=== PATIENT | female | born 1955 | race Two or more races ===

== ENCOUNTER 2023-11-12 20:31 | Inpatient (IN) | payer OTHER ==
[~2023-11-12] VITALS: Ht 129.5 cm; Wt 67.2 kg
[~2023-11-12 20:31] MED LIST: CEPH-510 PO; ONDA-144 PO; SPIR100T4 PO
[2023-11-12 22:59] LABS: Basophils # (auto) 0 10 ^3/uL (0-0.2); Basophils % (auto) 0.1 % (0.0-2.0); Eosinophils # (auto) 0 10 ^3/uL (0-0.8); Eosinophils % (auto) 0.2 % (0.0-7.0); Hematocrit 33.2 % (36.0-46.0); Lymphocytes # (auto) 0.7 10 ^3/uL (0.4-5.4); Monocytes # (auto) 0.7 10 ^3/uL (0-1.3); Nucleated Red Blood Cells % 0.1 %
[2023-11-12 23:00] LABS: Hemoglobin 11.6 g/dL (12.2-16.2); Mean Corpuscular Hemoglobin 36.4 pg (28.0-32.0); Mean Corpuscular Volume 104.2 fL (80.0-100.0); Monocytes % (auto) 10.3 % (0.0-12.0); Neutrophils # (auto) 5.2 10 ^3/uL (1.6-8.6); Neutrophils % (auto) 79.4 % (37.0-80.0); Red Blood Cells 3.18 10^6/uL (4.0-5.20); Red Cell Distribution Width 15.8 % (11.8-14.3); White Blood Cell 6.6 10^3/uL (4.4-10.8)
[2023-11-12 23:15] LABS: INR 2.04 (0.9-1.15); Partial Thromboplastin Time 41.1 SEC (24.5-34.5); Prothrombin Time 20.4 sec (9.3-11.8)
[2023-11-12 23:19] LABS: Alanine Aminotransferase 29 U/L (7-40); Albumin 2.3 g/dL (3.2-4.8); Alkaline Phosphatase 173 U/L (46-116); Anion Gap 7 (5-15); Aspartate Aminotransferase 48 U/L (13-40); BUN/Creatinine Ratio 7.8 (10.0-20.0); Bilirubin, Total 5.2 mg/dL (0.2-1.0); Blood Urea Nitrogen 7 mg/dL (9-23); Calcium 7.5 mg/dL (8.7-10.4); Carbon Dioxide 24 mmol/L (20-30); Chloride 104 mmol/L (98-107); Glucose 122 mg/dL (74-106); Lipase 36 U/L (12-53); Potassium 2.9 mmol/L (3.5-5.1); Sodium 135 mmol/L (136-145); Total Protein 6.3 g/dL (5.7-8.2)
[2023-11-12 23:56] LABS: Large Platelets FEW; Platelet Estimate Decreased
[2023-11-12 23:57] LABS: Macrocytosis Slight
[2023-11-13] MEDS ORDERED: cefTRIAXone 2GM/50ML D5W 50 ML IV ONE (00:45)
[2023-11-13] MEDS: POTASSIUM CHL 20 Meq TABLET PO ONE (02:07)
[2023-11-13] MEDS: SODIUM CHLORIDE 0.9% 1,000 ML IV ONE (02:07)
[2023-11-13] MEDS ORDERED: cefTRIAXone 1GM/50ML D5W 50 ML IV ONE (04:45)
[2023-11-13] MEDS: cefTRIAXone 1GM/50ML D5W 50 ML IV ONE ×2 (04:52→11:02)
[2023-11-13] MEDS ORDERED: ONDANSETRON HCL 4 MG/2 ML VIAL IV PRN (05:15)
[2023-11-13] MEDS: CALCIUM GLUC 1,000mg/50ml-NS 50 ML IV ONE (05:31)
[2023-11-13] MEDS: POTASSIUM CHLORIDE 20 MEQ, LIDOCAINE 1% (LOCAL ANESTH.) 2 ML in SODIUM CHL 0.9% 100 ML IV ONE (08:48)
[2023-11-13] MEDS: LACTULOSE 20Gm/30ML SOLN PO SCH ×2 (09:45→22:00)
[2023-11-13] MEDS: SPIRONOLACTONE 25 MG TAB PO SCH (09:50)
[2023-11-13] MEDS: FUROSEMIDE 20 MG TAB PO SCH (09:50)
[2023-11-13] MEDS: PROPRANOLOL HCL 20 MG TAB PO SCH (09:51)
[2023-11-13 10:08] LABS: Basophils # (auto) 0 10 ^3/uL (0-0.2); Basophils % (auto) 0.2 % (0.0-2.0); Eosinophils # (auto) 0 10 ^3/uL (0-0.8); Eosinophils % (auto) 0.3 % (0.0-7.0); Hemoglobin 11.1 g/dL (12.2-16.2); Lymphocytes # (auto) 0.5 10 ^3/uL (0.4-5.4); Lymphocytes % (auto) 8.5 % (10.0-50.0); Mean Corpuscular Hemoglobin 35.5 pg (28.0-32.0); Mean Corpuscular Hgb Conc. 33.6 g/dL (32.0-36.0); Mean Corpuscular Volume 105.6 fL (80.0-100.0); Monocytes # (auto) 0.4 10 ^3/uL (0-1.3); Monocytes % (auto) 6.4 % (0.0-12.0); Neutrophils # (auto) 5.1 10 ^3/uL (1.6-8.6); Neutrophils % (auto) 84.6 % (37.0-80.0); Nucleated Red Blood Cells % 0.2 %; Red Blood Cells 3.13 10^6/uL (4.0-5.20); Red Cell Distribution Width 15.8 % (11.8-14.3); White Blood Cell 6.1 10^3/uL (4.4-10.8)
[2023-11-13 10:25] LABS: Alanine Aminotransferase 28 U/L (7-40); Albumin 2.2 g/dL (3.2-4.8); Alkaline Phosphatase 161 U/L (46-116); Anion Gap 10 (5-15); Aspartate Aminotransferase 49 U/L (13-40); BUN/Creatinine Ratio 9.3 (10.0-20.0); Blood Urea Nitrogen 7 mg/dL (9-23); Calcium 7.3 mg/dL (8.7-10.4); Carbon Dioxide 21 mmol/L (20-30); Chloride 105 mmol/L (98-107); Glucose 86 mg/dL (74-106); Magnesium 1.7 mg/dL (1.6-2.6); Potassium 3.3 mmol/L (3.5-5.1); Sodium 136 mmol/L (136-145)
[2023-11-13 10:26] LABS: Bilirubin, Total 4.8 mg/dL (0.2-1.0)
[2023-11-13 10:53] LABS: Hepatitis B Surface Antigen Negative (Negative)
[2023-11-13 11:09] LABS: INR 2.09 (0.9-1.15); Partial Thromboplastin Time 44.6 SEC (24.5-34.5); Prothrombin Time 20.9 sec (9.3-11.8)
[2023-11-13 11:14] LABS: Hepatitis A Ab IgM Negative
[2023-11-13 11:15] LABS: Hepatitis B Core IgM Negative; Hepatitis C Antibody Negative (Negative)
[2023-11-13] MEDS: phytonadione 10 MG in SODIUM CHL 0.9% 50 ML IV ONE ×2 (11:30→14:58)
[2023-11-13 12:05] LABS: % Iron Saturation 33.5 % (15-50)
[2023-11-13 12:08] LABS: Ferritin 85.6 ng/mL (10-291); Folate (Folic Acid) 15.75 ng/mL (>5.38)
[2023-11-13] MEDS: LACTULOSE 20Gm/30ML SOLN PO ONE (12:32)
[2023-11-13 12:54] LABS: Hepatitis B Core Total AB Negative (Negative)
[2023-11-13 13:01] LABS: Lactic Acid w/Reflex 2.7 mmol/L (0.4-2.0)
[2023-11-13 13:03] LABS: Erythrocyte Sedimentation Rate 26 mm/hr (0-20)
[2023-11-13 13:04] LABS: COVID19 ANTIGEN SOFIA FIA NEGATIVE (NEGATIVE); Rapid Influenza A Negative (Negative); Rapid Influenza B Negative (Negative)
[2023-11-13 13:10] LABS: Hepatitis A Total Antibody Positive (Negative)
[2023-11-13 13:11] LABS: Hepatitis B Surface Antibody Negative (Negative); Hepatitis B Surface Antigen Negative (Negative); Hepatitis C Antibody Negative (Negative)
[2023-11-13] MEDS: MAGNESIUM SULFATE 1GM/100ML 100 ML IV ONE (14:44)
[2023-11-13 15:29] VITALS: PULSE 92; RESP 19; O2SAT 97
[2023-11-13] MEDS ORDERED: ACETAMINOPHEN 500 MG TAB PO PRN (15:45)
[2023-11-13] MEDS: diphenhdrAMINE HCL 50 MG/1 ML VL ONE (15:57)
[2023-11-13] MEDS: diphenhdrAMINE HCL 50 MG/1 ML VL IV ONE ×2 (15:58→16:00)
[2023-11-13] MEDS: EPINEPHrine HCL 1 MG/1 ML AMP ONE (16:03)
[2023-11-13] MEDS: EPINEPHrine HCL 0.5 ML NEB ONE (16:11)
[2023-11-13] MEDS: ALBUTEROL SULF 2.5 MG/0.5ML(0.5%) NEB SOLN ONE (16:11)
[2023-11-13] MEDS: POTASSIUM CHL 20MEQ/100ML 100 ML IV ONE (16:31)
[2023-11-13 16:53] LABS: INR 2.05 (0.9-1.15); Partial Thromboplastin Time 38.1 SEC (24.5-34.5); Prothrombin Time 20.5 sec (9.3-11.8)
[2023-11-13 16:57] LABS: Alanine Aminotransferase 29 U/L (7-40); Alkaline Phosphatase 173 U/L (46-116); Anion Gap 8 (5-15); Aspartate Aminotransferase 53 U/L (13-40); BUN/Creatinine Ratio 7.8 (10.0-20.0); Blood Urea Nitrogen 8 mg/dL (9-23); Calcium 7.8 mg/dL (8.5-10.1); Carbon Dioxide 23 mmol/L (20-30); Chloride 107 mmol/L (98-107); Glucose 87 mg/dL (74-106); Potassium 3.6 mmol/L (3.5-5.1); Sodium 138 mmol/L (136-145)
[2023-11-13 16:58] LABS: Albumin 2.5 g/dL (3.2-4.8); Bilirubin, Total 4.4 mg/dL (0.2-1.0); Total Protein 6.6 g/dL (5.7-8.2)
[2023-11-13 16:59] LABS: Lactic Acid w/Reflex 4.7 mmol/L (0.4-2.0)
[2023-11-13 17:10] LABS: Magnesium 2.1 mg/dL (1.6-2.6)
[2023-11-13] MEDS ORDERED: VANCOMYCIN PER PHARMACY 0 MG IV SCH (17:15)
[2023-11-13] MEDS: EPINEPHrine HCL 1 MG/1 ML AMP SC ONE (17:54)
[2023-11-13] MEDS ORDERED: EPINEPHrine HCL 1 MG/1 ML AMP SC PRN ×2 (18:00→19:00)
[2023-11-13] MEDS: metroNIDAZOLE 500MG/100ML 100 ML IV SCH (18:17)
[2023-11-13] MEDS: HYDROCORTISONE SOD SUCC 100 MG/2ML INJ VIAL IV SCH (18:18)
[2023-11-13] MEDS: FAMOTIDINE (10MG/ML) 2ML VL IV ONE (18:21)
[2023-11-13 19:30] VITALS: PULSE 89; RESP 17; O2SAT 96
[2023-11-13] MEDS: VANCOMYCIN 1GM/200ML 200 ML IV ONE (20:00)
[2023-11-13] MEDS: CEFEPIME 1GM/ 50ML 50 ML IV SCH (22:00)
[2023-11-14] MEDS: metroNIDAZOLE 500MG/100ML 100 ML IV SCH (01:13)
[2023-11-14 06:12] LABS: Basophils # (auto) 0 10 ^3/uL (0-0.2); Eosinophils # (auto) 0 10 ^3/uL (0-0.8); Hematocrit 29.9 % (36.0-46.0); Hemoglobin 10.4 g/dL (12.2-16.2); Monocytes # (auto) 0.2 10 ^3/uL (0-1.3); Neutrophils # (auto) 3.7 10 ^3/uL (1.6-8.6); Neutrophils % (auto) 84.4 % (37.0-80.0); Nucleated Red Blood Cells % 0.1 %; White Blood Cell 4.4 10^3/uL (4.4-10.8)
[2023-11-14 06:17] LABS: Basophils % (auto) 0.1 % (0.0-2.0); Lymphocytes # (auto) 0.5 10 ^3/uL (0.4-5.4); Lymphocytes % (auto) 10.4 % (10.0-50.0); Mean Corpuscular Hemoglobin 36.6 pg (28.0-32.0); Mean Corpuscular Hgb Conc. 34.8 g/dL (32.0-36.0); Mean Corpuscular Volume 105.3 fL (80.0-100.0); Monocytes % (auto) 5.1 % (0.0-12.0); Red Blood Cells 2.84 10^6/uL (4.0-5.20); Red Cell Distribution Width 16.6 % (11.8-14.3)
[2023-11-14 06:27] LABS: Alanine Aminotransferase 56 U/L (7-40); Alkaline Phosphatase 110 U/L (46-116); Anion Gap 9 (5-15); Aspartate Aminotransferase 113 U/L (13-40); BUN/Creatinine Ratio 10.5 (10.0-20.0); Bilirubin, Total 3.7 mg/dL (0.2-1.0); Blood Urea Nitrogen 11 mg/dL (9-23); Calcium 7.6 mg/dL (8.5-10.1); Carbon Dioxide 20 mmol/L (20-30); Chloride 109 mmol/L (98-107); Cholesterol 84 mg/dL (< 200); Glucose 119 mg/dL (74-106); HDL Cholesterol 25 mg/dL (40-59); INR 2.19 (0.9-1.15); LDL Cholesterol 37 mg/dL (< 100); Partial Thromboplastin Time 43.9 SEC (24.5-34.5); Potassium 3.5 mmol/L (3.5-5.1); Prothrombin Time 21.8 sec (9.3-11.8); Sodium 138 mmol/L (136-145); Triglycerides 61 mg/dL (< 150)
[2023-11-14 06:28] LABS: Total Protein 5.4 g/dL (5.7-8.2)
[2023-11-14] MEDS: ALBUTEROL SULF 2.5 MG/0.5ML(0.5%) NEB SOLN NEB ONE (07:48)
[2023-11-14 08:03] LABS: Platelet Estimate Markedly Decreased
[2023-11-14 08:06] LABS: Anti-Nuclear Antibody Direct Negative (Negative)
[2023-11-14] MEDS ORDERED: cefTRIAXone 1GM/50ML D5W 50 ML IV SCH (09:00)
[2023-11-14] MEDS ORDERED: HYDROCORTISONE SOD SUCC 100 MG/2ML INJ VIAL IV SCH (10:00)
[2023-11-14] MEDS: SPIRONOLACTONE 25 MG TAB PO SCH (10:00)
[2023-11-14 10:52] VITALS: O2SAT 95
[2023-11-14 10:59] LABS: Sodium Urine < 10 mmol/L (40-220)
[2023-11-14 11:05] LABS: Amphetamine Screen, Urine Neg (NEGATIVE); Benzodiazephine Screen, Urine Neg (NEGATIVE)
[2023-11-14 11:06] LABS: Barbiturate Scree,Urine Neg (NEGATIVE); Cannabinoid Screen, Urine Neg (NEGATIVE); Cocaine Screen, Urine Neg (NEGATIVE); Opiate Scree,Urine Neg (NEGATIVE); Phencyclidine Screen, Urine Neg (NEGATIVE)
[2023-11-14 11:25] LABS: Urine Bacteria FEW /hpf (None Seen); Urine Blood 1+ /uL (Negative); Urine Clarity Clear (Clear); Urine Color Yellow (Yellow); Urine Hyaline Cast MOD /lpf (0 - 2); Urine Mucus FEW (None Seen); Urine Protein, UAD TRACE (Negative); Urine Specific Gravity 1.024 (1.001-1.035); Urine Urobilinogen Normal (Negative); Urine WBC 2 /hpf (0 - 5)
[2023-11-14] MEDS ORDERED: INFLUENZA QUAD 2023-2024 0.5 ML SYRG IM ONE (11:45)
[2023-11-14] MEDS: FAMOTIDINE (10MG/ML) 2ML VL IV SCH (12:27)
[2023-11-14 12:29] LABS: Basophils # (auto) 0 10 ^3/uL (0-0.2); Basophils % (auto) 0.1 % (0.0-2.0); Eosinophils # (auto) 0 10 ^3/uL (0-0.8); Lymphocytes # (auto) 0.5 10 ^3/uL (0.4-5.4); Monocytes # (auto) 0.3 10 ^3/uL (0-1.3); Monocytes % (auto) 6.3 % (0.0-12.0); Neutrophils # (auto) 4.5 10 ^3/uL (1.6-8.6); Nucleated Red Blood Cells % 0.1 %; White Blood Cell 5.3 10^3/uL (4.4-10.8)
[2023-11-14 12:32] LABS: Eosinophils % (auto) 0.1 % (0.0-7.0); Hemoglobin 10.4 g/dL (12.2-16.2); Lymphocytes % (auto) 8.8 % (10.0-50.0); Mean Corpuscular Hemoglobin 35.7 pg (28.0-32.0); Mean Corpuscular Hgb Conc. 33.6 g/dL (32.0-36.0); Mean Corpuscular Volume 106.3 fL (80.0-100.0); Neutrophils % (auto) 84.7 % (37.0-80.0); Red Blood Cells 2.91 10^6/uL (4.0-5.20); Red Cell Distribution Width 16.6 % (11.8-14.3)
[2023-11-14 12:35] LABS: Alanine Aminotransferase 64 U/L (7-40); Albumin 2.1 g/dL (3.2-4.8); Alkaline Phosphatase 103 U/L (46-116); Anion Gap 8 (5-15); Aspartate Aminotransferase 111 U/L (13-40); BUN/Creatinine Ratio 14.4 (10.0-20.0); Blood Urea Nitrogen 15 mg/dL (9-23); Calcium 7.5 mg/dL (8.7-10.4); Carbon Dioxide 20 mmol/L (20-30); Chloride 109 mmol/L (98-107); Glucose 185 mg/dL (74-106); Magnesium 2.1 mg/dL (1.6-2.6); Potassium 3.5 mmol/L (3.5-5.1); Sodium 137 mmol/L (136-145)
[2023-11-14 12:36] LABS: Total Protein 5.7 g/dL (5.7-8.2)
[2023-11-14 12:39] LABS: INR 2.31 (0.9-1.15); Partial Thromboplastin Time 45.2 SEC (24.5-34.5)
[2023-11-14 12:57] VITALS: BP 104/56; PULSE 75; RESP 14; TEMP 97.4; O2SAT 98
[2023-11-14] MEDS ORDERED: FURO1TAB33 PO (13:09)
[2023-11-14] MEDS: cefTRIAXone 1GM/50ML D5W 50 ML IV ONE (15:13)
[2023-11-14] MEDS ORDERED: cefTRIAXone 1GM/50ML D5W 50 ML IV ONE (15:15)
[2023-11-14 17:00] VITALS: BP 107/57; PULSE 80; RESP 17; TEMP 97.6; O2SAT 97
[2023-11-14] MEDS: VANCOMYCIN HCL 125 MG CAP PO SCH (17:51)
[2023-11-14 20:00] VITALS: PULSE 74; PULSE 82; RESP 17; O2SAT 99
[2023-11-14 22:00] VITALS: BP 106/51; PULSE 74; RESP 17; TEMP 98.6; O2SAT 99
[2023-11-15] VITALS (7 sets, daily range): BP systolic 100–119; BP diastolic 52–60; PULSE 65–79; RESP 17–24; TEMP 97.3–98.8; O2SAT 95–100
[2023-11-15 06:15] LABS: Basophils # (auto) 0 10 ^3/uL (0-0.2); Basophils % (auto) 0.1 % (0.0-2.0); Eosinophils # (auto) 0 10 ^3/uL (0-0.8); Hemoglobin 10.4 g/dL (12.2-16.2); Lymphocytes # (auto) 0.6 10 ^3/uL (0.4-5.4); Lymphocytes % (auto) 9.2 % (10.0-50.0); Monocytes # (auto) 0.4 10 ^3/uL (0-1.3); Neutrophils # (auto) 5.7 10 ^3/uL (1.6-8.6); Neutrophils % (auto) 84.5 % (37.0-80.0)
[2023-11-15 06:18] LABS: Eosinophils % (auto) 0.1 % (0.0-7.0); Hematocrit 29.9 % (36.0-46.0); Mean Corpuscular Hemoglobin 36.9 pg (28.0-32.0); Mean Corpuscular Hgb Conc. 34.9 g/dL (32.0-36.0); Mean Corpuscular Volume 105.7 fL (80.0-100.0); Monocytes % (auto) 6.1 % (0.0-12.0); Red Blood Cells 2.83 10^6/uL (4.0-5.20); Red Cell Distribution Width 16.5 % (11.8-14.3); White Blood Cell 6.7 10^3/uL (4.4-10.8)
[2023-11-15 06:30] LABS: Alanine Aminotransferase 60 U/L (7-40); Alkaline Phosphatase 120 U/L (46-116); Anion Gap 7 (5-15); Aspartate Aminotransferase 74 U/L (13-40); BUN/Creatinine Ratio 15.7 (10.0-20.0); Blood Urea Nitrogen 14 mg/dL (9-23); Calcium 7.7 mg/dL (8.7-10.4); Carbon Dioxide 21 mmol/L (20-30); Chloride 109 mmol/L (98-107); Glucose 98 mg/dL (74-106); Magnesium 2.3 mg/dL (1.6-2.6); Potassium 3.6 mmol/L (3.5-5.1); Sodium 137 mmol/L (136-145)
[2023-11-15 06:31] LABS: Bilirubin, Total 2.2 mg/dL (0.2-1.0); INR 2.2 (0.9-1.15); Partial Thromboplastin Time 44.7 SEC (24.5-34.5); Prothrombin Time 21.9 sec (9.3-11.8); Total Protein 5.5 g/dL (5.7-8.2)
[2023-11-15 08:28] LABS: Platelet Estimate 24
[2023-11-15 08:29] LABS: Macrocytosis Moderate
[2023-11-15] MEDS ORDERED: cefTRIAXone 1GM/50ML D5W 50 ML IV SCH (09:00)
[2023-11-15] MEDS: cefTRIAXone 1GM/50ML D5W 50 ML IV SCH (09:25)
[2023-11-15] MEDS: FLORASTOR (S. BOULARDII) 250 MG CAP PO SCH (09:29)
[2023-11-15] MEDS: POTASSIUM CHL 20 Meq TABLET PO SCH (09:29)
[2023-11-15] MEDS: LACTULOSE 20Gm/30ML SOLN PO SCH (09:29)
[2023-11-15] MEDS: FUROSEMIDE 40 MG TAB PO SCH (10:00)
[2023-11-15] MEDS: PROPRANOLOL HCL 20 MG TAB PO SCH (10:00)
[2023-11-15 17:06] LABS: Actin (Smooth Muscle) Antibody 32 Units (0-19)
[2023-11-16 05:00] VITALS: BP 125/52; PULSE 77; RESP 16; TEMP 97.4; O2SAT 98
[2023-11-16 06:43] LABS: Alanine Aminotransferase 59 U/L (7-40); Albumin 2.1 g/dL (3.2-4.8); Alkaline Phosphatase 109 U/L (46-116); Anion Gap 6 (5-15); Aspartate Aminotransferase 61 U/L (13-40); BUN/Creatinine Ratio 14.7 (10.0-20.0); Basophils # (auto) 0 10 ^3/uL (0-0.2); Basophils % (auto) 0.2 % (0.0-2.0); Blood Urea Nitrogen 11 mg/dL (9-23); Calcium 7.8 mg/dL (8.7-10.4); Carbon Dioxide 22 mmol/L (20-30); Chloride 111 mmol/L (98-107); Eosinophils # (auto) 0.1 10 ^3/uL (0-0.8); Eosinophils % (auto) 1.5 % (0.0-7.0); Glucose 97 mg/dL (74-106); Lymphocytes # (auto) 0.8 10 ^3/uL (0.4-5.4); Magnesium 2.1 mg/dL (1.6-2.6); Monocytes # (auto) 0.4 10 ^3/uL (0-1.3); Neutrophils # (auto) 2.6 10 ^3/uL (1.6-8.6); Potassium 3.2 mmol/L (3.5-5.1); Sodium 139 mmol/L (136-145); White Blood Cell 3.9 10^3/uL (4.4-10.8)
[2023-11-16 06:44] LABS: Total Protein 5.6 g/dL (5.7-8.2)
[2023-11-16 06:45] LABS: Hematocrit 32.3 % (36.0-46.0); Hemoglobin 11.1 g/dL (12.2-16.2); Lymphocytes % (auto) 20.8 % (10.0-50.0); Mean Corpuscular Hemoglobin 35.9 pg (28.0-32.0); Mean Corpuscular Hgb Conc. 34.2 g/dL (32.0-36.0); Mean Corpuscular Volume 104.9 fL (80.0-100.0); Monocytes % (auto) 11.3 % (0.0-12.0); Neutrophils % (auto) 66.2 % (37.0-80.0); Nucleated Red Blood Cells % 0.2 %; Red Blood Cells 3.08 10^6/uL (4.0-5.20)
[2023-11-16 07:19] LABS: INR 1.79 (0.9-1.15); Prothrombin Time 18.1 sec (9.3-11.8)
[2023-11-16 08:00] VITALS: PULSE 70; PULSE 71; RESP 20; O2SAT 99
[2023-11-16 08:19] LABS: Anisocytosis Slight; Macrocytosis Slight
[2023-11-16 08:20] LABS: Platelet Estimate Markedly Decreased
[2023-11-16] MEDS: LACTULOSE 20Gm/30ML SOLN PO SCH (08:32)
[2023-11-16 08:33] VITALS: BP 95/56; PULSE 69; RESP 17; TEMP 97.5; O2SAT 95
[2023-11-16] MEDS: POTASSIUM CHL 20 Meq TABLET PO ONE (08:33)
[2023-11-16] MEDS ORDERED: LACT10PA2 PO (10:31)
[2023-11-16] MEDS ORDERED: VANC125PO PO (10:31)
[2023-11-16 12:52] VITALS: BP 106/60; PULSE 78; RESP 17; TEMP 97.8; O2SAT 98
== END 2023-11-16 14:15 | disposition home or self-care (01) ==
LOC: ER 20:31 → OVERFLOW 11-13 05:19 → CENTRAL 11-14 11:01 → TELE-CENTR 11-15 05:39
PROVIDERS: ADMIT Internal Medicine Geriatric Medicine; ATTEND Internal Medicine Geriatric Medicine
DX: K74.60 Unspecified cirrhosis of liver (principal); K76.7 Hepatorenal syndrome; I67.1 Cerebral aneurysm, nonruptured; A04.72 Enterocolitis due to Clostridium difficile, not specified as recurrent; D68.9 Coagulation defect, unspecified; D69.6 Thrombocytopenia, unspecified; R65.10 Systemic inflammatory response syndrome (SIRS) of non-infectious origin without acute organ dysfunction; K76.6 Portal hypertension; N17.9 Acute kidney failure, unspecified; E87.1 Hypo-osmolality and hyponatremia; D63.8 Anemia in other chronic diseases classified elsewhere; I85.10 Secondary esophageal varices without bleeding; E87.20 Acidosis, unspecified; Z20.822 Contact with and (suspected) exposure to COVID-19; J90 Pleural effusion, not elsewhere classified; S30.1XXA Contusion of abdominal wall, initial encounter; E87.6 Hypokalemia; E80.6 Other disorders of bilirubin metabolism; R16.1 Splenomegaly, not elsewhere classified; K80.20 Calculus of gallbladder without cholecystitis without obstruction; I10 Essential (primary) hypertension; E83.42 Hypomagnesemia; R74.01 Elevation of levels of liver transaminase levels; X58.XXXA Exposure to other specified factors, initial encounter; T78.2XXA Anaphylactic shock, unspecified, initial encounter; D53.9 Nutritional anemia, unspecified; E66.01 Morbid (severe) obesity due to excess calories; H54.8 Legal blindness, as defined in USA; K92.2 Gastrointestinal hemorrhage, unspecified; Y93.89 Activity, other specified; Y92.89 Other specified places as the place of occurrence of the external cause; Y99.8 Other external cause status; Z68.41 Body mass index [BMI] 40.0-44.9, adult; K75.81 Nonalcoholic steatohepatitis (NASH)
CPT/HCPCS: 36415; 70450; 71045; 76705; 80053; 80061; 80074; 80307; 80320; 81001; 82140; 82270; 82550; 82570; 82607; 82728; 82746; 83010; 83036; 83540; 83550; 83605; 83615; 83690; 83735; 83880; 84300; 84425; 84443; 84484; 85025; 85045; 85048; 85384; 85610; 85652; 85730; 86038; 86141; 86704; 86706; 86708; 86803; 87040; 87081; 87086; 87340; 87426; 87493; 87804; 93005; 93306; 94640; 96361; 96365; G0378; J0171; J2001; J3430; J3480; J3490

== ENCOUNTER 2023-11-25 07:31 | Inpatient (IN) | payer OTHER ==
[~2023-11-25] VITALS: Ht 144.8 cm; Wt 22.4 kg
[2023-11-25] VITALS (10 sets, daily range): BP systolic 93–111; BP diastolic 50–58; PULSE 83–120; RESP 13–25; TEMP 97.7–98; O2SAT 93–100
[~2023-11-25 07:31] MED LIST changes: -CEPH-510 PO; +LACT10PA2 PO; -ONDA-144 PO; -SPIR100T4 PO; +VANC125PO PO
[2023-11-25 08:39] LABS: Basophils # (auto) 0 10 ^3/uL (0-0.2); Eosinophils # (auto) 0 10 ^3/uL (0-0.8); Hemoglobin 11.5 g/dL (12.2-16.2); Lymphocytes # (auto) 0.3 10 ^3/uL (0.4-5.4); Lymphocytes % (auto) 5.1 % (10.0-50.0); Monocytes # (auto) 0.1 10 ^3/uL (0-1.3); Neutrophils # (auto) 4.6 10 ^3/uL (1.6-8.6)
[2023-11-25 08:41] LABS: Basophils % (auto) 0.8 % (0.0-2.0); Eosinophils % (auto) 0.9 % (0.0-7.0); Hematocrit 34.4 % (36.0-46.0); Mean Corpuscular Hemoglobin 36.1 pg (28.0-32.0); Mean Corpuscular Hgb Conc. 33.4 g/dL (32.0-36.0); Mean Corpuscular Volume 108.2 fL (80.0-100.0); Monocytes % (auto) 1.3 % (0.0-12.0); Neutrophils % (auto) 91.9 % (37.0-80.0); Nucleated Red Blood Cells % 0.2 %; Red Blood Cells 3.18 10^6/uL (4.0-5.20); Red Cell Distribution Width 17.7 % (11.8-14.3)
[2023-11-25] MEDS: IBUPROFEN 400 MG TAB PO ONE (08:47)
[2023-11-25] MEDS: SODIUM CHLORIDE 0.9% 1,000 ML IV ONE (08:48)
[2023-11-25] MEDS: SODIUM CHLORIDE 0.9% 2,050 ML IV ONE (09:21)
[2023-11-25 09:22] LABS: Alanine Aminotransferase 37 U/L (7-40); Albumin 2.4 g/dL (3.2-4.8); Alkaline Phosphatase 167 U/L (46-116); Anion Gap 8 (5-15); Aspartate Aminotransferase 53 U/L (13-40); BUN/Creatinine Ratio 8.8 (10.0-20.0); Blood Urea Nitrogen 6 mg/dL (9-23); Calcium 7.8 mg/dL (8.7-10.4); Carbon Dioxide 23 mmol/L (20-30); Chloride 105 mmol/L (98-107); Glucose 90 mg/dL (74-106); Magnesium 1.5 mg/dL (1.6-2.6); Potassium 3.7 mmol/L (3.5-5.1); Sodium 136 mmol/L (136-145)
[2023-11-25 09:23] LABS: Bilirubin, Total 4.7 mg/dL (0.2-1.0); Total Protein 6.1 g/dL (5.7-8.2)
[2023-11-25] MEDS: FUROSEMIDE 40 MG/4 ML VIAL IV ONE (09:30)
[2023-11-25] MEDS: PIPERACILLIN-TAZOB 3.375GM 100 ML IV ONE (09:31)
[2023-11-25 09:53] LABS: Lactic Acid w/Reflex 3.3 mmol/L (0.4-2.0)
[2023-11-25 10:33] LABS: Urine Bacteria NONE SEEN /hpf (None Seen); Urine Blood 1+ /uL (Negative); Urine Clarity HAZY (Clear); Urine Color Yellow (Yellow); Urine Mucus FEW (None Seen); Urine Protein, UAD TRACE (Negative); Urine Specific Gravity 1.012 (1.001-1.035); Urine Urobilinogen Normal (Negative); Urine WBC 6 /hpf (0 - 5)
[2023-11-25] MEDS: MAGNESIUM SULFATE 1GM/100ML 100 ML IV SCH ×2 (11:35→15:25)
[2023-11-25] MEDS: LACTULOSE 20Gm/30ML SOLN PO ONE (12:51)
[2023-11-25] MEDS ORDERED: MORPHINE SULFATE INJ 2 MG/ml SYRG IV PRN (14:30)
[2023-11-25] MEDS: NOREPINEPHRINE 8 MG/250ML KIT 250 ML IV SCH (14:30)
[2023-11-25] MEDS ORDERED: MORPHINE SULFATE 4 MG/ML SYR/VIAL IV PRN (14:30)
[2023-11-25] MEDS: cefTRIAXone 2GM/50ML D5W 50 ML IV ONE (14:30)
[2023-11-25] MEDS ORDERED: VANCOMYCIN PER PHARMACY 0 MG IV SCH (14:30)
[2023-11-25] MEDS ORDERED: cefTRIAXone 1GM/50ML D5W 50 ML IV ONE (14:30)
[2023-11-25] MEDS ORDERED: ONDANSETRON HCL 4 MG/2 ML VIAL IV PRN (14:30)
[2023-11-25 15:18] LABS: INR 1.94 (0.9-1.15); Prothrombin Time 19.5 sec (9.3-11.8)
[2023-11-25 15:29] LABS: Lactic Acid w/Reflex 2.9 mmol/L (0.4-2.0)
[2023-11-25] MEDS: SPIRONOLACTONE 25 MG TAB PO ONE (15:33)
[2023-11-25] MEDS: VANCOMYCIN 1GM/200ML 200 ML IV ONE (16:05)
[2023-11-25] MEDS: PANTOPRAZOLE 40 MG/10 ML VIAL INJ IV ONE (16:05)
[2023-11-25 16:52] LABS: COVID19 ANTIGEN SOFIA FIA NEGATIVE (NEGATIVE); Rapid Influenza A Negative (Negative); Rapid Influenza B Negative (Negative)
[2023-11-25] MEDS: SODIUM CHLORIDE 0.9% 1,000 ML IV SCH (17:45)
[2023-11-25] MEDS: LACTULOSE 20Gm/30ML SOLN PO SCH (21:42)
[2023-11-26] VITALS (17 sets, daily range): BP systolic 83–117; BP diastolic 45–58; PULSE 82–101; RESP 14–26; TEMP 97.3–98.4; O2SAT 96–100
[2023-11-26 05:03] LABS: Basophils # (auto) 0 10 ^3/uL (0-0.2); Eosinophils # (auto) 0 10 ^3/uL (0-0.8); Lymphocytes # (auto) 0.3 10 ^3/uL (0.4-5.4); Monocytes # (auto) 0.3 10 ^3/uL (0-1.3); Neutrophils # (auto) 4.4 10 ^3/uL (1.6-8.6)
[2023-11-26 05:06] LABS: Basophils % (auto) 0.2 % (0.0-2.0); Hematocrit 28.7 % (36.0-46.0); Hemoglobin 9.9 g/dL (12.2-16.2); Lymphocytes % (auto) 6.2 % (10.0-50.0); Mean Corpuscular Hemoglobin 37.2 pg (28.0-32.0); Mean Corpuscular Hgb Conc. 34.5 g/dL (32.0-36.0); Mean Corpuscular Volume 107.9 fL (80.0-100.0); Monocytes % (auto) 5.1 % (0.0-12.0); Neutrophils % (auto) 88.5 % (37.0-80.0); Nucleated Red Blood Cells % 0.1 %; Red Blood Cells 2.66 10^6/uL (4.0-5.20); Red Cell Distribution Width 17.8 % (11.8-14.3)
[2023-11-26 05:21] LABS: Alanine Aminotransferase 25 U/L (7-40); Alkaline Phosphatase 130 U/L (46-116); Anion Gap 3 (5-15); Aspartate Aminotransferase 41 U/L (13-40); Blood Urea Nitrogen 7 mg/dL (9-23); Calcium 7.3 mg/dL (8.5-10.1); Carbon Dioxide 24 mmol/L (20-30); Chloride 111 mmol/L (98-107); Glucose 88 mg/dL (74-106); Potassium 3.5 mmol/L (3.5-5.1); Sodium 138 mmol/L (136-145)
[2023-11-26 05:22] LABS: Bilirubin, Total 3.1 mg/dL (0.2-1.0); Total Protein 5.3 g/dL (5.7-8.2)
[2023-11-26] MEDS: PANTOPRAZOLE 40 MG/10 ML VIAL INJ IV SCH (07:54)
[2023-11-26] MEDS: cefTRIAXone 2GM/50ML D5W 50 ML IV SCH (07:54)
[2023-11-26 08:50] LABS: Anisocytosis Slight; Macrocytosis Moderate
[2023-11-26 08:54] LABS: Large Platelets FEW; Platelet Estimate Decreased
[2023-11-26] MEDS: VANCOMYCIN 750mg/150ml 150 ML IV SCH (10:15)
[2023-11-26] MEDS: LACTULOSE 20Gm/30ML SOLN PO ONE (12:45)
[2023-11-26] MEDS: SPIRONOLACTONE 25 MG TAB PO ONE (13:30)
[2023-11-26 15:41] LABS: INR 2.25 (0.9-1.15); Partial Thromboplastin Time 45.6 SEC (24.5-34.5); Prothrombin Time 22.4 sec (9.3-11.8)
[2023-11-26] MEDS: LACTULOSE 20Gm/30ML SOLN PO SCH (21:47)
[2023-11-27] VITALS (50 sets, daily range): BP systolic 92–115; BP diastolic 47–63; PULSE 62–106; RESP 14–29; TEMP 97.9–98.8; O2SAT 95–100
[2023-11-27 04:54] LABS: Potassium 3.5 mmol/L (3.5-5.1)
[2023-11-27 04:55] LABS: Calcium 7.5 mg/dL (8.7-10.4)
[2023-11-27 05:00] LABS: BUN/Creatinine Ratio 13.5 (10.0-20.0)
[2023-11-27 05:02] LABS: Phosphorus 2.1 mg/dL (2.4-5.1)
[2023-11-27] MEDS: SPIRONOLACTONE 25 MG TAB PO SCH (11:09)
[2023-11-27 15:19] LABS: Body Fluid Polymorphonuclear 16 % (0-25); Body Fluid Red Blood Cells 95 CUMM (0-2000); Body Fluid White Blood Cells 10 CUMM (0-200)
[2023-11-27] MEDS: FLORASTOR (S. BOULARDII) 250 MG CAP PO SCH (21:46)
[2023-11-28] VITALS (14 sets, daily range): BP systolic 107–131; BP diastolic 50–67; PULSE 81–99; RESP 12–20; TEMP 97.5–99.3; O2SAT 94–99
[2023-11-28 04:46] LABS: Basophils # (auto) 0 10 ^3/uL (0-0.2); Eosinophils # (auto) 0.1 10 ^3/uL (0-0.8); Hemoglobin 10.2 g/dL (12.2-16.2); Lymphocytes # (auto) 0.5 10 ^3/uL (0.4-5.4); Mean Corpuscular Volume 108.7 fL (80.0-100.0); Monocytes # (auto) 0.3 10 ^3/uL (0-1.3); Red Cell Distribution Width 18.2 % (11.8-14.3); White Blood Cell 3.8 10^3/uL (4.4-10.8)
[2023-11-28 05:02] LABS: Basophils % (auto) 0.4 % (0.0-2.0); Eosinophils % (auto) 2.7 % (0.0-7.0); Hematocrit 30.7 % (36.0-46.0); Lymphocytes % (auto) 13.6 % (10.0-50.0); Mean Corpuscular Hgb Conc. 33.1 g/dL (32.0-36.0); Monocytes % (auto) 8.6 % (0.0-12.0); Neutrophils # (auto) 2.8 10 ^3/uL (1.6-8.6); Neutrophils % (auto) 74.7 % (37.0-80.0); Nucleated Red Blood Cells % 0.3 %; Red Blood Cells 2.82 10^6/uL (4.0-5.20)
[2023-11-28 05:25] LABS: Alanine Aminotransferase 23 U/L (7-40); Albumin 1.9 g/dL (3.2-4.8); Alkaline Phosphatase 109 U/L (46-116); Anion Gap 2 (5-15); Aspartate Aminotransferase 32 U/L (13-40); BUN/Creatinine Ratio 12.5 (10.0-20.0); Bilirubin, Total 2.6 mg/dL (0.2-1.0); Blood Urea Nitrogen 8 mg/dL (9-23); Calcium 7.4 mg/dL (8.7-10.4); Carbon Dioxide 24 mmol/L (20-30); Chloride 110 mmol/L (98-107); Glucose 78 mg/dL (74-106); Potassium 3.8 mmol/L (3.5-5.1); Sodium 136 mmol/L (136-145); Total Protein 5.3 g/dL (5.7-8.2)
[2023-11-28] MEDS: PANTOPRAZOLE 40 MG TAB PO SCH (08:37)
[2023-11-28 13:07] LABS: Protein, Body Fluid 0.3 g/dL (.)
[2023-11-29 05:00] VITALS: BP 116/60; PULSE 97; RESP 20; TEMP 98.1; O2SAT 95
[2023-11-29 09:00] VITALS: BP 128/73; PULSE 108; RESP 20; TEMP 98.1; O2SAT 98
[2023-11-29 13:00] VITALS: BP 125/63; PULSE 102; RESP 18; TEMP 98.2; O2SAT 98
[2023-11-29] MEDS ORDERED: CEFD300C2 PO (13:12)
== END 2023-11-29 17:28 | disposition home or self-care (01) | DRG 720 ==
LOC: ER 07:31 → TELE 14:31 → DOU IN ICU 15:53 → WEST WING 11-28 16:11
PROVIDERS: ADMIT Nurse Practitioner Family; ATTEND Nurse Practitioner Acute Care
PROC: 05HB33Z Insertion of Infusion Device into Right Basilic Vein, Percutaneous Approach (ICD-10-PCS; 2023-11-25)
PROC: B54NZZA Ultrasonography of Left Upper Extremity Veins, Guidance (ICD-10-PCS; 2023-11-25)
PROC: 0W9G3ZZ Drainage of Peritoneal Cavity, Percutaneous Approach (ICD-10-PCS; principal; 2023-11-27)
DX: A41.51 Sepsis due to Escherichia coli [E. coli] (principal); E43 Unspecified severe protein-calorie malnutrition; D69.6 Thrombocytopenia, unspecified; D68.9 Coagulation defect, unspecified; E87.21 Acute metabolic acidosis; K70.31 Alcoholic cirrhosis of liver with ascites; E87.20 Acidosis, unspecified; D63.8 Anemia in other chronic diseases classified elsewhere; K76.6 Portal hypertension; Z20.822 Contact with and (suspected) exposure to COVID-19; I10 Essential (primary) hypertension; E83.42 Hypomagnesemia; H54.8 Legal blindness, as defined in USA; D69.59 Other secondary thrombocytopenia; G89.29 Other chronic pain; K80.20 Calculus of gallbladder without cholecystitis without obstruction; E66.01 Morbid (severe) obesity due to excess calories; H26.9 Unspecified cataract; Z96.1 Presence of intraocular lens; D53.9 Nutritional anemia, unspecified; Z68.1 Body mass index [BMI] 19.9 or less, adult
CPT/HCPCS: 36415; 71046; 76705; 76942; 80053; 80069; 80202; 81001; 82140; 83605; 83615; 83735; 83880; 83986; 84100; 84484; 85025; 85379; 85384; 85610; 85730; 87040; 87077; 87081; 87086; 87186; 87205; 87426; 87493; 87804; 89051; 93005; 99291; C9113; G0378; J2543

== ENCOUNTER 2023-12-29 17:00 | Inpatient (IN) | payer MEDICAID ==
[~2023-12-29] VITALS: Ht 149.9 cm; Wt 61.8 kg
[~2023-12-29 17:00] MED LIST changes: +CEFD300C2 PO; +PROP60CA34 PO; -VANC125PO PO
[2023-12-29 19:26] LABS: Basophils # (auto) 0 10 ^3/uL (0-0.2); Eosinophils # (auto) 0.1 10 ^3/uL (0-0.8); Eosinophils % (auto) 0.9 % (0.0-7.0); Hemoglobin 12.2 g/dL (12.2-16.2); Monocytes # (auto) 0.5 10 ^3/uL (0-1.3); Monocytes % (auto) 6.4 % (0.0-12.0); Nucleated Red Blood Cells % 0.1 %
[2023-12-29 19:29] LABS: Basophils % (auto) 0.1 % (0.0-2.0); Hematocrit 35.5 % (36.0-46.0); Lymphocytes # (auto) 0.4 10 ^3/uL (0.4-5.4); Lymphocytes % (auto) 4.7 % (10.0-50.0); Mean Corpuscular Hemoglobin 36.8 pg (28.0-32.0); Mean Corpuscular Hgb Conc. 34.2 g/dL (32.0-36.0); Mean Corpuscular Volume 107.7 fL (80.0-100.0); Neutrophils # (auto) 6.9 10 ^3/uL (1.6-8.6); Neutrophils % (auto) 87.9 % (37.0-80.0); Red Cell Distribution Width 16.5 % (11.8-14.3); White Blood Cell 7.8 10^3/uL (4.4-10.8)
[2023-12-29 19:32] LABS: INR 1.78 (0.9-1.15)
[2023-12-29 19:36] LABS: Alanine Aminotransferase 29 U/L (7-40); Albumin 2.1 g/dL (3.2-4.8); Alkaline Phosphatase 219 U/L (46-116); Anion Gap 2 (5-15); Aspartate Aminotransferase 53 U/L (13-40); BUN/Creatinine Ratio 17.9 (10.0-20.0); Bilirubin, Total 5.3 mg/dL (0.2-1.0); Blood Urea Nitrogen 14 mg/dL (9-23); Calcium 7.8 mg/dL (8.7-10.4); Carbon Dioxide 28 mmol/L (20-30); Chloride 103 mmol/L (98-107); Glucose 93 mg/dL (74-106); Potassium 4.1 mmol/L (3.5-5.1); Sodium 133 mmol/L (136-145); Total Protein 6.5 g/dL (5.7-8.2)
[2023-12-29 20:02] VITALS: PULSE 86; RESP 20; O2SAT 95
[2023-12-29] MEDS ORDERED: SPIRONOLACTONE 25 MG TAB ONE (21:02)
[2023-12-29] MEDS ORDERED: FUROSEMIDE INJECTION 10 ML ONE (21:02)
[2023-12-29] MEDS: FUROSEMIDE 100 MG/10ML VIAL IV ONE (21:06)
[2023-12-29] MEDS: SPIRONOLACTONE 25 MG TAB PO ONE (21:06)
[2023-12-29] MEDS ORDERED: IBUPROFEN 600 MG TAB PO PRN (22:30)
[2023-12-29] MEDS ORDERED: ONDANSETRON HCL 4 MG/2 ML VIAL IV PRN (22:30)
[2023-12-29] MEDS ORDERED: DOCUSATE SOD 100 MG CAP PO PRN (22:30)
[2023-12-29] MEDS ORDERED: ALBUTEROL SULF 2.5 MG/0.5ML(0.5%) NEB SOLN NEB PRN (22:30)
[2023-12-29 22:39] VITALS: BP 105/59; PULSE 86; RESP 20; O2SAT 95
[2023-12-29] MEDS ORDERED: MORPHINE SULFATE INJ 2 MG/ml SYRG IV PRN (23:15)
[2023-12-29] MEDS ORDERED: NITROGLYCERIN 0.4 MG SL TAB SL PRN (23:15)
[2023-12-29] MEDS ORDERED: ALBUMIN 25% 100 ML IV ONE (23:20)
[2023-12-29] MEDS: ALBUMIN 25% 100 ML IV ONE (23:25)
[2023-12-30] VITALS (8 sets, daily range): BP systolic 99–106; BP diastolic 53–60; PULSE 79–87; RESP 16–20; TEMP 98.1–98.6; O2SAT 92–100
[2023-12-30 02:02] LABS: Urine Bacteria FEW /hpf (None Seen); Urine Blood TRACE /uL (Negative); Urine Clarity Clear (Clear); Urine Color Light-Yellow (Yellow); Urine Hyaline Cast MOD /lpf (0 - 2); Urine Mucus FEW (None Seen); Urine Protein, UAD Negative (Negative); Urine Specific Gravity 1.004 (1.001-1.035); Urine Urobilinogen Normal (Negative); Urine WBC <1 /hpf (0 - 5)
[2023-12-30] MEDS ORDERED: ALBUMIN 25% 100 ML IV ONE (02:35)
[2023-12-30] MEDS: ALBUMIN 25% 100 ML IV ONE ×3 (02:38→09:45)
[2023-12-30 05:28] LABS: Basophils # (auto) 0 10 ^3/uL (0-0.2); Eosinophils # (auto) 0 10 ^3/uL (0-0.8); Eosinophils % (auto) 0.1 % (0.0-7.0); Hemoglobin 8.8 g/dL (12.2-16.2); Lymphocytes # (auto) 0.5 10 ^3/uL (0.4-5.4); Monocytes # (auto) 0.3 10 ^3/uL (0-1.3); Neutrophils # (auto) 3.3 10 ^3/uL (1.6-8.6); Red Blood Cells 2.41 10^6/uL (4.0-5.20); Red Cell Distribution Width 16.6 % (11.8-14.3); White Blood Cell 4.1 10^3/uL (4.4-10.8)
[2023-12-30 05:31] LABS: Basophils % (auto) 0.1 % (0.0-2.0); Hematocrit 26.4 % (36.0-46.0); Lymphocytes % (auto) 12.3 % (10.0-50.0); Mean Corpuscular Hemoglobin 36.5 pg (28.0-32.0); Mean Corpuscular Hgb Conc. 33.4 g/dL (32.0-36.0); Mean Corpuscular Volume 109.5 fL (80.0-100.0); Monocytes % (auto) 7.5 % (0.0-12.0); Nucleated Red Blood Cells % 0.1 %
[2023-12-30 05:42] LABS: Alanine Aminotransferase 17 U/L (7-40); Albumin 2.5 g/dL (3.2-4.8); Alkaline Phosphatase 145 U/L (46-116); Anion Gap 7 (5-15); Aspartate Aminotransferase 33 U/L (13-40); BUN/Creatinine Ratio 14.9 (10.0-20.0); Bilirubin, Total 4.7 mg/dL (0.2-1.0); Blood Urea Nitrogen 14 mg/dL (9-23); Calcium 8.1 mg/dL (8.7-10.4); Carbon Dioxide 25 mmol/L (20-30); Chloride 103 mmol/L (98-107); Glucose 133 mg/dL (74-106); Potassium 3.6 mmol/L (3.5-5.1); Sodium 135 mmol/L (136-145); Total Protein 5.7 g/dL (5.7-8.2)
[2023-12-30] MEDS: SODIUM CHLOR 0.9% PF (SALINE LOCK) 10ML VIAL/SYR IV SCH (06:03)
[2023-12-30 07:52] LABS: Anisocytosis Slight; Macrocytosis Slight; Platelet Estimate Markedly Decreased
[2023-12-30] MEDS: FUROSEMIDE 40 MG/4 ML VIAL IV SCH (09:45)
[2023-12-30] MEDS: SPIRONOLACTONE 25 MG TAB PO SCH (09:46)
[2023-12-30] MEDS: LACTULOSE 20Gm/30ML SOLN ONE (09:54)
[2023-12-30] MEDS: LACTULOSE 20Gm/30ML SOLN PO SCH (09:55)
[2023-12-30] MEDS: SODIUM CHLORIDE 0.9% 1,000 ML IV SCH (11:01)
[2023-12-30] MEDS ORDERED: NOREPINEPHRINE 8 MG/250ML KIT 250 ML IV SCH (12:45)
[2023-12-30] MEDS ORDERED: FUR20T PO (17:26)
[2023-12-31] VITALS (11 sets, daily range): BP systolic 100–137; BP diastolic 49–63; PULSE 58–89; RESP 16–20; TEMP 98–98.5; O2SAT 91–100
[2024-01-01] VITALS (8 sets, daily range): BP systolic 106–123; BP diastolic 40–80; PULSE 79–100; RESP 16–20; TEMP 97.4–98.4; O2SAT 94–99
[2024-01-02 05:00] VITALS: BP 95/43; PULSE 88; RESP 16; TEMP 98.2; O2SAT 97
[2024-01-02 08:00] VITALS: PULSE 93
[2024-01-02 08:22] VITALS: BP 111/55; PULSE 91; RESP 18; TEMP 98.2; O2SAT 94
[2024-01-02] MEDS ORDERED: SPIR25TA PO (11:10)
[2024-01-02] MEDS ORDERED: FURO1TAB31 PO (11:10)
[2024-01-02 12:27] VITALS: BP 133/66; PULSE 104; RESP 18; TEMP 98.1; O2SAT 96
== END 2024-01-02 15:40 | disposition home or self-care (01) | DRG 280 ==
LOC: ER 17:00 → TELE 23:14 → TELE-WESTW 23:24
PROVIDERS: ADMIT Nurse Practitioner Family; ATTEND Family Medicine
PROC: 30233R1 Transfusion of Nonautologous Platelets into Peripheral Vein, Percutaneous Approach (ICD-10-PCS; principal; 2023-12-30)
PROC: 0W9G3ZZ Drainage of Peritoneal Cavity, Percutaneous Approach (ICD-10-PCS; 2024-01-01)
DX: K70.31 Alcoholic cirrhosis of liver with ascites (principal); K70.40 Alcoholic hepatic failure without coma; J96.00 Acute respiratory failure, unspecified whether with hypoxia or hypercapnia; E43 Unspecified severe protein-calorie malnutrition; D69.6 Thrombocytopenia, unspecified; E83.51 Hypocalcemia; E88.09 Other disorders of plasma-protein metabolism, not elsewhere classified; I10 Essential (primary) hypertension; H54.8 Legal blindness, as defined in USA; Z96.1 Presence of intraocular lens; Z68.32 Body mass index [BMI] 32.0-32.9, adult
CPT/HCPCS: 36415; 49083; 71045; 76700; 76942; 80053; 81001; 82140; 83880; 84484; 85025; 85049; 85610; 86850; 86900; 86901; 87081; G0378; P9047

== ENCOUNTER 2024-03-18 04:44 | Inpatient (IN) | payer MEDICAID ==
[~2024-03-18] VITALS: Ht 124.5 cm; Wt 81.8 kg
[~2024-03-18 04:44] MED LIST changes: +FUR20T PO; +FURO1TAB31 PO; +LACT10SO3 PO; +PROP1TAB51 PO; +SPIR25TA PO; +SPIR25TA8 PO
[2024-03-18 07:15] LABS: Urine Bacteria MOD /hpf (None Seen); Urine Blood 1+ /uL (Negative); Urine Clarity Clear (Clear); Urine Color Yellow (Yellow); Urine Mucus FEW (None Seen); Urine Protein, UAD Negative (Negative); Urine Urobilinogen Normal (Negative); Urine WBC 2 /hpf (0 - 5)
[2024-03-18 07:18] LABS: Basophils # (auto) 0 10 ^3/uL (0-0.2); Basophils % (auto) 0.4 % (0.0-2.0); Eosinophils # (auto) 0.1 10 ^3/uL (0-0.8); Eosinophils % (auto) 3.9 % (0.0-7.0); Hematocrit 30.5 % (36.0-46.0); Hemoglobin 10.2 g/dL (12.2-16.2); Lymphocytes # (auto) 0.8 10 ^3/uL (0.4-5.4); Lymphocytes % (auto) 22.1 % (10.0-50.0); Mean Corpuscular Hemoglobin 36.4 pg (28.0-32.0); Mean Corpuscular Hgb Conc. 33.6 g/dL (32.0-36.0); Mean Corpuscular Volume 108.5 fL (80.0-100.0); Monocytes # (auto) 0.4 10 ^3/uL (0-1.3); Monocytes % (auto) 12.1 % (0.0-12.0); Neutrophils # (auto) 2.1 10 ^3/uL (1.6-8.6); Neutrophils % (auto) 61.5 % (37.0-80.0); Nucleated Red Blood Cells % 0.1 %; Red Blood Cells 2.81 10^6/uL (4.0-5.20); Red Cell Distribution Width 16.8 % (11.8-14.3); White Blood Cell 3.4 10^3/uL (4.4-10.8)
[2024-03-18 07:33] LABS: INR 1.84 (0.9-1.15); Partial Thromboplastin Time 36.6 SEC (24.5-34.5); Prothrombin Time 18.6 sec (9.3-11.8)
[2024-03-18 07:39] LABS: Alanine Aminotransferase 19 U/L (7-40); Albumin 2.1 g/dL (3.2-4.8); Alkaline Phosphatase 143 U/L (46-116); Anion Gap 4 (5-15); Aspartate Aminotransferase 35 U/L (13-40); BUN/Creatinine Ratio 12.7 (10.0-20.0); Blood Urea Nitrogen 8 mg/dL (9-23); Calcium 7.7 mg/dL (8.7-10.4); Carbon Dioxide 21 mmol/L (20-30); Chloride 111 mmol/L (98-107); Glucose 89 mg/dL (74-106); Lipase 47 U/L (12-53); Magnesium 1.8 mg/dL (1.6-2.6); Potassium 3.6 mmol/L (3.5-5.1); Sodium 136 mmol/L (136-145)
[2024-03-18 07:40] LABS: Bilirubin, Total 3.2 mg/dL (0.2-1.0); Total Protein 6.8 g/dL (5.7-8.2)
[2024-03-18 09:20] VITALS: PULSE 70; RESP 12; O2SAT 99
[2024-03-18] MEDS ORDERED: ONDANSETRON HCL 4 MG/2 ML VIAL IV PRN (10:30)
[2024-03-18] MEDS ORDERED: DOCUSATE SOD 100 MG CAP PO PRN (10:30)
[2024-03-18] MEDS ORDERED: MORPHINE SULFATE INJ 2 MG/ml SYRG IV PRN ×2 (10:30)
[2024-03-18] MEDS ORDERED: NITROGLYCERIN 0.4 MG SL TAB SL PRN (10:30)
[2024-03-18] MEDS: FUROSEMIDE 20 MG/2 ML VIAL IV ONE (10:55)
[2024-03-18] MEDS: LACTULOSE 20Gm/30ML SOLN PO ONE (10:55)
[2024-03-18] MEDS: LACTULOSE 20Gm/30ML SOLN PO SCH (12:00)
[2024-03-18] MEDS: PIPERACILLIN-TAZOB 3.375GM 100 ML IV SCH (12:05)
[2024-03-18] MEDS ORDERED: PROPRANOLOL HCL PO SCH (14:00)
[2024-03-18] MEDS: PROPRANOLOL HCL 20 MG TAB PO SCH (14:06)
[2024-03-18] MEDS: FUROSEMIDE 20 MG/2 ML VIAL IV SCH (18:49)
[2024-03-18 22:19] LABS: Body Fluid Polymorphonuclear 27 % (0-25); Body Fluid Red Blood Cells 945 CUMM (0-2000); Body Fluid White Blood Cells 40 CUMM (0-200)
[2024-03-18 23:09] VITALS: PULSE 66; RESP 15; O2SAT 100
[2024-03-19] VITALS (12 sets, daily range): BP systolic 92–100; BP diastolic 49–56; PULSE 59–69; RESP 12–18; TEMP 36.3; O2SAT 95–98
[2024-03-19 06:13] LABS: Basophils # (auto) 0 10 ^3/uL (0-0.2); Eosinophils # (auto) 0.1 10 ^3/uL (0-0.8); Monocytes # (auto) 0.3 10 ^3/uL (0-1.3); Red Blood Cells 2.61 10^6/uL (4.0-5.20); White Blood Cell 2.5 10^3/uL (4.4-10.8)
[2024-03-19 06:16] LABS: Basophils % (auto) 0.4 % (0.0-2.0); Eosinophils % (auto) 3.2 % (0.0-7.0); Hematocrit 28.8 % (36.0-46.0); Hemoglobin 9.6 g/dL (12.2-16.2); Lymphocytes # (auto) 0.4 10 ^3/uL (0.4-5.4); Lymphocytes % (auto) 17.4 % (10.0-50.0); Mean Corpuscular Hemoglobin 36.7 pg (28.0-32.0); Mean Corpuscular Hgb Conc. 33.2 g/dL (32.0-36.0); Mean Corpuscular Volume 110.2 fL (80.0-100.0); Monocytes % (auto) 11.7 % (0.0-12.0); Neutrophils # (auto) 1.7 10 ^3/uL (1.6-8.6); Neutrophils % (auto) 67.3 % (37.0-80.0); Nucleated Red Blood Cells % 0.2 %; Red Cell Distribution Width 17.4 % (11.8-14.3)
[2024-03-19 06:30] LABS: Alanine Aminotransferase 15 U/L (7-40); Albumin 1.7 g/dL (3.2-4.8); Alkaline Phosphatase 95 U/L (46-116); Anion Gap 5 (5-15); Aspartate Aminotransferase 30 U/L (13-40); BUN/Creatinine Ratio 12.3 (10.0-20.0); Bilirubin, Total 2.7 mg/dL (0.2-1.0); Blood Urea Nitrogen 8 mg/dL (9-23); Calcium 7.4 mg/dL (8.7-10.4); Carbon Dioxide 22 mmol/L (20-30); Chloride 113 mmol/L (98-107); Glucose 88 mg/dL (74-106); Sodium 140 mmol/L (136-145); Total Protein 5.7 g/dL (5.7-8.2)
[2024-03-19] MEDS: SPIRONOLACTONE 25 MG TAB PO SCH (09:59)
[2024-03-19] MEDS: POTASSIUM CHL 20 Meq TABLET PO ONE (10:27)
[2024-03-19] MEDS: ALBUMIN 25% 100 ML IV SCH (12:24)
[2024-03-20 10:06] LABS: Protein, Body Fluid 0.8 g/dL (.)
== END 2024-03-19 19:08 | disposition home or self-care (01) ==
LOC: ER 04:44 → OVERFLOW 10:25 → WEST WING 23:35
PROVIDERS: ADMIT Internal Medicine Pulmonary Disease; ATTEND Internal Medicine Pulmonary Disease
PROC: 0W9G3ZZ Drainage of Peritoneal Cavity, Percutaneous Approach (ICD-10-PCS; principal; 2024-03-18)
PROC: 30233R1 Transfusion of Nonautologous Platelets into Peripheral Vein, Percutaneous Approach (ICD-10-PCS; 2024-03-19)
DX: K74.60 Unspecified cirrhosis of liver (principal); R18.8 Other ascites; D69.6 Thrombocytopenia, unspecified; E72.20 Disorder of urea cycle metabolism, unspecified; E44.1 Mild protein-calorie malnutrition; Z68.43 Body mass index [BMI] 50.0-59.9, adult; I10 Essential (primary) hypertension; D72.819 Decreased white blood cell count, unspecified; H54.62 Unqualified visual loss, left eye, normal vision right eye; K80.20 Calculus of gallbladder without cholecystitis without obstruction; D64.9 Anemia, unspecified; Z79.899 Other long term (current) drug therapy
CPT/HCPCS: 36415; 49083; 71045; 74176; 76705; 76942; 80053; 81001; 82140; 83605; 83690; 83735; 83986; 85025; 85049; 85610; 85730; 86850; 86900; 86901; 87081; 87205; 89051; 93005; 96365; 96375; 96376; G0378; J2543; P9047

== ENCOUNTER 2024-04-25 14:12 | Inpatient (IN) | payer MEDICAID ==
[~2024-04-25] VITALS: Ht 124.5 cm; Wt 55.3 kg
[~2024-04-25 14:12] MED LIST changes: -CEFD300C2 PO; -FUR20T PO; -FURO1TAB31 PO; -LACT10PA2 PO; -PROP1TAB51 PO; -SPIR25TA8 PO
[2024-04-25 15:25] LABS: Basophils # (auto) 0 10 ^3/uL (0-0.2); Eosinophils # (auto) 0 10 ^3/uL (0-0.8); Eosinophils % (auto) 2.2 % (0.0-7.0); Hemoglobin 10.2 g/dL (12.2-16.2); Lymphocytes # (auto) 0.5 10 ^3/uL (0.4-5.4); Neutrophils # (auto) 1.2 10 ^3/uL (1.6-8.6); Nucleated Red Blood Cells % 0.2 %; White Blood Cell 2.1 10^3/uL (4.4-10.8)
[2024-04-25 15:29] LABS: Basophils % (auto) 0.4 % (0.0-2.0); Hematocrit 30.2 % (36.0-46.0); Lymphocytes % (auto) 24.5 % (10.0-50.0); Monocytes # (auto) 0.2 10 ^3/uL (0-1.3); Neutrophils % (auto) 60.9 % (37.0-80.0); Red Blood Cells 2.77 10^6/uL (4.0-5.20); Red Cell Distribution Width 15.8 % (11.8-14.3)
[2024-04-25 15:50] LABS: Alanine Aminotransferase 21 U/L (7-40); Albumin 2.6 g/dL (3.2-4.8); Alkaline Phosphatase 132 U/L (46-116); Anion Gap 6 (5-15); Aspartate Aminotransferase 45 U/L (13-40); BUN/Creatinine Ratio 13.8 (10.0-20.0); Blood Urea Nitrogen 9 mg/dL (9-23); Calcium 8.4 mg/dL (8.7-10.4); Carbon Dioxide 23 mmol/L (20-30); Chloride 107 mmol/L (98-107); Glucose 86 mg/dL (74-106); Potassium 4.2 mmol/L (3.5-5.1); Sodium 136 mmol/L (136-145)
[2024-04-25 15:51] LABS: Bilirubin, Total 2.9 mg/dL (0.2-1.0); Total Protein 7.1 g/dL (5.7-8.2)
[2024-04-25 15:58] LABS: Platelet Estimate Decreased
[2024-04-25 17:15] LABS: INR 1.79 (0.9-1.15); Partial Thromboplastin Time 36.9 SEC (24.5-34.5); Prothrombin Time 18.2 sec (9.3-11.8)
[2024-04-26] VITALS (10 sets, daily range): BP systolic 95–126; BP diastolic 42–63; PULSE 16–85; RESP 14–18; TEMP 97.1–98.2; O2SAT 97–100
[2024-04-26] MEDS ORDERED: ACETAMINOPHEN 325 MG TAB PO PRN (04:00)
[2024-04-26] MEDS ORDERED: hydrALAZINE HCL 20 MG/ML VL IV PRN (04:00)
[2024-04-26] MEDS ORDERED: HYDROcodone-ACET 5/325MG TAB PO PRN (04:00)
[2024-04-26] MEDS ORDERED: ONDANSETRON HCL 4 MG/2 ML VIAL IV PRN (04:00)
[2024-04-26] MEDS ORDERED: DOCUSATE SOD 100 MG CAP PO PRN (04:00)
[2024-04-26] MEDS ORDERED: NITROGLYCERIN 0.4 MG SL TAB SL PRN (04:30)
[2024-04-26] MEDS ORDERED: MORPHINE SULFATE INJ 2 MG/ml SYRG IV PRN (04:30)
[2024-04-26 06:19] LABS: Hemoglobin 9.9 g/dL (12.2-16.2)
[2024-04-26 06:22] LABS: Alanine Aminotransferase 21 U/L (7-40); Alkaline Phosphatase 112 U/L (46-116); Anion Gap 4 (5-15); BUN/Creatinine Ratio 16.2 (10.0-20.0); Blood Urea Nitrogen 11 mg/dL (9-23); Calcium 8.3 mg/dL (8.7-10.4); Carbon Dioxide 26 mmol/L (20-30); Chloride 108 mmol/L (98-107); Glucose 103 mg/dL (74-106); Sodium 138 mmol/L (136-145)
[2024-04-26 06:23] LABS: Albumin 2.5 g/dL (3.2-4.8); Aspartate Aminotransferase 37 U/L (13-40); Bilirubin, Total 3.1 mg/dL (0.2-1.0); Total Protein 6.8 g/dL (5.7-8.2)
[2024-04-26 06:24] LABS: Hematocrit 28.6 % (36.0-46.0); Mean Corpuscular Hemoglobin 37.3 pg (28.0-32.0); Mean Corpuscular Hgb Conc. 34.6 g/dL (32.0-36.0); Mean Corpuscular Volume 107.9 fL (80.0-100.0); Red Blood Cells 2.65 10^6/uL (4.0-5.20); Red Cell Distribution Width 15.2 % (11.8-14.3)
[2024-04-26] MEDS: LACTULOSE 20Gm/30ML SOLN PO SCH (06:32)
[2024-04-26] MEDS ORDERED: FURO20TA3 PO (06:50)
[2024-04-26 07:10] LABS: White Blood Cell 1.7 10^3/uL (4.4-10.8)
[2024-04-26 07:11] LABS: Band Neutrophils % (manual) 0; Basophils % (manual) 0 (0.0-2.0); Blast Cells 0; Eosinophils % (manual) 0 (0-7); Metamyelocytes % 0; Myelocytes % 0; Promyelocytes % 0; Reactive Lymphocytes 0
[2024-04-26 08:22] LABS: Lymphocytes % (manual) 22 (10.0-50.0); Monocytes % (manual) 2 (0-12); Platelet Estimate Markedly Decreased
[2024-04-26] MEDS: SPIRONOLACTONE 25 MG TAB PO SCH (10:18)
[2024-04-26] MEDS: FAMOTIDINE (10MG/ML) 2ML VL IV SCH (10:58)
[2024-04-26 14:46] LABS: Body Fluid Polymorphonuclear 13 % (0-25); Body Fluid Red Blood Cells 368 CUMM (0-2000); Body Fluid White Blood Cells 60 CUMM (0-200)
[2024-04-26] MEDS: ALBUMIN 25% 50 ML IV ONE (21:32)
[2024-04-27] VITALS (8 sets, daily range): BP systolic 108–116; BP diastolic 49–63; PULSE 69–82; RESP 16–18; TEMP 97.8–98.5; O2SAT 96–100
[2024-04-27 08:15] LABS: Basophils # (auto) 0 10 ^3/uL (0-0.2); Hemoglobin 10.4 g/dL (12.2-16.2); Monocytes # (auto) 0.2 10 ^3/uL (0-1.3)
[2024-04-27 08:20] LABS: Basophils % (auto) 0.3 % (0.0-2.0); Eosinophils # (auto) 0.1 10 ^3/uL (0-0.8); Eosinophils % (auto) 3.4 % (0.0-7.0); Hematocrit 30.7 % (36.0-46.0); Lymphocytes # (auto) 0.4 10 ^3/uL (0.4-5.4); Lymphocytes % (auto) 24.8 % (10.0-50.0); Mean Corpuscular Hemoglobin 36.7 pg (28.0-32.0); Mean Corpuscular Hgb Conc. 33.9 g/dL (32.0-36.0); Mean Corpuscular Volume 108.2 fL (80.0-100.0); Monocytes % (auto) 13.8 % (0.0-12.0); Neutrophils % (auto) 57.7 % (37.0-80.0); Nucleated Red Blood Cells % 0.7 %; Red Blood Cells 2.83 10^6/uL (4.0-5.20); Red Cell Distribution Width 15.2 % (11.8-14.3)
[2024-04-27 08:24] LABS: White Blood Cell 1.7 10^3/uL (4.4-10.8)
[2024-04-27 08:35] LABS: Alanine Aminotransferase 18 U/L (7-40); Albumin 2.6 g/dL (3.2-4.8); Alkaline Phosphatase 110 U/L (46-116); Anion Gap 6 (5-15); Aspartate Aminotransferase 35 U/L (13-40); BUN/Creatinine Ratio 15.1 (10.0-20.0); Blood Urea Nitrogen 11 mg/dL (9-23); Calcium 8.4 mg/dL (8.7-10.4); Carbon Dioxide 24 mmol/L (20-30); Chloride 108 mmol/L (98-107); Glucose 83 mg/dL (74-106); Potassium 4.1 mmol/L (3.5-5.1); Sodium 138 mmol/L (136-145)
[2024-04-27 08:36] LABS: Total Protein 6.8 g/dL (5.7-8.2)
[2024-04-27] MEDS: cefTRIAXone SOD 500 MG VL IV ONE (10:00)
[2024-04-27 10:38] LABS: Platelet Estimate Decreased
[2024-04-27] MEDS: cefTRIAXone 1GM/50ML D5W 50 ML IV SCH (17:00)
[2024-04-28] VITALS (8 sets, daily range): BP systolic 95–115; BP diastolic 46–67; PULSE 60–91; RESP 16–18; TEMP 97.5–99.5; O2SAT 93–100
[2024-04-28 07:32] LABS: Basophils # (auto) 0 10 ^3/uL (0-0.2); Eosinophils # (auto) 0.1 10 ^3/uL (0-0.8); Eosinophils % (auto) 3.4 % (0.0-7.0); Hemoglobin 9.8 g/dL (12.2-16.2); Monocytes # (auto) 0.3 10 ^3/uL (0-1.3)
[2024-04-28 07:36] LABS: Basophils % (auto) 0.3 % (0.0-2.0); Hematocrit 28.7 % (36.0-46.0); Lymphocytes # (auto) 0.5 10 ^3/uL (0.4-5.4); Lymphocytes % (auto) 26.6 % (10.0-50.0); Mean Corpuscular Hemoglobin 36.8 pg (28.0-32.0); Mean Corpuscular Hgb Conc. 34.2 g/dL (32.0-36.0); Mean Corpuscular Volume 107.5 fL (80.0-100.0); Neutrophils # (auto) 1.1 10 ^3/uL (1.6-8.6); Neutrophils % (auto) 54.7 % (37.0-80.0); Nucleated Red Blood Cells % 0.1 %; Red Blood Cells 2.67 10^6/uL (4.0-5.20); Red Cell Distribution Width 15.2 % (11.8-14.3)
[2024-04-28 07:50] LABS: Alanine Aminotransferase 16 U/L (7-40); Alkaline Phosphatase 102 U/L (46-116); Anion Gap 5 (5-15); Blood Urea Nitrogen 10 mg/dL (9-23); Calcium 8.2 mg/dL (8.7-10.4); Carbon Dioxide 25 mmol/L (20-30); Chloride 109 mmol/L (98-107); Glucose 82 mg/dL (74-106); Potassium 4.6 mmol/L (3.5-5.1); Sodium 139 mmol/L (136-145)
[2024-04-28 07:52] LABS: Albumin 2.3 g/dL (3.2-4.8); Aspartate Aminotransferase 28 U/L (13-40); Bilirubin, Total 2.1 mg/dL (0.2-1.0)
[2024-04-28 07:56] LABS: BUN/Creatinine Ratio 12.3 (10.0-20.0)
[2024-04-29 01:00] VITALS: BP 116/59; PULSE 77; RESP 18; TEMP 98.8; O2SAT 98
[2024-04-29 05:00] VITALS: BP 116/59; PULSE 74; RESP 17; TEMP 98.1; O2SAT 96
[2024-04-29 06:12] LABS: Alanine Aminotransferase 16 U/L (7-40); Albumin 2.1 g/dL (3.2-4.8); Alkaline Phosphatase 104 U/L (46-116); Anion Gap 4 (5-15); Aspartate Aminotransferase 29 U/L (13-40); BUN/Creatinine Ratio 16.7 (10.0-20.0); Blood Urea Nitrogen 12 mg/dL (9-23); Calcium 7.9 mg/dL (8.7-10.4); Carbon Dioxide 25 mmol/L (20-30); Chloride 108 mmol/L (98-107); Glucose 74 mg/dL (74-106); Potassium 4.5 mmol/L (3.5-5.1); Sodium 137 mmol/L (136-145)
[2024-04-29 06:13] LABS: Bilirubin, Total 1.9 mg/dL (0.2-1.0); Total Protein 6.1 g/dL (5.7-8.2)
[2024-04-29 06:36] LABS: Hematocrit 28.1 % (36.0-46.0); Hemoglobin 9.7 g/dL (12.2-16.2); Mean Corpuscular Hemoglobin 37.2 pg (28.0-32.0); Mean Corpuscular Hgb Conc. 34.4 g/dL (32.0-36.0); Mean Corpuscular Volume 107.9 fL (80.0-100.0)
[2024-04-29 06:39] LABS: White Blood Cell 1.7 10^3/uL (4.4-10.8)
[2024-04-29 06:42] LABS: Band Neutrophils % (manual) 0; Basophils % (manual) 0 (0.0-2.0); Blast Cells 0; Metamyelocytes % 0; Myelocytes % 0; Promyelocytes % 0; Reactive Lymphocytes 0
[2024-04-29 08:00] VITALS: PULSE 79; PULSE 81; RESP 17; O2SAT 98
[2024-04-29 08:28] LABS: Eosinophils % (manual) 2 (0-7); Lymphocytes % (manual) 21 (10.0-50.0); Monocytes % (manual) 5 (0-12); Smudge Cells 1 /100 WBC
[2024-04-29 08:36] LABS: Platelet Estimate Markedly Decreased
[2024-04-29 09:00] VITALS: BP 110/56; PULSE 79; RESP 17; TEMP 98; O2SAT 98
[2024-04-29 14:00] VITALS: TEMP 36.7
== END 2024-04-29 14:45 | disposition home or self-care (01) ==
LOC: ER 14:12 → TELE 04-26 04:28 → TELE-EAST 04-26 06:05
PROVIDERS: ADMIT Internal Medicine; ATTEND Emergency Medicine
PROC: 0W9G3ZZ Drainage of Peritoneal Cavity, Percutaneous Approach (ICD-10-PCS; principal; 2024-04-26)
DX: K74.60 Unspecified cirrhosis of liver (principal); G93.41 Metabolic encephalopathy; D61.818 Other pancytopenia; D68.9 Coagulation defect, unspecified; R18.8 Other ascites; K76.6 Portal hypertension; D69.6 Thrombocytopenia, unspecified; K80.20 Calculus of gallbladder without cholecystitis without obstruction; K75.81 Nonalcoholic steatohepatitis (NASH); Z88.8 Allergy status to other drugs, medicaments and biological substances; Z79.899 Other long term (current) drug therapy
CPT/HCPCS: 36415; 49083; 71045; 74176; 76705; 76942; 80053; 82140; 83615; 83880; 83986; 85007; 85025; 85027; 85610; 85730; 87205; 89051; G0378; J0696; J2405; J3490

== ENCOUNTER 2024-09-26 04:33 | Emergency (ER) | payer MEDICAID ==
[~2024-09-26] VITALS: Ht 149.9 cm; Wt 60.5 kg
[~2024-09-26 04:33] MED LIST changes: +FURO20TA3 PO; -PROP60CA34 PO
[2024-09-26 04:49] VITALS: BP 113/67; PULSE 85; RESP 16; O2SAT 97
[2024-09-26] MEDS ORDERED: SPIR100T4 PO (04:58)
--- NOTE | 2024-09-26 05:00 | ED.PDOC ---
GI ASSESSMENT HPI Comments 70 year old female presents to the ED with a chief complaint of abdominal distention. Patient's son states the patient's last paracentesis was about 2 months ago, 5 L were drained, BP dropped to the 60s. Son also states the patient has not been able to see specialist due to insurance issues. Patient denies abdominal pain, shortness of breath, dizziness, chest pain, nausea vomiting. Patient's only complaint is abdominal distention. PMHx liver cirrhosis. No other symptoms or modifying factors present at this time. Chief Complaint: Abdominal Pain Time Seen by MD: 04:46 Primary Care Provider: RACHEL SOUZA Reviewed Notes: Medications, Allergies Allergies: Coded Allergies: Vitamin K (Verified Allergy, Severe, 11/13/23) Ketamine (Verified Allergy, Unknown, 02/21/24) Home Meds Active Scripts Spironolactone (Spironolactone) 100 Mg Tab, 1 TAB PO DAILY for 60 Days, #60 TAB 11 Refills Prov:DELBERT ROBLES MD 09/26/24 Spironolactone (Aldactone) 25 Mg Tab, 1 TAB PO DAILY, #30 TAB 5 Refills Prov:SUBHASH BENEDICT MD 01/02/24 Reported Medications Furosemide (Furosemide) 20 Mg Tab, 20 MG PO DAILY for 30 Days, MG 04/26/24 Lactulose (Lactulose) 10 Gm/15 Ml Shreya, 15 ML PO TID PRN for LIVER 02/19/24 Information Source: Patient, Relative (Child) Mode of Arrival: Ambulatory Timing: Days Duration: Since onset Prehospital treatment: None Quality: None Severity: Moderate Recent: None Recent Hx of: Liver Disease Pain Location: None Modifying Factors: Nothing Past Medical History PAST MEDICAL HISTORY: HTN, Liver Surgical History: Denies all surgeries PCB DESIGN ENGINEER History: No Pertinent PCB DESIGN ENGINEER History Family History Family History: Reviewed,noncontributory to illness, No family hx of Cancer, No family hx of DM, No family hx of Heart andres, No family hx of HTN, No family hx ofKidney andres, No family hx of Liver andres, No family hx of Lung andres, No family hx of Stroke Social History Smoker: Non-Smoker Alcohol: Denies ETOH Use Drugs: Denies Drug Use Lives In: Home Constitutional: denies: chills, diaphoresis, fatigue, fever, malaise, sweats, weakness, others EENTM: denies: blurred vision, double vision, ear bleeding, ear discharge, ear drainage, ear pain, ear ringing, eye pain, eye redness, hearing loss, mouth pain, mouth swelling, nasal discharge, nose bleeding, nose congestion, nose pain, photophobia, tearing, throat pain, throat swelling, voice changes, others Respiratory: denies: cough, hemoptysis, orthopnea, SOB at rest, shortness of breath, SOB with excertion, stridor, wheezing, others Cardiovascular: denies: chest pain, dizzy spells, diaphoresis, Dyspnea on exertion, edema, irregular heart beat, left arm pain, lightheadedness, palpitations, PND, syncope, others Gastrointestinal: reports: abdomen distended; denies: abdominal pain, blood streaked bowels, constipated, diarrhea, dysphagia, difficulty swallowing, hematemesis, melena, nausea, poor appetite, poor fluid intake, rectal bleeding, rectal pain, vomiting, others Genitourinary: denies: abnormal vagina bleeding, burning, dyspareunia, dysuria, flank pain, frequency, hematuria, incontinence, pain, , vagina discharge, urgency, others Neurological: denies: dizziness, fainting, headache, left sided numbness, left sided weakness, numbness, paresthesia, pre-existing deficit, right sided numbness, right sided weakness, seizure, speech problems, tingling, tremors, weakness, others Musculoskeletal: denies: back pain, gout, joint pain, joint swelling, muscle pain, muscle stiffness, neck pain, others Integumetry: denies: bruises, change in color, change in hair/nails, dryness, laceration, lesions, lumps, rash, wounds, others Allergic/Immunocompromised: denies: Difficulty Healing, Frequent Infections, Hives, Itching, others Hematologic/Lymphatic: denies: anemia, blood clots, easy bleeding, easy bruising, swollen glands, others Endocrine: denies: excessive hunger, excessive sweating, excessive thirst, excessive urination, flushing, intolerance to cold, intolerance to heat, unexplained weight gain, unexplained weight loss, others Psychiatric: denies: anxiety, bipolar disorder, depression, hopeless, panic disorder, schizophrenia, sleepless, suicidal, others All Other Systems: Reviewed and Negative Physical Exam General Appearance: No Apparent Distress, Normal HEENT: Normal ENT Inspection, Pharynx Normal, TMs Normal Neck: Full Range of Motion, Non-Tender, Normal, Normal Inspection Respiratory: Chest Non-Tender, Lungs Clear, No Accessory Muscle Use, No Respiratory Distress, Normal Breath Sounds Cardiovascular: No Edema, No JVD, No Murmur, No Gallop, Normal Peripheral Pulses, Regular Rate/Rhythm Breast Exam: Deferred Gastrointestinal: No Organomegaly, Non Tender, No Pulsatile Mass, Normal Bowel Sounds, Soft Genitalia: Deferred Pelvic: Deferred Rectal: Deferred Extremities: No calf tenderness, Normal capillary refill, Normal inspection, Normal range of motion, Non-tender, No pedal edema Musculoskeletal : Apperance: Normal Neurologic: Alert, broom bundler II-XII nml as Tested, No Motor Deficits, Normal Affect, Normal Mood, No Sensory Deficits Cerebellar Function: Normal Reflexes: Normal Skin: Dry, Normal Color, Warm Lymphatic: No Adenopathy Was a procedure done? Was a procedure done?: No GI differential Dx Differential Diagnosis: Bowel Obstruction, Gastritis/PUD, Gastroenteritis, Inflammatory BD, Bacterial, Mass, Other Other Differential Diagnosis Peritonitis, volvulus, ascites X-Ray, Labs, Meds, VS Vital Signs Date Time Temp Pulse Resp B/P (MAP) Pulse Ox O2 Delivery O2 Flow Rate FiO2 09/26/24 04:49 98.0 85 16 113/67 (82) 97 Time of 1ST Reevaluation: 05:16 Reevaluation 1ST: Improved Patient Education/Counseling: Diagnosis, Treatment, Prognosis Family Education/Counseling: Diagnosis, Treatment, Prognosis Departure 1 Departure Time of Disposition: 05:10 Impression: Primary Impression: Abdominal ascites Additional Impression: Cirrhosis of liver Disposition: HOME / SELF CARE / HOMELESS Condition: Stable e-Prescriptions Spironolactone (Spironolactone) 100 Mg Tab 1 TAB PO DAILY for 60 Days, #60 TAB 11 Refills Prov: DELBERT ROBLES MD 09/26/24 Discharged With: Self, Relative Critical Care Note Critical Care Time?: No Stability Stability form required: No I personally scribed for DELBERT ROBLES MD ([email or web address]) on 09/26/24 at 05:00. Electronically submitted by Rosario Yee ([email or web address]). DELBERT ROBLES MD Sep 26, 2024 05:00
== END 2024-09-26 06:00 | disposition home or self-care (01) ==
LOC: ER 04:33
DX: K74.60 Unspecified cirrhosis of liver (principal); R18.8 Other ascites; I10 Essential (primary) hypertension; Z79.899 Other long term (current) drug therapy; Z88.8 Allergy status to other drugs, medicaments and biological substances; Z91.09 Other allergy status, other than to drugs and biological substances

== ENCOUNTER 2024-09-26 12:33 | Emergency (ER) | payer MEDICAID ==
[~2024-09-26] VITALS: Ht 124.5 cm; Wt 61.3 kg
[~2024-09-26 12:33] MED LIST changes: +SPIR100T4 PO
--- NOTE | 2024-09-26 13:08 | ED.PDOC ---
GI ASSESSMENT HPI Comments 69Y F with PMHx HTN and liver disease presents to ED for chief complaint LUQ pain with distension x4days. Pt states she needs paracentesis procedure performed. Current pain level 6/10. Time Seen by MD: 12:50 Primary Care Provider: RACHEL SOUZA Reviewed Notes: Nurses Notes, Medications, Allergies Allergies: Coded Allergies: Vitamin K (Verified Allergy, Severe, 11/13/23) Ketamine (Verified Allergy, Unknown, 02/21/24) Home Meds Active Scripts Spironolactone (Spironolactone) 100 Mg Tab, 1 TAB PO DAILY for 60 Days, #60 TAB 11 Refills Prov:DELBERT ROBLES MD 09/26/24 Spironolactone (Aldactone) 25 Mg Tab, 1 TAB PO DAILY, #30 TAB 5 Refills Prov:SUBHASH BENEDICT MD 01/02/24 Reported Medications Furosemide (Furosemide) 20 Mg Tab, 20 MG PO DAILY for 30 Days, MG 04/26/24 Lactulose (Lactulose) 10 Gm/15 Ml Shreya, 15 ML PO TID PRN for LIVER 02/19/24 Information Source: Patient Mode of Arrival: Ambulatory Timing: Days Duration: Since onset Quality: Aching Vomitus: None Stool: Normal Severity: Moderate Recent: None Recent Hx of: Liver Disease Pain Location: LUQ Modifying Factors: Nothing Associated sign and symptoms: Abdominal Pain Past Medical History PAST MEDICAL HISTORY: HTN, Liver Surgical History: Denies all surgeries BARREL BANDER History: No Pertinent BARREL BANDER History Family History Family History: Reviewed,noncontributory to illness, No family hx of Cancer, No family hx of DM, No family hx of Heart andres, No family hx of HTN, No family hx ofKidney andres, No family hx of Liver andres, No family hx of Lung andres, No family hx of Stroke Social History Smoker: Non-Smoker Alcohol: Denies ETOH Use Drugs: Denies Drug Use Lives In: Home Constitutional: denies: chills, diaphoresis, fatigue, fever, malaise, sweats, weakness, others EENTM: denies: blurred vision, double vision, ear bleeding, ear discharge, ear drainage, ear pain, ear ringing, eye pain, eye redness, hearing loss, mouth pain, mouth swelling, nasal discharge, nose bleeding, nose congestion, nose pain, photophobia, tearing, throat pain, throat swelling, voice changes, others Respiratory: denies: cough, hemoptysis, orthopnea, SOB at rest, shortness of breath, SOB with excertion, stridor, wheezing, others Cardiovascular: denies: chest pain, dizzy spells, diaphoresis, Dyspnea on exertion, edema, irregular heart beat, left arm pain, lightheadedness, palpitations, PND, syncope, others Gastrointestinal: reports: abdomen distended, abdominal pain; denies: blood streaked bowels, constipated, diarrhea, dysphagia, difficulty swallowing, hematemesis, melena, nausea, poor appetite, poor fluid intake, rectal bleeding, rectal pain, vomiting, others Genitourinary: denies: abnormal vagina bleeding, burning, dyspareunia, dysuria, flank pain, frequency, hematuria, incontinence, pain, , vagina discharge, urgency, others Neurological: denies: dizziness, fainting, headache, left sided numbness, left sided weakness, numbness, paresthesia, pre-existing deficit, right sided numbness, right sided weakness, seizure, speech problems, tingling, tremors, weakness, others Musculoskeletal: denies: back pain, gout, joint pain, joint swelling, muscle pain, muscle stiffness, neck pain, others Integumetry: denies: bruises, change in color, change in hair/nails, dryness, laceration, lesions, lumps, rash, wounds, others Allergic/Immunocompromised: denies: Difficulty Healing, Frequent Infections, Hives, Itching, others Hematologic/Lymphatic: denies: anemia, blood clots, easy bleeding, easy bruising, swollen glands, others Endocrine: denies: excessive hunger, excessive sweating, excessive thirst, excessive urination, flushing, intolerance to cold, intolerance to heat, unexplained weight gain, unexplained weight loss, others Psychiatric: denies: anxiety, bipolar disorder, depression, hopeless, panic disorder, schizophrenia, sleepless, suicidal, others All Other Systems: Reviewed and Negative Physical Exam General Appearance: No Apparent Distress, Normal HEENT: Normal ENT Inspection, Pharynx Normal, TMs Normal Neck: Full Range of Motion, Non-Tender, Normal, Normal Inspection Respiratory: Chest Non-Tender, Lungs Clear, No Accessory Muscle Use, No Respiratory Distress, Normal Breath Sounds Cardiovascular: No Edema, No JVD, No Murmur, No Gallop, Normal Peripheral Pulses, Regular Rate/Rhythm Breast Exam: Deferred Gastrointestinal: Distended, LUQ, Tenderness Genitalia: Deferred Pelvic: Deferred Rectal: Deferred Extremities: No calf tenderness, Normal capillary refill, Normal inspection, Normal range of motion, Non-tender, No pedal edema Musculoskeletal : Apperance: Normal Neurologic: Alert, tool room lathe operator II-XII nml as Tested, No Motor Deficits, Normal Affect, Normal Mood, No Sensory Deficits Cerebellar Function: NOT DONE Reflexes: NOT DONE Skin: Dry, Normal Color, Warm Lymphatic: No Adenopathy Was a procedure done? Was a procedure done?: No GI differential Dx Differential Diagnosis: Appendicitis, Gastritis/PUD, Gastroenteritis, Inflammatory BD, Electrolyte Imbalance, Hypovolemia X-Ray, Labs, Meds, VS Vital Signs Date Time Temp Pulse Resp B/P (MAP) Pulse Ox O2 Delivery O2 Flow Rate FiO2 09/26/24 13:43 86 16 97 Room Air 09/26/24 13:43 98.1 86 17 151/65 (93) 97 98.1 09/26/24 13:41 98.1 09/26/24 12:34 97.7 89 20 134/64 (87) 95 Lab Test 09/26/24 13:19 Range/Units White Blood Count 3.3 L 4.4-10.8 10^3/uL Red Blood Count 3.11 L 4.0-5.20 10^6/uL Hemoglobin 10.8 L 12.2-16.2 g/dL Hematocrit 31.9 L 36.0-46.0 % Mean Corpuscular Volume 102.6 H 80.0-100.0 fL Mean Corpuscular Hemoglobin 34.8 H 28.0-32.0 pg Mean Corpuscular Hemoglobin Concent 33.9 32.0-36.0 g/dL Red Cell Distribution Width 17.0 H 11.8-14.3 % Platelet Count 43 L 140-450 10^3/uL Mean Platelet Volume 10.4 6.9-10.8 fL Neutrophils (%) (Auto) 73.7 37.0-80.0 % Lymphocytes (%) (Auto) 10.0 10.0-50.0 % Monocytes (%) (Auto) 14.6 H 0.0-12.0 % Eosinophils (%) (Auto) 1.6 0.0-7.0 % Basophils (%) (Auto) 0.1 0.0-2.0 % Neutrophils # (Auto) 2.4 1.6-8.6 10 ^3/uL Lymphocytes # (Auto) 0.3 L 0.4-5.4 10 ^3/uL Monocytes # (Auto) 0.5 0-1.3 10 ^3/uL Eosinophils # (Auto) 0.1 0-0.8 10 ^3/uL Basophils # (Auto) 0 0-0.2 10 ^3/uL Nucleated Red Blood Cells 0.0 % Platelet Estimate Pending Sodium Level 135 L 136-145 mmol/L Potassium Level 5.3 H 3.5-5.1 mmol/L Chloride Level 107 98-107 mmol/L Carbon Dioxide Level 25 20-31 mmol/L Anion Gap 3 L 5-15 Blood Urea Nitrogen 12 9-23 mg/dL Creatinine 0.75 0.550-1.02 mg/dL Glomerular Filtration Rate Calc 87 >90 mL/min BUN/Creatinine Ratio 16.0 10.0-20.0 Serum Glucose 90 74-106 mg/dL Calcium Level 8.8 8.7-10.4 mg/dL Total Bilirubin 3.4 H 0.2-1.0 mg/dL Aspartate Amino Transferase (AST) 58 H 13-40 U/L Alanine Aminotransferase (ALT) 35 7-40 U/L Alkaline Phosphatase 124 H 46-116 U/L Total Protein 6.8 5.7-8.2 g/dL Albumin 2.5 L 3.2-4.8 g/dL Current Medications Medications (Trade) Dose Ordered Sig/Luis A Route Start Time Stop Time Status Last Admin Acetaminophen (Tylenol Tablet) 650 mg ONCE ONCE PO 09/26/24 13:00 09/26/24 13:01 DC 09/26/24 13:[address] [address] Ph: [phone] DIAGNOSTIC IMAGING Diagnostic Imaging Report : [id number] Signed PATIENT: RODERICK PRATTACCT: [id number] UNIT: [id number] : 1955 LOC: ER ROOM / BED: / AGE / SEX: 69 / F ADM STATUS: REG ER SERVICE 1251 ORDERING PHYSICIAN: NATE GILMORE MD PROCEDURE(s): ABPLIV - CT AB PEL WITH IV CON ONLY REASON: abdominal pain, distended ORDER NUMBER(s): [id number], ACCESSION NUMBER(s): [id number] Exam: CT CT AB PEL WITH IV CON ONLY History: abdominal pain, distended Comparison Study: 03/18/2024 TECHNIQUE: A digital pile driving superintendent image was obtained. During the uneventful, intraven ous administration of contrast material, multislice data acquisition was obtained through the abdomen and pelvis. The data set was subsequently reconstructed into axial images. Images reviewed on a wrist examination is an examination of axial and multiplanar reformations using a variety of window levels and settings. RADIATION DOSE: DLP 833.34 mGy.cm; CTDI vol 16.29 mGy. Findings: Lungs: The lung bases are clear. Heart: The visualized heart is unremarkable. No cardiomegaly or pericardial effusion. Liver: Hepatic atrophy with cirrhotic morphology. Gallbladder: Cholelithiasis without evidence of acute cholecystitis. Spleen: Unremarkable Pancreas: Unremarkable Adrenals: Unremarkable Kidneys: Unremarkable GI tract: Unremarkable : Unremarkable. Vasculature: Gastroesophageal varices. Lymphadenopathy: Absent Peritoneum: Marked volume ascites Musculoskeletal: Mild multilevel degenerative changes of the thoracolumbar spine. Soft tissues: Moderate to marked anasarca. Impression: 1. No acute abdominopelvic abnormalities. 2. Hepatic cirrhosis with sequela of portal hypertension. 3. Marked volume ascites and moderate to marked anasarca. 4. Cholelithiasis without evidence of acute cholecystitis. ATED BY: CARMEN PATEL DO DICTATED DATE/TIME: 09/26/24 1639 SIGNED BY: CARMEN PATEL DO SIGNED DATE/TIME: 09/26/24 1639 CC: Time of 1ST Reevaluation: 13:20 Reevaluation 1ST: Unchanged Patient Education/Counseling: Diagnosis, Treatment Family Education/Counseling: No Family Present Departure 1 Departure Time of Disposition: 16:53 (Patient presented with abdominal pain that was concerning for possible appendicits, gastritis, cholecystitis, colitis, gastroenteritis, sbo, or orther possible surgical emergency. Data: 1. I ordered and reviewed the result of at least 3 labs including a CBC, BMP, and Urinalysis. 2. I independently interpreted the following tests: CT Abdoment and Pelvis is concerning for worsening ascites .Risk:This patient has a high risk of morbidity due to further diagnostic testing or treatment and may suffer from an acute abd ominal process disorder. Workup reveals intractable abdominal pain and worsening ascites and patient should be admitted for further workup. and possible expert consultation. ) Impression: Primary Impression: Intractable abdominal pain Additional Impressions: Ascites Qualified Codes: R18.8 - Other ascites Blindness Qualified Codes: H54.3 - Unqualified visual loss, both eyes Cholelithiasis Qualified Codes: K80.20 - Calculus of gallbladder without cholecystitis without obstruction Disposition: ADMITTED INPATIENT Admit to: Med Surg Condition: Serious Critical Care Note Critical Care Time?: Yes Critical care comment: Intractable abdominal pain Authorized and Performed by: Nate Gilmore MD Total critical care time: Approximately 36 minutes Due to a high probability of clinically significant, life threatening deterioration, the patient required my highest level of preparedness to intervene emergently and I personally spent this critical care time directly and personally managing the patient. This critical care time included obtaining a history; examining the patient; pulse oximetry; ordering and review of studies; arranging urgent treatment with development of a management plan; evaluation of patient's response to treatment; frequent reassessment; and, discussions with other providers. This critical care time was performed to assess and manage the high probability of imminent, life-threatening deterioration that could result in multi-organ failure. It was exclusive of separately billable procedures and treating other patients and teaching time. Please see my other sections and the rest of the note for further information on patient assessment and treatment. Stability Stability form required: No Heart Score Heart Score: Heart Score Response (Comments) Value History N/A 0 EKG N/A 0 Age N/A 0 Risk Factors N/A 0 Troponin N/A 0 Total 0 I personally scribed for NATE GILMORE MD ([email or web address]) on 09/26/24 at 13:08. Electronically submitted by Ave Monson ([email or web address]). I personally scribed for NATE GILMORE MD ([email or web address]) on 09/26/24 at 16:51. Electronically submitted by Ave Monson ([email or web address]). NATE GILMORE MD Sep 26, 2024 13:08
[2024-09-26 13:35] LABS: Basophils # (auto) 0 10 ^3/uL (0-0.2); Basophils % (auto) 0.1 % (0.0-2.0); Eosinophils # (auto) 0.1 10 ^3/uL (0-0.8); Eosinophils % (auto) 1.6 % (0.0-7.0); Hematocrit 31.9 % (36.0-46.0); Hemoglobin 10.8 g/dL (12.2-16.2); Lymphocytes # (auto) 0.3 10 ^3/uL (0.4-5.4); Mean Corpuscular Hemoglobin 34.8 pg (28.0-32.0); Mean Corpuscular Hgb Conc. 33.9 g/dL (32.0-36.0); Mean Corpuscular Volume 102.6 fL (80.0-100.0); Monocytes # (auto) 0.5 10 ^3/uL (0-1.3); Monocytes % (auto) 14.6 % (0.0-12.0); Neutrophils # (auto) 2.4 10 ^3/uL (1.6-8.6); Neutrophils % (auto) 73.7 % (37.0-80.0); Platelet Count (auto) 43 10^3/uL (140-450); Red Blood Cells 3.11 10^6/uL (4.0-5.20); White Blood Cell 3.3 10^3/uL (4.4-10.8)
[2024-09-26] MEDS: ACETAMINOPHEN 325 MG TAB PO ONE (13:41)
[2024-09-26 13:43] VITALS: BP 151/65; PULSE 86; RESP 16; TEMP 98.1; O2SAT 97
[2024-09-26 13:50] LABS: Alanine Aminotransferase 35 U/L (7-40); Anion Gap 3 (5-15); Blood Urea Nitrogen 12 mg/dL (9-23); Calcium 8.8 mg/dL (8.7-10.4); Carbon Dioxide 25 mmol/L (20-31); Glucose 90 mg/dL (74-106)
[2024-09-26 13:51] LABS: Total Protein 6.8 g/dL (5.7-8.2)
[2024-09-26 13:58] LABS: Albumin 2.5 g/dL (3.2-4.8); Alkaline Phosphatase 124 U/L (46-116); Aspartate Aminotransferase 58 U/L (13-40); Bilirubin, Total 3.4 mg/dL (0.2-1.0); Chloride 107 mmol/L (98-107); Potassium 5.3 mmol/L (3.5-5.1); Sodium 135 mmol/L (136-145)
[2024-09-26] MEDS ORDERED: IOHEXOL 300 MG/ML 100ML BOTTLE IJ ONE (14:25)
--- NOTE | 2024-09-26 16:41 | DVH ---
Exam: CT CT AB PEL WITH IV CON ONLY History: abdominal pain, distended Comparison Study: 03/18/2024 TECHNIQUE: A digital clinical coordinator image was obtained. During the uneventful, intravenous administration of c ontrast material, multislice data acquisition was obtained through the abdomen and pelvis. The data s et was subsequently reconstructed into axial images. Images reviewed on a wrist examination is an exa mination of axial and multiplanar reformations using a variety of window levels and settings. RADIATION DOSE: DLP 833.34 mGy.cm; CTDI vol 16.29 mGy. Findings: Lungs: The lung bases are clear. Heart: The visualized heart is unremarkable. No cardiomegaly or pericardial effusion. Liver: Hepatic atrophy with cirrhotic morphology. Gallbladder: Cholelithiasis without evidence of acute cholecystitis. Spleen: Unremarkable Pancreas: Unremarkable Adrenals: Unremarkable Kidneys: Unremarkable GI tract: Unremarkable : Unremarkable. Vasculature: Gastroesophageal varices. Lymphadenopathy: Absent Peritoneum: Marked volume ascites Musculoskeletal: Mild multilevel degenerative changes of the thoracolumbar spine. Soft tissues: Moderate to marked anasarca. Impression: 1. No acute abdominopelvic abnormalities. 2. Hepatic cirrhosis with sequela of portal hypertension. 3. Marked volume ascites and moderate to marked anasarca. 4. Cholelithiasis without evidence of acute cholecystitis.
[2024-09-26] MEDS ORDERED: MORPHINE SULFATE 4 MG/ML SYR/VIAL IV ONE (17:00)
[2024-09-26] MEDS ORDERED: ONDANSETRON HCL 4 MG/2 ML VIAL IV ONE (17:00)
[2024-09-26 17:38] LABS: Macrocytosis Slight
[2024-09-26 17:39] LABS: Platelet Estimate Decreased
== END 2024-09-26 19:30 | disposition left against medical advice (07) ==
LOC: ER 12:33
DX: K80.20 Calculus of gallbladder without cholecystitis without obstruction (principal); R18.8 Other ascites; K74.60 Unspecified cirrhosis of liver; I10 Essential (primary) hypertension; Z79.899 Other long term (current) drug therapy
CPT/HCPCS: 36415; 74177; 80053; 85025; 99285; Q9967

== ENCOUNTER → 2024-10-04 | Outpatient (CLI) | payer MEDICAID ==
--- NOTE | 2024-10-04 13:22 | DVH ---
US PARACENTESIS, HISTORY: OTHER ASCITES PROCEDURE: Informed consent was obtained. The patient was placed in supine position. A limited locali zation ultrasound of the abdomen was obtained, and the skin site over the largest pocket of fluid was marked and entry site was prepped with chlorhexidine which was allowed to dry and draped in the usua l sterile fashion. Time out was performed. Following administration of 1% lidocaine local anesthetic, a 5 Arabic centesis needle catheter was percutaneously inserted into the peritoneal collection until fluid was aspirated. The catheter was advanced into the fluid collection and the needle removed. [place] 6500 cc of fluid was aspirated and specimen sent for appropriate cultures/cytology/cultures and cy tology. The catheter was then removed and a sterile dressing applied. No immediate complication was identified. FINDINGS: Limited ultrasound imaging demonstrates moderate ascites. Aspirated fluid was clear and ser ous. IMPRESSION: US-guided paracentesis with 6.5L removed.
[2024-10-04 15:29] LABS: Body Fluid White Blood Cells 147 CUMM (0-200)
[2024-10-04 15:30] LABS: Body Fluid Polymorphonuclear 60 % (0-25); Body Fluid Red Blood Cells 20 CUMM (0-2000)
[2024-10-06 06:05] LABS: Protein, Body Fluid 0.7 g/dL (.)
== END | disposition home or self-care (01) ==
LOC: XYW 11:59
DX: R18.8 Other ascites (principal); K72.90 Hepatic failure, unspecified without coma; K74.60 Unspecified cirrhosis of liver
CPT/HCPCS: 49083; 83986; 87205; 88104; 88305; 88342; 89051; C1729; 76942

== ENCOUNTER → 2024-11-13 | Outpatient (CLI) | payer MEDICAID ==
--- NOTE | 2024-11-13 11:03 | DVH ---
US PARACENTESIS, HISTORY: OTHER ASCITES PROCEDURE: Informed consent was obtained. The patient was placed in supine position. A limited locali zation ultrasound of the abdomen was obtained, and the skin site over the largest pocket of fluid was marked and entry site was prepped with chlorhexidine which was allowed to dry and draped in the usua l sterile fashion. Time out was performed. Following administration of 1% lidocaine local anesthetic, a 5 Georgian centesis needle catheter was percutaneously inserted into the peritoneal collection until fluid was aspirated. The catheter was advanced into the fluid collection and the needle removed. [place] 7850 cc of fluid was aspirated . The catheter was then removed and a sterile dressing applied. No immediate complication was identified. FINDINGS: Limited ultrasound imaging demonstrates moderate ascites. Aspirated fluid was clear and ser ous. IMPRESSION: US-guided paracentesis with 7.9 L removed.
--- NOTE | 2024-11-13 11:51 | DVH ---
ULTRASOUND ABDOMEN limited, 4 QUADRANTS INDICATION: OTHER ASCITES Evaluate for ascites. TECHNIQUE: The four quadrants of the abdomen were scanned in fiore-scale to assess for the presence of ascites. N o solid organ assessment was performed. FINDINGS/IMPRESSIONS: Moderate volume ascites.
== END | disposition home or self-care (01) ==
LOC: US 09:00
DX: R18.8 Other ascites (principal); K72.90 Hepatic failure, unspecified without coma; K74.60 Unspecified cirrhosis of liver
CPT/HCPCS: 49083; 76705; 76942; C1729

== ENCOUNTER → 2024-12-11 | Outpatient (CLI) | payer MEDICAID ==
--- NOTE | 2024-12-11 10:20 | DVH ---
PROCEDURE: ULTRASOUND GUIDED PARACENTESIS HISTORY: 69 Female requiring paracentesis. TECHNIQUE: The risks and benefits of the procedure including but not limited to bleeding, infection and injury t o abdominal organs were explained to the patient and written informed consent was obtained. Optimal site for puncture was determined using ultrasound and the area sterilized and draped. Using a 5 Hebrew Divvy[place]owneh catheter, paracentesis was performed in the right abdomen. Approximately 7.4 liters of clear yellow fluid was removed. The patient tolerated the procedure well. There were no immedia te complications. IMPRESSION: 1. Ultrasound-guided paracentesis with no immediate complications.
== END | disposition home or self-care (01) ==
LOC: XYW 08:11
DX: K74.69 Other cirrhosis of liver (principal); Z79.899 Other long term (current) drug therapy; Z98.891 History of uterine scar from previous surgery; Z87.891 Personal history of nicotine dependence; Z80.9 Family history of malignant neoplasm, unspecified
CPT/HCPCS: 49083; C1729; 76705; 76942

== ENCOUNTER 2025-01-09 16:11 | Inpatient (IN) | payer MEDICAID ==
[~2025-01-09] VITALS: Ht 124.5 cm; Wt 70.1 kg
--- NOTE | 2025-01-09 16:37 | ED.PDOC ---
SOB-HPI HPI Comments 70y F who presents to the ED for chief complaint of shortness of breath. Pt presents with son who states pt has history of liver cirrhosis and states pt has had severe abdominal distention with associated shortness of breath for the past 2 days. Pt son states pt normally gets paracentesis 1x monthly and states they were waiting for referral from [place] to see a specialist and states they could not wait any longer due to her worsening symptoms. Patient was admitted here in July 2024 for severe ascites and underwent paracentesis. Pt has since had paracentesis 2x as an outpatient. Pt states she is complaint with her Lasix, spironolactone, and lactulose. Pt in the ED, has noted abdominal distention but otherwise denies abdominal pain, nausea, vomiting, fever, cough, chills, dysuria, headache, dizziness, chest pain, or any associated symptoms. Pt has noted heart rate of 106 but otherwise has stable vitals with BP of 138/77, RR 18, temp of 98.1 F with 02 sat of 99% on room air. Pt otherwise denies any other symptoms at this time. 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 [employer] History: No Pertinent [employer] History Family History Family History: Reviewed,noncontributory to illness Social History Smoker: Non-Smoker Alcohol: Denies ETOH Use Drugs: Denies Drug Use Lives In: Home Constitutional: denies: chills, diaphoresis, fatigue, fever, malaise, sweats, weakness, others EENTM: denies: blurred vision, double vision, ear bleeding, ear discharge, ear drainage, ear pain, ear ringing, eye pain, eye redness, hearing loss, mouth pain, mouth swelling, nasal discharge, nose bleeding, nose congestion, nose pain, photophobia, tearing, throat pain, throat swelling, voice changes, others Respiratory: reports: shortness of breath; denies: cough, hemoptysis, orthopnea, SOB at rest, SOB with excertion, stridor, wheezing, others Cardiovascular: denies: chest pain, dizzy spells, diaphoresis, Dyspnea on exertion, edema, irregular heart beat, left arm pain, lightheadedness, palpitations, PND, syncope, others Gastrointestinal: reports: abdomen distended; denies: abdominal pain, blood streaked bowels, constipated, diarrhea, dysphagia, difficulty swallowing, hematemesis, melena, nausea, poor appetite, poor fluid intake, rectal bleeding, rectal pain, vomiting, others Genitourinary: denies: abnormal vagina bleeding, burning, dyspareunia, dysuria, flank pain, frequency, hematuria, incontinence, pain, , vagina discharge, urgency, others Neurological: denies: dizziness, fainting, headache, left sided numbness, left sided weakness, numbness, paresthesia, pre-existing deficit, right sided numbness, right sided weakness, seizure, speech problems, tingling, tremors, weakness, others Musculoskeletal: denies: back pain, gout, joint pain, joint swelling, muscle pain, muscle stiffness, neck pain, others Integumetry: denies: bruises, change in color, change in hair/nails, dryness, laceration, lesions, lumps, rash, wounds, others Allergic/Immunocompromised: denies: Difficulty Healing, Frequent Infections, Hives, Itching, others Hematologic/Lymphatic: denies: anemia, blood clots, easy bleeding, easy bruising, swollen glands, others Endocrine: denies: excessive hunger, excessive sweating, excessive thirst, excessive urination, flushing, intolerance to cold, intolerance to heat, unexplained weight gain, unexplained weight loss, others Psychiatric: denies: anxiety, bipolar disorder, depression, hopeless, panic disorder, schizophrenia, sleepless, suicidal, others All Other Systems: Reviewed and Negative Physical Exam General Appearance: No Apparent Distress HEENT: Other (Face symmetric, Icteric sclera, moist mucous membranes) Neck: Full Range of Motion, Normal Inspection Respiratory: Decreased Breath Sounds, No Accessory Muscle Use, No Respiratory Distress Cardiovascular: No JVD, Regular Rate/Rhythm Breast Exam: Deferred Gastrointestinal: Diffuse, Distended, Soft Genitalia: Deferred Pelvic: Deferred Rectal: Deferred Extremities: Leg edema, No calf tenderness, Normal range of motion, Pedal edema Neurologic: Alert (Oriented x4), Normal Affect, Normal Mood, Other (Ambulatory without difficulty.) Cerebellar Function: NOT DONE Reflexes: NOT DONE Skin: Dry, Jaundice, Warm Lymphatic: NOT DONE EKG EKG : Comments Sinus rhythm, rate 93, normal [place] and QRS intervals, QTC 463, borderline left axis deviation, normal QRS, nonspecific T changes. Was a procedure done? Was a procedure done?: No Differential Dx Differential Diagnosis: Asthma, Bronchitis, CHF, COPD, Pneumonia, Pulmonary Embolism, Respiratory Distress, URI Comments Decompensated liver disease with severe ascites, pleural effusion, among others X-Ray, Labs, Meds, VS Vital Signs Date Time Temp Pulse Resp B/P (MAP) Pulse Ox O2 Delivery O2 Flow Rate FiO2 01/09/25 16:43 18 99 Room Air* 0 21 01/09/25 16:32 98.1 106 18 138/77 (97) 99 98.1 Lab Test 01/09/25 18:12 01/09/25 16:53 Range/Units Troponin I High Sensitivity 5 6 </=34 ng/L White Blood Count 3.1 L 4.4-10.8 10^3/uL Red Blood Count 3.08 L 4.0-5.20 10^6/uL Hemoglobin 11.1 L 12.2-16.2 g/dL Hematocrit 32.2 L 36.0-46.0 % Mean Corpuscular Volume 104.6 H 80.0-100.0 fL Mean Corpuscular Hemoglobin 36.2 H 28.0-32.0 pg Mean Corpuscular Hemoglobin Concent 34.6 32.0-36.0 g/dL Red Cell Distribution Width 21.6 H 11.8-14.3 % Platelet Count 84 L 140-450 10^3/uL Mean Platelet Volume 9.3 6.9-10.8 fL Neutrophils (%) (Auto) 70.8 37.0-80.0 % Lymphocytes (%) (Auto) 9.6 L 10.0-50.0 % Monocytes (%) (Auto) 15.8 H 0.0-12.0 % Eosinophils (%) (Auto) 3.6 0.0-7.0 % Basophils (%) (Auto) 0.2 0.0-2.0 % Neutrophils # (Auto) 2.2 1.6-8.6 10 ^3/uL Lymphocytes # (Auto) 0.3 L 0.4-5.4 10 ^3/uL Monocytes # (Auto) 0.5 0-1.3 10 ^3/uL Eosinophils # (Auto) 0.1 0-0.8 10 ^3/uL Basophils # (Auto) 0 0-0.2 10 ^3/uL Nucleated Red Blood Cells 0.1 % Platelet Estimate Decreased Clumped Platelets Few Large Platelets Few Anisocytosis (manual) Slight Microcytosis Macrocytosis Slight Sodium Level 132 L 136-145 mmol/L Potassium Level 4.4 3.5-5.1 mmol/L Chloride Level 100 98-107 mmol/L Carbon Dioxide Level 25 20-31 mmol/L Anion Gap 7 5-15 Blood Urea Nitrogen 19 9-23 mg/dL Creatinine 0.94 0.550-1.02 mg/dL Glomerular Filtration Rate Calc 66 >90 mL/min BUN/Creatinine Ratio 20.2 H 10.0-20.0 Serum Glucose 122 H 74-106 mg/dL Calcium Level 8.0 L 8.7-10.4 mg/dL Total Bilirubin 6.3 H 0.2-1.0 mg/dL Aspartate Amino Transferase (AST) 74 H 13-40 U/L Alanine Aminotransferase (ALT) 58 H 7-40 U/L Alkaline Phosphatase 130 H 46-116 U/L B-Type Natriuretic Peptide 105.65 0-100 pg/mL Total Protein 6.2 5.7-8.2 g/dL Albumin 2.2 L 3.2-4.8 g/dL [place] [id number] Ph: [phone] DIAGNOSTIC IMAGING Diagnostic Imaging Report : [id number] Signed PATIENT: RODERICK PRATTACCT: [id number] UNIT: [id number] : 1955 LOC: ER ROOM / BED: / AGE / SEX: 70 / F ADM STATUS: REG ER SERVICE [id number] ORDERING PHYSICIAN: EMERY OWEN MD PROCEDURE(s): CXRP - CHEST PORTABLE REASON: sob ORDER NUMBER(s): [id number], ACCESSION NUMBER(s): [id number] CHEST RADIOGRAPH Indication: sob Technique: Single frontal view of the chest was obtained Comparison: XY CHEST PORTABLE on DOS: 04/25/24, XY CHEST PORTABLE on DOS: 03/18/24, XY CHEST PORTABLE on DOS: 12/29/23 FINDINGS: Lines and Tubes: None Lungs: No focal consolidation. Pleura: No effusion. No pneumothorax. Cardiomediastinal contours: Unremarkable Bones: No acute osseous abnormality. IMPRESSION: 1. No acute cardiopulmonary disease. ATED BY: MANUEL PICKENS Jr., DO DICTATED DATE/TIME: 01/09/251701 SIGNED BY: MANUEL PICKENS Jr., SIGNED DATE/TIME: 01/09/251701 CC: X-Ray, Labs, Meds, VS Comment 70-year-old female with a history of hypertension, liver cirrhosis and ascites requiring monthly paracentesis complaining of shortness of breath Vitals remarkable for heart rate 106 Exam remarkable for diffuse abdominal distention and diminished breath sounds at bilateral bases Rhythm strip independently interpreted by me: Sinus rhythm, rate 93, no ectopy. Chest x-ray IMPRESSION: 1. No acute cardiopulmonary disease. CT abdomen and pelvis IMPRESSION: Massive ascites as on previous CT. Cirrhosis. Multiple gallstones. Mild splenomegaly with signs of portal hypertension CBC remarkable for WBC 3.1, platelets 84, CMP remarkable for sodium 132, total bilirubin 6.3, AST 74, ALT 58, alkaline phos 130, coag panel pending, BNP 105.65, troponin negative x2 No acute treatment indicated in ED as patient was saturating normally on room air, and was not in respiratory distress at rest. Plan is to admit the patient for paracentesis. Time of 1ST Reevaluation: 17:10 Reevaluation 1ST: Unchanged Patient Education/Counseling: Diagnosis, Treatment Family Education/Counseling: Diagnosis, Treatment Departure 1 Departure Time of Disposition: 17:08 Impression: Primary Impression: Shortness of breath Additional Impressions: Abdominal ascites Qualified Codes: R18.8 - Other ascites Decompensated liver disease Disposition: ADMITTED INPATIENT Admit to: Med Surg Condition: Fair Critical Care Note Critical Care Time?: No Stability Stability form required: No Heart Score Heart Score: Heart Score Response (Comments) Value History N/A 0 EKG N/A 0 Age N/A 0 Risk Factors N/A 0 Troponin N/A 0 Total 0 I personally scribed for EMERY OWEN MD (RACHID) on 01/09/25 at 16:37. Electronically submitted by Fun[facility]o Saravia ([facility] I personally scribed for EMERY OWEN MD ([email or web address]) on 01/09/25 at 17:11. Electronically submitted by Funmilayo Saravia ([facility] EMERY OWEN MD Jan 09, 2025 16:37
[2025-01-09 17:05] LABS: Basophils # (auto) 0 10 ^3/uL (0-0.2); Eosinophils # (auto) 0.1 10 ^3/uL (0-0.8); Hemoglobin 11.1 g/dL (12.2-16.2); Lymphocytes # (auto) 0.3 10 ^3/uL (0.4-5.4); Mean Corpuscular Volume 104.6 fL (80.0-100.0); Monocytes # (auto) 0.5 10 ^3/uL (0-1.3); Nucleated Red Blood Cells % 0.1 %; White Blood Cell 3.1 10^3/uL (4.4-10.8)
--- NOTE | 2025-01-09 17:05 | DVH ---
CHEST RADIOGRAPH Indication: sob Technique: Single frontal view of the chest was obtained Comparison: XY CHEST PORTABLE on DOS: 04/25/24, XY CHEST PORTABLE on DOS: 03/18/24, XY CHEST PORTABLE on DOS: 12/29/23 FINDINGS: Lines and Tubes: None Lungs: No focal consolidation. Pleura: No effusion. No pneumothorax. Cardiomediastinal contours: Unremarkable Bones: No acute osseous abnormality. IMPRESSION: 1. No acute cardiopulmonary disease.
[2025-01-09 17:07] LABS: Basophils % (auto) 0.2 % (0.0-2.0); Eosinophils % (auto) 3.6 % (0.0-7.0); Hematocrit 32.2 % (36.0-46.0); Lymphocytes % (auto) 9.6 % (10.0-50.0); Mean Corpuscular Hemoglobin 36.2 pg (28.0-32.0); Mean Corpuscular Hgb Conc. 34.6 g/dL (32.0-36.0); Monocytes % (auto) 15.8 % (0.0-12.0); Neutrophils # (auto) 2.2 10 ^3/uL (1.6-8.6); Neutrophils % (auto) 70.8 % (37.0-80.0); Red Blood Cells 3.08 10^6/uL (4.0-5.20)
[2025-01-09 17:08] LABS: Red Cell Distribution Width 21.6 % (11.8-14.3)
--- NOTE | 2025-01-09 17:10 | DVH ---
CT abdomen and pelvis without contrast INDICATION: severe abd distention Comparison: 09/26/2024 TECHNIQUE: Serial axial images were performed through the abdomen and pelvis and then reformatted in the sagittal and coronal plane. All CT scans at this medical facility are performed using dose modula tion techniques as appropriate to a performed exam including the following: Automated exposure contro l was utilized; adjustment of the MA and/or KvP according to patient size; and use of iterative recon struction technique. FINDINGS: Lung bases clear. Soft tissue masses are seen in the lower posterior mediastinum near the G E junction . Liver is shrunken and cirrhotic in appearance. Multiple gallstones are present Spleen borderline in size. No renal masses or stones or hydronephrosis Pancreas is normal in appearance. There is massive ascites present throughout the abdomen and pelvis No evidence of mechanical obstruction of bowel. In the pelvis the bladder is smooth walled. The no uterine or adnexal masses There is extensive cutaneous edema present in the abdominal wall IMPRESSION: Massive ascites as on previous CT. Cirrhosis. Multiple gallstones. Mild splenomegaly with signs of po rtal hypertension Computed Tomographic Radiation Dosimetry Report: Total CTDI vol = 20 mGy Total DLP = 1082 mGy-cm Low dose protocols were performed.
[2025-01-09 17:25] LABS: Anion Gap 7 (5-15); BUN/Creatinine Ratio 20.2 (10.0-20.0); Blood Urea Nitrogen 19 mg/dL (9-23); Carbon Dioxide 25 mmol/L (20-31); Chloride 100 mmol/L (98-107); Potassium 4.4 mmol/L (3.5-5.1); Total Protein 6.2 g/dL (5.7-8.2)
[2025-01-09 17:26] LABS: Alanine Aminotransferase 58 U/L (7-40); Albumin 2.2 g/dL (3.2-4.8); Alkaline Phosphatase 130 U/L (46-116); Aspartate Aminotransferase 74 U/L (13-40); Bilirubin, Total 6.3 mg/dL (0.2-1.0); Glucose 122 mg/dL (74-106); Sodium 132 mmol/L (136-145)
[2025-01-09 18:37] LABS: Platelet Count (auto) 84 10^3/uL (140-450); Platelet Estimate Decreased
[2025-01-09 18:38] LABS: Anisocytosis Slight; Macrocytosis Slight
[2025-01-09 18:39] LABS: Large Platelets FEW
[2025-01-09] MEDS ORDERED: ONDANSETRON HCL 4 MG/2 ML VIAL IV PRN (19:15)
[2025-01-09 19:28] LABS: INR 1.86 (0.9-1.15); Partial Thromboplastin Time 40.3 SEC (24.5-34.5); Prothrombin Time 18.5 sec (9.3-11.8)
[2025-01-09 20:27] LABS: Urine Bacteria FEW /hpf (None Seen); Urine Blood Negative /uL (Negative); Urine Clarity Clear (Clear); Urine Color Yellow (Yellow); Urine Hyaline Cast FEW /lpf (0 - 2); Urine Protein, UAD Negative (Negative); Urine Specific Gravity 1.009 (1.001-1.035); Urine Squamous Epithelial Cell FEW /hpf (<5); Urine Urobilinogen Normal (Negative); Urine WBC 2 /HPF (0-5)
--- NOTE | 2025-01-09 21:23 | DVHHP2 ---
History of Present Illness Reason for Visit: Abdominal pain History of Present Illness 70-year-old female with a history of liver cirrhosis presents for evaluation of abdominal distention. Patient reports a two day history of worsening abdominal distention with associated shortness for breath. She states having had last par acentesis approximately a month ago. Denies fever or chills. No nausea or vomiting. No other acute complaints. Past Medical History Liver cirrhosis and hypertension Past Surgical History Brain aneurysm repair Family History Noncontributory Smoke: No ALCOHOL: none Drugs: None Lives: with Family Review of Systems Review of Systems Review of systems are currently negative otherwise addressed in HPI. Allergies: Coded Allergies: Vitamin K (Verified Allergy, Severe, 11/13/23) Ketamine (Verified Allergy, Unknown, 02/21/24) Medications Current Medications Medications Dose Ordered Sig/Luis A Route Start Time Stop Time Status Last Admin Dose Admin Spironolactone 50 mg DAILY PO 01/10/25 10:00 Furosemide 40 mg DAILY PO 01/10/25 10:00 Ondansetron HCl 4 mg Q4HP PRN IV 01/09/25 19:15 Exam Vital Signs Vital Signs Date Time Temp Pulse Resp B/P (MAP) Pulse Ox O2 Delivery O2 Flow Rate FiO2 01/09/25 16:43 18 99 Room Air* 0 21 01/09/25 16:32 98.1 106 138/77 (97) 98.1 Exam Gen: 70-year-old female in mild distress. Skin: Warm, dry, normal color and texture, no rash. HEENT: Normocephalic atraumatic, mucous membranes moist and pink. Neck: Cervical and supraclavicular nodes normal without enlargement, trachea is midline, thyroid gland is normal without masses. Pulmonary: Clear to auscultation and percussion bilaterally. Cardiac: Regular rate and rhythm. No murmur Abdomen: Soft, nontender, distended with ascites, bowel sounds present all 4 quadrants, no guarding, no rigidity, no organomegaly. Extremities: No cyanosis, clubbing, no edema Neuro: Cranial nerves II through XII grossly intact, normal affect and speech, no focal motor deficits. Labs/Xrays ORDERING PHYSICIAN: EMERY OWEN MD PROCEDURE(s): CXRP - CHEST PORTABLE REASON: sob ORDER NUMBER(s): [id number], ACCESSION NUMBER(s): [id number] CHEST RADIOGRAPH Indication: sob Technique: Single frontal view of the chest was obtained Comparison: XY CHEST PORTABLE on DOS: 04/25/24, XY CHEST PORTABLE on DOS: 03/18/24, XY CHEST PORTABLE on DOS: 12/29/23 FINDINGS: Lines and Tubes: None Lungs: No focal consolidation. Pleura: No effusion. No pneumothorax. Cardiomediastinal contours: Unremarkable Bones: No acute osseous abnormality. IMPRESSION: 1. No acute cardiopulmonary disease. RING PHYSICIAN: EMERY OWEN MD PROCEDURE(s): ABPL - CT AB PEL WO CON-NO ORAL OR IV REASON: severe abd distention ORDER NUMBER(s): [id number], ACCESSION NUMBER(s): [id number] CT abdomen and pelvis without contrast INDICATION: severe abd distention Comparison: 09/26/2024 TECHNIQUE: Serial axial images were performed through the abdomen and pelvis and then reformatted in the sagittal and coronal plane. All CT scans at this medical facility are performed using dose modulation techniques as appropriate to a performed exam including the following: Automated exposure control was utilized; adjustment of the MA and/or KvP according to patient size; and use of iterative reconstruction technique. FINDINGS: Lung bases clear. Soft tissue masses are seen in the lower posterior mediastinum near the GE junction . Liver is shrunken and cirrhotic in appearance. Multiple gallstones are present Spleen borderline in size. No renal masses or stones or hydronephrosis Pancreas is normal in appearance. There is massive ascites present throughout the abdomen and pelvis No evidence of mechanical obstruction of bowel. In the pelvis the bladder is smooth walled. The no uterine or adnexal masses There is extensive cutaneous edema present in the abdominal wall IMPRESSION: Massive ascites as on previous CT. Cirrhosis. Multiple gallstones. Mild splenomegaly with signs of portal hypertension Computed Tomographic Radiation Dosimetry Report: Total CTDI vol = 20 mGy Total DLP = 1082 mGy-cm Low dose protocols were performed. Labs Test 01/09/25 19:31 01/09/25 18:12 01/09/25 16:53 01/09/25 16:27 Range/Units Ammonia 34 H 11-32 umol/L Troponin I High Sensitivity 5 </=34 ng/L White Blood Count 3.1 L 4.4-10.8 10^3/uL Red Blood Count 3.08 L 4.0-5.20 10^6/uL Hemoglobin 11.1 L 12.2-16.2 g/dL Hematocrit 32.2 L 36.0-46.0 % Mean Corpuscular Volume 104.6 H 80.0-100.0 fL Mean Corpuscular Hemoglobin 36.2 H 28.0-32.0 pg Mean Corpuscular Hemoglobin Concent 34.6 32.0-36.0 g/dL Red Cell Distribution Width 21.6 H 11.8-14.3 % Platelet Count 84 L 140-450 10^3/uL Mean Platelet Volume 9.3 6.9-10.8 fL Neutrophils (%) (Auto) 70.8 37.0-80.0 % Lymphocytes (%) (Auto) 9.6 L 10.0-50.0 % Monocytes (%) (Auto) 15.8 H 0.0-12.0 % Eosinophils (%) (Auto) 3.6 0.0-7.0 % Basophils (%) (Auto) 0.2 0.0-2.0 % Neutrophils # (Auto) 2.2 1.6-8.6 10 ^3/uL Lymphocytes # (Auto) 0.3 L 0.4-5.4 10 ^3/uL Monocytes # (Auto) 0.5 0-1.3 10 ^3/uL Eosinophils # (Auto) 0.1 0-0.8 10 ^3/uL Basophils # (Auto) 0 0-0.2 10 ^3/uL Nucleated Red Blood Cells 0.1 % Platelet Estimate Decreased Clumped Platelets Few Large Platelets Few Anisocytosis (manual) Slight Microcytosis Macrocytosis Slight Prothrombin Time 18.5 H 9.3-11.8 sec Prothrombin Time INR 1.86 H 0.9-1.15 Activated Partial Thromboplast Time 40.3 H 24.5-34.5 SEC Sodium Level 132 L 136-145 mmol/L Potassium Level 4.4 3.5-5.1 mmol/L Chloride Level 100 98-107 mmol/L Carbon Dioxide Level 25 20-31 mmol/L Anion Gap 7 5-15 Blood Urea Nitrogen 19 9-23 mg/dL Creatinine 0.94 0.550-1.02 mg/dL Glomerular Filtration Rate Calc 66 >90 mL/min BUN/Creatinine Ratio 20.2 H 10.0-20.0 Serum Glucose 122 H 74-106 mg/dL Calcium Level 8.0 L 8.7-10.4 mg/dL Total Bilirubin 6.3 H 0.2-1.0 mg/dL Aspartate Amino Transferase (AST) 74 H 13-40 U/L Alanine Aminotransferase (ALT) 58 H 7-40 U/L Alkaline Phosphatase 130 H 46-116 U/L B-Type Natriuretic Peptide 105.65 0-100 pg/mL Total Protein 6.2 5.7-8.2 g/dL Albumin 2.2 L 3.2-4.8 g/dL Urine Color Yellow Yellow Urine Clarity Clear Clear Urine pH 6.0 5.0-9.0 Urine Specific [place] 1.009 1.001-1.035 Urine Protein Negative Negative Urine Ketones Negative Negative Urine Blood Negative Negative /uL Urine Nitrite Negative Negative Urine Bilirubin Negative Negative Urine Urobilinogen Normal Negative mg/dL Urine Leukocyte Esterase Negative Negative /uL Urine RBC 2 0 - 4 /hpf Urine Microscopic WBC 2 0-5 /HPF Urine Squamous Epithelial Cells Few <5 /hpf Urine Calcium Oxalate Crystals Many None Seen Urine Bacteria Few H None Seen /hpf Urine Hyaline Casts Few 0 - 2 /lpf Urine Glucose Normal Normal mg/dL Assessment/Plan Assessment/Plan Assessment Abdominal distention with ascites Liver cirrhosis Pancytopenia secondary to the above Transaminitis Severe protein malnutrition with associated hypoalbuminemia Hyperammonemia Plan Admit the patient to [facility] to the hospitalist Radiology consultation for paracentesis Resume home medications Continue treatment per orders. Plan discussed with: Patient My Orders Orders - KENDALL CH AGACNP Procedure Category Date Status Time Hepatic Diet DIET 01/10/25 Transmitted (50gmpro,2gmna) Breakfast Spironolactone PHA 01/10/25 In Process (Aldactone) 10:00 Furosemide Tablet PHA 01/10/25 In Process (Lasix Tablet) 10:00 * Radiologist Consult CONS 01/09/25 Transmitted 19:08 Admit ADMIT 01/09/25 Transmitted 19:08 Ondansetron Hcl PHA 01/09/25 In Process (Zofran) 19:15 Complete Blood Count LAB 01/10/25 Verified 04:00 Comprehensive LAB 01/10/25 Verified Metabolic Panel 04:00 Condition: Stable SWATI 01/09/25 In Process 19:08 Bedrest With Bathroom SWATI 01/09/25 In Process Privileg 19:08 Date of Service: Jan 09, 2025 Billing Provider: KENDALL CH Common Visit Codes: [id number] INP/OBS CARE (HIGH) KENDALL CH Jan 09, 2025 21:23
[2025-01-09 23:31] VITALS: PULSE 82; RESP 18; O2SAT 99
[2025-01-09] MEDS: traMADol HCL 50 MG TAB PO ONE (23:53)
[2025-01-10 00:10] VITALS: PULSE 85; RESP 20; O2SAT 99
[2025-01-10 05:40] LABS: Mean Corpuscular Volume 103.8 fL (80.0-100.0)
[2025-01-10 05:43] LABS: Hematocrit 30.4 % (36.0-46.0); Hemoglobin 10.7 g/dL (12.2-16.2); Mean Corpuscular Hemoglobin 36.4 pg (28.0-32.0); Platelet Count (auto) 34 10^3/uL (140-450); Red Blood Cells 2.93 10^6/uL (4.0-5.20); Red Cell Distribution Width 21.9 % (11.8-14.3); White Blood Cell 2.8 10^3/uL (4.4-10.8)
[2025-01-10 05:47] LABS: Band Neutrophils % (manual) 0; Basophils % (manual) 0 (0.0-2.0); Blast Cells 0; Metamyelocytes % 0; Myelocytes % 0; Promyelocytes % 0; Reactive Lymphocytes 0
[2025-01-10 05:52] LABS: Anion Gap 5 (5-15); BUN/Creatinine Ratio 18.7 (10.0-20.0); Blood Urea Nitrogen 17 mg/dL (9-23); Carbon Dioxide 25 mmol/L (20-31); Chloride 100 mmol/L (98-107); Glucose 104 mg/dL (74-106); Potassium 4.2 mmol/L (3.5-5.1); Total Protein 6.1 g/dL (5.7-8.2)
[2025-01-10 05:54] LABS: Sodium 130 mmol/L (136-145)
[2025-01-10 05:55] LABS: Alanine Aminotransferase 52 U/L (7-40); Albumin 2.1 g/dL (3.2-4.8); Alkaline Phosphatase 123 U/L (46-116); Aspartate Aminotransferase 63 U/L (13-40); Bilirubin, Total 5.2 mg/dL (0.2-1.0)
[2025-01-10 06:27] LABS: Anisocytosis Slight; Eosinophils % (manual) 4 (0-7); Lymphocytes % (manual) 7 (10.0-50.0); Macrocytosis Slight; Monocytes % (manual) 18 (0-12)
[2025-01-10 06:28] LABS: Platelet Estimate Decreased
--- NOTE | 2025-01-10 08:23 | ECG ---
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
[2025-01-10] MEDS ORDERED: SPIRONOLACTONE 25 MG TAB PO SCH (10:00)
[2025-01-10] MEDS: SPIRONOLACTONE 25 MG TAB PO SCH (11:11)
[2025-01-10] MEDS: LACTULOSE 20Gm/30ML SOLN PO SCH (11:11)
[2025-01-10] MEDS: FUROSEMIDE 40 MG TAB PO SCH (11:12)
--- NOTE | 2025-01-10 11:43 | DVHPNRES ---
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 Upon admission, patient stated that in the past three days she started feeling severe abdominal distention and that was compromising her breathing causing slightly shortness of breaths. The patient recognizes that has been visit our ED previously for similar issues where she got previous paracentesis for ascitic fluid removal. Patient states that last paracentesis was on 12/11/2024, where they removed the proximally 7.4 L of fluid. On this admission, the patient denies fever/chills, chest pain, abdominal pain or any other additional complaints. Upon my examination, patient had bilateral lower extremity edema 3+ pitting edema extending all the way to the abdomen causing anasarca and significant ascites. Patient will be admitted for further assessment and management of decompensated liver cirrhosis with ascites. Patient seen and examined at bedside. Patient is alert and oriented in person, place and time. 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 Upon my examination, patient has bilateral lower extremity 3+ pitting edema extending all the way from the foots to the abdomen with massive ascites. We started the patient on IV furosemide 40 mg po daily and spironolactone 100 mg po. We will also consulted interventional radiologist for paracentesis. Patient denies fever/chills, chest pain, abdominal tenderness or any other symptoms. ROS Constitutional: Denies weight loss, fever and chills. HEENT: Denies changes in vision and hearing. Respiratory: Denies shortness of breath and cough Cardiovascular: Denies chest discomfort or palpitations GI: Reports significant and severe abdominal distention. Denies tenderness in the abdomen, vomiting or nausea. : Denies dysuria and urinary frequency. Musculoskeletal: Denies myalgias and joint pain Skin: Denies rash and pruritus. Neurological: Denies dizziness, headache, vision or hearing problems Objective vital signs Vital Sign Date Time Temp Pulse Resp B/P (MAP) Pulse Ox O2 Delivery O2 Flow Rate FiO2 01/10/25 11:12 106/55 01/10/25 09:00 97.4 91 14 96 97.4 01/10/25 07:32 Room Air* 0 21 medications Current Medications Medications Dose Ordered Sig/Luis A Route Start Time Stop Time Status Last Admin Dose Admin Furosemide 40 mg DAILY PO 01/10/25 10:00 01/10/25 11:12 40 MG Ondansetron HCl 4 mg Q4HP PRN IV 01/09/25 19:15 Lactulose 30 ml DAILY PO 01/10/25 10:00 01/10/25 11:11 30 ML Spironolactone 100 mg DAILY PO 01/10/25 10:00 01/10/25 11:11 100 MG Examination Physical Examination General: Patient alert and oriented in person, place and time. Patient following commands. HEENT: Normocephalic, atraumatic, moist mucous membranes Respiratory/pulmonary: Clear lungs bilaterally, no associated crackles or wheezes. Cardiovascular: Normal heart sounds S1 and S2 with no associated murmurs Abdomen: There is significant abdominal distention with anasarca and 3+ pitting edema from bilateral lower extremities all the way up to the abdomen. Fluid waves positive with significant ascites. No tenderness to palpation to the abdomen. Extremities: There is significant peripheral edema present on both lower extremities, 3+ pitting edema extending to the abdomen/anasarca. Peripheral Pulses: 3+ Radial (R). 3+ Radial (L). 3+ Dorsalis pedis (R). 3+ Dorsalis pedis(L) Skin: No rashes or pruritus, there is no sacral edema present at this time. Neurological: Intact cranial nerves with no focal neurologic deficits laboratory and microbiology Laboratory Tests 01/10/25 05:08 Test 01/10/25 05:08 Range/Units Serum Glucose 104 74-106 mg/dL Problem List/Assessment/Plan Problem List/Assessment/Plan Assessment/Plan Acute decompensated liver cirrhosis with massive ascites Acute severe massive ascites Possible acute metabolic encephalopathy likely due to above -ammonia slightly elevated at 34 -start lactulose 30 cc daily -start spironolactone 100 mg p.o. daily -start furosemide 40 mg p.o. daily -consulted interventional radiologist for paracentesis -patient denies alcohol/drugs or smoking history -ordered hepatitis panel -liver enzymes, alkaline phosphatase and total bilirubin are slightly elevated. 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 -monitor labs Blindness of the left eye Right eye glaucoma -patient following up Ophthalmology in the outpatient setting Primary hypertension -blood pressure in the lower side -continue furosemide and spironolactone as described above -monitor blood pressure closely Goals of care discussed with the patient at bedside for >25min Plan discussed with Dr. Heath Plan discussed with: Patient My Orders My Orders Orders - GREYSON RICHARDS Procedure Category Date Status Time Spironolactone PHA 01/10/25 In Process (Aldactone) 10:00 Date of Service: Jan 10, 2025 Billing Provider: KATHY HEATH MD Common Visit Codes: [id number] INP/OBS CARE(HIGH) GREYSON RICHARDS Jan 10, 2025 11:43 KATHY HEATH MD Jan 10, 2025 14:17
[2025-01-10 11:53] LABS: Triglycerides 38 mg/dL (< 150)
[2025-01-10 11:54] LABS: LDL Cholesterol 49 mg/dL (< 100)
[2025-01-10 11:56] LABS: Cholesterol 99 mg/dL (< 200); HDL Cholesterol 29 mg/dL (40-59)
[2025-01-10 12:18] LABS: Hepatitis A Ab IgM Negative; Hepatitis B Core IgM Negative (Negative); Hepatitis B Surface Antigen Negative (Negative); Hepatitis C Antibody Negative (Negative)
[2025-01-10 12:46] LABS: Body Fluid Red Blood Cells 1057 CUMM (0-2000); Body Fluid White Blood Cells 21 CUMM (0-200)
[2025-01-10 15:23] VITALS: BP 118/53; PULSE 89; RESP 16; TEMP 97.8; O2SAT 97
--- NOTE | 2025-01-10 16:02 | DVH ---
US PARACENTESIS, HISTORY: ASCITES PROCEDURE: Informed consent was obtained. The patient was placed in supine position. A limited locali zation ultrasound of the abdomen was obtained, and the skin site over the largest pocket of fluid was marked and entry site was prepped with chlorhexidine which was allowed to dry and draped in the usua l sterile fashion. Time out was performed. Following administration of 1% lidocaine local anesthetic, a 5 Angolan centesis needle catheter was percutaneously inserted into the peritoneal collection until fluid was aspirated. The catheter was advanced into the fluid collection and the needle removed. Abo ut 6400 cc of fluid was aspirated . The catheter was then removed and a sterile dressing applied. No immediate complication was identified. FINDINGS: Limited ultrasound imaging demonstrates moderate ascites. Aspirated fluid was clear and ser ous. IMPRESSION: US-guided paracentesis with 6.4L removed.
[2025-01-10] MEDS: ALBUMIN 25% 100 ML IV SCH (16:54)
[2025-01-10 17:00] VITALS: BP 108/63; PULSE 89; RESP 16; TEMP 97.7; O2SAT 74
[2025-01-10 17:18] VITALS: BP 118/53; PULSE 89; RESP 16; TEMP 97.8; O2SAT 97
[2025-01-10 20:00] VITALS: PULSE 88; RESP 18; O2SAT 99
[2025-01-10 21:00] VITALS: BP 101/57; PULSE 88; RESP 18; TEMP 98.4; O2SAT 99
[2025-01-11] VITALS (12 sets, daily range): BP systolic 91–105; BP diastolic 49–61; PULSE 89–96; RESP 16–20; TEMP 98.4–100.5; O2SAT 94–97
[2025-01-11 05:52] LABS: Hematocrit 23.9 % (36.0-46.0); Hemoglobin 8.3 g/dL (12.2-16.2); Mean Corpuscular Hemoglobin 36.2 pg (28.0-32.0); Mean Corpuscular Hgb Conc. 34.6 g/dL (32.0-36.0); Mean Corpuscular Volume 104.7 fL (80.0-100.0); Red Blood Cells 2.28 10^6/uL (4.0-5.20)
[2025-01-11 06:06] LABS: Chloride 101 mmol/L (98-107); Potassium 4.5 mmol/L (3.5-5.1)
[2025-01-11 06:07] LABS: Anion Gap 7 (5-15); Carbon Dioxide 24 mmol/L (20-31); Red Cell Distribution Width 21.9 % (11.8-14.3)
[2025-01-11 06:10] LABS: Platelet Count (auto) 10 10^3/uL (140-450); White Blood Cell 1.5 10^3/uL (4.4-10.8)
[2025-01-11 06:12] LABS: BUN/Creatinine Ratio 18.8 (10.0-20.0); Basophils % (manual) 0 (0.0-2.0); Blast Cells 0; Blood Urea Nitrogen 18 mg/dL (9-23); Glucose 99 mg/dL (74-106); Metamyelocytes % 0; Myelocytes % 0; Promyelocytes % 0; Reactive Lymphocytes 0
[2025-01-11 06:13] LABS: Calcium 8.1 mg/dL (8.7-10.4); Sodium 132 mmol/L (136-145)
[2025-01-11 06:43] LABS: Anisocytosis Slight; Band Neutrophils % (manual) 1; Eosinophils % (manual) 2 (0-7); Lymphocytes % (manual) 11 (10.0-50.0); Macrocytosis Slight; Monocytes % (manual) 14 (0-12)
[2025-01-11 06:44] LABS: Platelet Estimate Decreased
--- NOTE | 2025-01-11 11:20 | DVHPN2 ---
Reviewed: Care Plan, H&P, Labs Changes from previous H/P or p: No Changes General: Per HPI Objective Vitals Vital Signs Date Time Temp Pulse Resp B/P (MAP) Pulse Ox O2 Delivery O2 Flow Rate FiO2 01/11/25 09:07 105/49 01/11/25 09:00 99.8 96 19 96 99.8 01/11/25 08:00 Room Air* 0 21 Intake/Output Intake and Output 01/11/25 07:00 Intake Total 500 ml Balance 500 ml Intake Oral 400 ml IV Total 100 ml # Voids 2 Medications Current Medications Medications Dose Ordered Sig/Luis A Route Start Time Stop Time Status Last Admin Dose Admin Furosemide 40 mg DAILY PO 01/10/25 10:00 01/11/25 09:07 40 MG Ondansetron HCl 4 mg Q4HP PRN IV 01/09/25 19:15 Lactulose 30 ml DAILY PO 01/10/25 10:00 01/11/25 09:06 30 ML Spironolactone 100 mg DAILY PO 01/10/25 10:00 01/11/25 09:07 100 MG Laboratory Results Laboratory Tests 01/11/25 05:17 Chemistry Test 01/11/25 05:17 Calcium Level 8.1 mg/dL (8.7-10.4) L Urinalysis Test 01/09/25 16:27 Urine Color Yellow (Yellow) Urine Clarity Clear (Clear) Urine pH 6.0 (5.0-9.0) Urine Specific [place] 1.009 (1.001-1.035) Urine Protein Negative (Negative) Urine Ketones Negative (Negative) Urine Blood Negative /uL (Negative) Urine Nitrite Negative (Negative) Urine Bilirubin Negative (Negative) Urine Urobilinogen Normal mg/dL (Negative) Urine Leukocyte Esterase Negative /uL (Negative) Urine RBC 2 /hpf (0 - 4) Urine Microscopic WBC 2 /HPF (0-5) Urine Squamous Epithelial Cells Few /hpf (<5) Urine Calcium Oxalate Crystals Many (None Seen) Urine Bacteria Few /hpf (None Seen) H Urine Hyaline Casts Few /lpf (0 - 2) Urine Glucose Normal mg/dL (Normal) Labs and/or images reviewed: Labs reviewed by me, Image(s) reviewed by me Assessment/Plan Assessment/Plan Acute decompensated liver cirrhosis with massive ascites Acute severe massive ascites Possible acute metabolic encephalopathy likely due to above -ammonia slightly elevated at 34 -start lactulose 30 cc daily -start spironolactone 100 mg p.o. daily -start furosemide 40 mg p.o. daily -consulted interventional radiologist for paracentesis -patient denies alcohol/drugs or smoking history -ordered hepatitis panel -liver enzymes, alkaline phosphatase and total bilirubin are slightly elevated. 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 -monitor labs Blindness of the left eye Right eye glaucoma -patient following up Ophthalmology in the outpatient setting Primary hypertension -blood pressure in the lower side -continue furosemide and spironolactone as described above -monitor blood pressure closely Goals of care discussed with the patient at bedside for >25min Plan discussed with: Patient Date of Service: Jan 11, 2025 Billing Provider: SRIKANTH VILLANUEVA DO Common Visit Codes: [id number] INP/OBS CARE(HIGH) SRIKANTH VILLANUEVA DO Jan 11, 2025 11:20
[2025-01-11] MEDS ORDERED: LACTULOSE 20Gm/30ML SOLN PO SCH ×2 (14:00→22:00)
[2025-01-11] MEDS: LACTULOSE 20Gm/30ML SOLN PO SCH (15:34)
[2025-01-11 17:07] LABS: Protein, Body Fluid 0.4 g/dL (.)
[2025-01-12] VITALS (7 sets, daily range): BP systolic 102–112; BP diastolic 53–59; PULSE 88–97; RESP 18–20; TEMP 98.3–98.8; O2SAT 96–97
[2025-01-12 08:24] LABS: Basophils # (auto) 0 10 ^3/uL (0-0.2); Eosinophils # (auto) 0.1 10 ^3/uL (0-0.8); Neutrophils # (auto) 2.1 10 ^3/uL (1.6-8.6)
[2025-01-12 08:27] LABS: Basophils % (auto) 0.3 % (0.0-2.0); Hematocrit 25.8 % (36.0-46.0); Lymphocytes # (auto) 0.2 10 ^3/uL (0.4-5.4); Lymphocytes % (auto) 8.2 % (10.0-50.0); Mean Corpuscular Hemoglobin 36.7 pg (28.0-32.0); Mean Corpuscular Hgb Conc. 34.8 g/dL (32.0-36.0); Mean Corpuscular Volume 105.4 fL (80.0-100.0); Monocytes # (auto) 0.6 10 ^3/uL (0-1.3); Monocytes % (auto) 19.3 % (0.0-12.0); Neutrophils % (auto) 70.2 % (37.0-80.0); Platelet Count (auto) 25 10^3/uL (140-450); Red Blood Cells 2.44 10^6/uL (4.0-5.20); Red Cell Distribution Width 21.7 % (11.8-14.3); White Blood Cell 2.9 10^3/uL (4.4-10.8)
[2025-01-12 08:39] LABS: Glucose 94 mg/dL (74-106)
[2025-01-12 08:40] LABS: Anion Gap 6 (5-15); BUN/Creatinine Ratio 17.6 (10.0-20.0); Blood Urea Nitrogen 16 mg/dL (9-23); Calcium 8.3 mg/dL (8.7-10.4); Carbon Dioxide 25 mmol/L (20-31); Chloride 102 mmol/L (98-107); Potassium 4.4 mmol/L (3.5-5.1); Sodium 133 mmol/L (136-145)
--- NOTE | 2025-01-12 11:58 | DVHDSRES ---
Discharge Summary Date of Admission Resident Creating Document: GREYSON RICHARDS RESIDENT Jan 09, 2025 at 19:08 Date of Discharge: Jan 12, 2025 Admitting Diagnosis Severe abdominal distention Wounds: No wounds present at this time. Labs/Diagnostic Data: Laboratory Results Test 01/12/25 08:05 01/11/25 13:05 01/11/25 05:17 01/10/25 12:52 White Blood Count 2.9 10^3/uL (4.4-10.8) Red Blood Count 2.44 10^6/uL (4.0-5.20) Hemoglobin 9.0 g/dL (12.2-16.2) Hematocrit 25.8 % (36.0-46.0) Mean Corpuscular Volume 105.4 fL (80.0-100.0) Mean Corpuscular Hemoglobin 36.7 pg (28.0-32.0) Mean Corpuscular Hemoglobin Concent 34.8 g/dL (32.0-36.0) Red Cell Distribution Width 21.7 % (11.8-14.3) Platelet Count 25 10^3/uL (140-450) Mean Platelet Volume 10.2 fL (6.9-10.8) Neutrophils (%) (Auto) 70.2 % (37.0-80.0) Lymphocytes (%) (Auto) 8.2 % (10.0-50.0) Monocytes (%) (Auto) 19.3 % (0.0-12.0) Eosinophils (%) (Auto) 2.0 % (0.0-7.0) Basophils (%) (Auto) 0.3 % (0.0-2.0) Neutrophils # (Auto) 2.1 10 ^3/uL (1.6-8.6) Lymphocytes # (Auto) 0.2 10 ^3/uL (0.4-5.4) Monocytes # (Auto) 0.6 10 ^3/uL (0-1.3) Eosinophils # (Auto) 0.1 10 ^3/uL (0-0.8) Basophils # (Auto) 0 10 ^3/uL (0-0.2) Nucleated Red Blood Cells 0.0 % Sodium Level 133 mmol/L (136-145) Potassium Level 4.4 mmol/L (3.5-5.1) Chloride Level 102 mmol/L (98-107) Carbon Dioxide Level 25 mmol/L (20-31) Anion Gap 6 (5-15) Blood Urea Nitrogen 16 mg/dL (9-23) Creatinine 0.91 mg/dL (0.550-1.02) Glomerular Filtration Rate Calc 69 mL/min (>90) BUN/Creatinine Ratio 17.6 (10.0-20.0) Serum Glucose 94 mg/dL (74-106) Calcium Level 8.3 mg/dL (8.7-10.4) Ammonia 119 umol/L (11-32) Differential Total Cells Counted 100.0 (100) Neutrophils % (Manual) 72 (37.0-80.0) Band Neutrophils % (Manual) 1 Lymphocytes % (Manual) 11 (10.0-50.0) Monocytes % (Manual) 14 (0-12) Eosinophils % (Manual) 2 (0-7) Basophils % (Manual) 0 (0.0-2.0) Metamyelocytes % (manual) 0 Myelocytes % (Manual) 0 Promyelocytes % (Manual) 0 Blast Cells % (Manual) 0 Reactive Lymphocytes 0 Platelet Estimate Decreased Anisocytosis (manual) Slight Macrocytosis Slight Tumor Marker Alpha Fetoprotein 2.3 ng/mL (0.0-9.2) Test 01/10/25 11:10 01/10/25 05:08 01/09/25 18:12 01/09/25 16:53 Body Fluid Source Ascities fluid Body Fluid pH 9.0 Body Fluid WBC (Manual) 21 CUMM (0-200) Body Fluid RBC (Manual) 1057 CUMM (0-2000) Body Fluid Mononuclear Cells 88 % Body Fluid Polymorphonuclear Cells 12 % (0-25) Body Fluid Glucose 113 mg/dL (.) Body Fluid Total Protein 0.4 g/dL (.) Body Fluid Lactate Dehydrogenase 31 IU/L (.) Total Bilirubin 5.2 mg/dL (0.2-1.0) Aspartate Amino Transferase (AST) 63 U/L (13-40) Alanine Aminotransferase (ALT) 52 U/L (7-40) Alkaline Phosphatase 123 U/L (46-116) Total Protein 6.1 g/dL (5.7-8.2) Albumin 2.1 g/dL (3.2-4.8) Triglycerides Level 38 mg/dL (< 150) Cholesterol Level 99 mg/dL (< 200) LDL Cholesterol 49 mg/dL (< 100) HDL Cholesterol 29 mg/dL (40-59) Hepatitis A IgM Antibody Negative Hepatitis B Surface Antigen Negative (Negative) Hepatitis B Core IgM Antibody Negative (Negative) Hepatitis C Antibody Negative (Negative) Troponin I High Sensitivity 5 ng/L (</=34) Clumped Platelets Few Large Platelets Few Microcytosis Prothrombin Time 18.5 sec (9.3-11.8) Prothrombin Time INR 1.86 (0.9-1.15) Activated Partial Thromboplast Time 40.3 SEC (24.5-34.5) B-Type Natriuretic Peptide 105.65 pg/mL (0-100) Test 01/09/25 16:27 Urine Color Yellow (Yellow) Urine Clarity Clear (Clear) Urine pH 6.0 (5.0-9.0) Urine Specific [place] 1.009 (1.001-1.035) Urine Protein Negative (Negative) Urine Ketones Negative (Negative) Urine Blood Negative /uL (Negative) Urine Nitrite Negative (Negative) Urine Bilirubin Negative (Negative) Urine Urobilinogen Normal mg/dL (Negative) Urine Leukocyte Esterase Negative /uL (Negative) Urine RBC 2 /hpf (0 - 4) Urine Microscopic WBC 2 /HPF (0-5) Urine Squamous Epithelial Cells Few /hpf (<5) Urine Calcium Oxalate Crystals Many (None Seen) Urine Bacteria Few /hpf (None Seen) Urine Hyaline Casts Few /lpf (0 - 2) Urine Glucose Normal mg/dL (Normal) Other Laboratory Tests 01/12/25 08:05 Brief Hx & Hospital Course: This is a 70-year-old female with past medical history of liver cirrhosis, hypertension, legally blind of the left eye, glaucoma on right eye, previous history of recurrent paracentesis who presented to the ED due to severe abdominal distention associated with shortness of breaths. Upon admission, patient stated that in the past three days she started feeling severe abdominal distention and that was compromising her breathing causing slightly shortness of breaths. The patient recognizes that has been visit our ED previously for similar issues where she got previous paracentesis for ascitic fluid removal. Patient states that last paracentesis was on 12/11/2024, where they removed the proximally 7.4 L of fluid. On this admission, the patient denies fever/chills, chest pain, abdominal pain or any other additional complaints. Upon my examination, patient had bilateral lower extremity edema 3+ pitting edema extending all the way to the abdomen causing anasarca and significant ascites. Interventional radiology was consulted for paracentesis which was performed successfully removing 6.4 L of fluid. We administered 50 g of IV albumin to replace approximately 8 grams/liter of paracentesis. We will increase the dose of furosemide to 40 mg daily p.o. and increase spironolactone to 100 mg p.o.. Patient had elevated ammonia levels reason why we start the patient on lactulose but patient has been alert and oriented during all hospitalization. Today, patient was seen and examined at bedside. Patient is alert and oriented in person, place and time, denies fever/chills or any other symptoms. Patient also denies abdominal pain, or significant distention. Patient states that he is feeling much better compared to admission. We will discharge the patient home on spironolactone 100 mg daily, furosemide 40 mg daily and lactulose 30 cc daily for 10 days. Patient needs to follow up closely with her PCP in one week. Patient agrees and understands the plan. ROS Constitutional: Denies weight loss, fever and chills. HEENT: Denies changes in vision and hearing. Respiratory: Denies shortness of breath and cough Cardiovascular: Denies chest discomfort or palpitations GI: Denies abdominal pain, nausea, vomiting and diarrhea. : Denies dysuria and urinary frequency. Musculoskeletal: Denies myalgias and joint pain Skin: Denies rash and pruritus. Neurological: Denies dizziness, headache, vision or hearing problems Physical Examination General: Patient alert and oriented in person, place and time. Patient following commands. HEENT: Normocephalic, atraumatic, moist mucous membranes Respiratory/pulmonary: Clear lungs bilaterally, no associated crackles or wheezes. Cardiovascular: Normal heart sounds S1 and S2 with no associated murmurs Abdomen: There is still mild bilateral lower extremity edema 2+, that has improved considerably compared to admission. They are still mild abdominal distention but has significantly improved after paracentesis. Extremities: There is significant peripheral edema present on both lower extremities, 3+ pitting edema extending to the abdomen/anasarca. Peripheral Pulses: 3+ Radial (R). 3+ Radial (L). 3+ Dorsalis pedis (R). 3+ Dorsalis pedis(L) Skin: No rashes or pruritus, there is no sacral edema present at this time. Neurological: Intact cranial nerves with no focal neurologic deficits Consults/Reason for consult IR for paracentesis Operations or Procedures CT abdomen and pelvis without contrast INDICATION: severe abd distention Comparison: 09/26/2024 TECHNIQUE: Serial axial images were performed through the abdomen and pelvis and then reformatted in the sagittal and coronal plane. All CT scans at this medical facility are performed using dose modulation techniques as appropriate to a performed exam including the following: Automated exposure control was utilized; adjustment of the MA and/or KvP according to patient size; and use of iterative reconstruction technique. FINDINGS: Lung bases clear. Soft tissue masses are seen in the lower posterior mediastinum near the GE junction . Liver is shrunken and cirrhotic in appearance. Multiple gallstones are present Spleen borderline in size. No renal masses or stones or hydronephrosis Pancreas is normal in appearance. There is massive ascites present throughout the abdomen and pelvis No evidence of mechanical obstruction of bowel. In the pelvis the bladder is smooth walled. The no uterine or adnexal masses There is extensive cutaneous edema present in the abdominal wall IMPRESSION: Massive ascites as on previous CT. Cirrhosis. Multiple gallstones. Mild splenomegaly with signs of portal hypertension Computed Tomographic Radiation Dosimetry Report: Total CTDI vol = 20 mGy Total DLP = 1082 mGy-cm Low dose protocols were performed. CHEST RADIOGRAPH Indication: sob Technique: Single frontal view of the chest was obtained Comparison: XY CHEST PORTABLE on DOS: 04/25/24, XY CHEST PORTABLE on DOS: 03/18/24, XY CHEST PORTABLE on DOS: 12/29/23 FINDINGS: Lines and Tubes: None Lungs: No focal consolidation. Pleura: No effusion. No pneumothorax. Cardiomediastinal contours: Unremarkable Bones: No acute osseous abnormality. IMPRESSION: 1. No acute cardiopulmonary disease. US PARACENTESIS, HISTORY: ASCITES PROCEDURE: Informed consent was obtained. The patient was placed in supine position. A limited localization ultrasound of the abdomen was obtained, and the skin site over the largest pocket of fluid was marked and entry site was prepped with chlorhexidine which was allowed to dry and draped in the usual sterile fashion. Time out was performed. Following administration of 1% lidocaine local anesthetic, a 5 Amharic centesis needle catheter was percutaneously inserted into the peritoneal collection until fluid was aspirated. The catheter was advanced into the fluid collection and the needle removed. About 6400 cc of fluid was aspirated . The catheter was then removed and a sterile dressing applied. No immediate complication was identified. FINDINGS: Limited ultrasound imaging demonstrates moderate ascites. Aspirated fluid was clear and serous. IMPRESSION: US-guided paracentesis with 6.4L removed. Condition at Discharge: Stable Final Diagnosis/Problems List Acute decompensated liver cirrhosis with massive ascites,( MELD-Na score of 24 points. 14-15%estimated mortality on 90 days). 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 Activity: No Restrictions, As Tolerated Follow Up/Referral: F/U with her PCP in 1 week Medications: lactulose 30cc daily for 10 days spironolactone 100mg daily po furosemide 40mg daily po Discharge Statement: "Patient was advised to return to the ER or call 911 if any headaches, dizziness, shortness of breath, chest pain, abdominal pain, bleeding, fevers, or worsening of medical condition. Patient was counseled about treatment plan, medications, possible side effects, patientverbalized understanding. All questions were answered to the best of my ability. 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
[2025-01-12] MEDS ORDERED: LACT10PA2 PO (12:00)
[2025-01-12] MEDS ORDERED: FURO40TA4 PO (12:00)
[2025-01-12] MEDS ORDERED: SPIR100T4 PO (12:00)
--- NOTE | 2025-01-12 20:37 | DVHINCON2 ---
Date of service: Jan 11, 2025 Referring Physician Marv Duque MD Reason for Consultation Hyponatremia History of Present Illness Joycelyn Ames is a 70-year-old F with Past Medical History pertinent for Liver cirrhosis with recurrent paracentesis, Hypertension and Legally blind of the left eye who presented to the hospital due to severe abdominal distention associated with shortness of breath. Patient also reported bilateral lower extremity edema extending all the way to the abdomen. Patient underwent paracentesis with IR, having 6.4 L of fluid removed. Patient denies any current abdominal pain, or significant distention. Reports feeling slightly better. Na this morning is 132. Allergies: Coded Allergies: Vitamin K (Verified Allergy, Severe, 11/13/23) Ketamine (Verified Allergy, Unknown, 02/21/24) Home Meds Active Scripts Furosemide (Furosemide) 40 Mg Tab, 1 TAB PO DAILY for 30 Days, #30 TAB 5 Refills Prov:GREYSON RICHARDS RESIDENT 01/12/25 Spironolactone (Spironolactone) 100 Mg Tab, 1 TAB PO DAILY for 30 Days, #30 TAB 11 Refills Prov:GREYSON RICHARDS RESIDENT 01/12/25 Lactulose (Lactulose) 10 Gm Cody, 10 GM PO DAILY for 10 Days, #10 PACK Prov:GREYSON RICHARDS RESIDENT 01/12/25 Reported Medications Lactulose (Lactulose) 10 Gm/15 Ml Shreya, 15 ML PO TID PRN for LIVER 02/19/24 Discontinued Reported Medications Furosemide (Furosemide) 20 Mg Tab, 20 MG PO DAILY for 30 Days, MG 04/26/24 Discontinued Scripts Spironolactone (Spironolactone) 100 Mg Tab, 1 TAB PO DAILY for 60 Days, #60 TAB 11 Refills Prov:DELBERT ROBLES MD 09/26/24 Spironolactone (Aldactone) 25 Mg Tab, 1 TAB PO DAILY, #30 TAB 5 Refills Prov:SUBHASH BENEDICT MD 01/02/24 Current Medications Current Medications Medications (Trade) Dose Ordered Sig/Luis A Route PRN Reason Start Time Stop Time Status Last Admin Lactulose 45 ml TID PO 01/11/25 22:00 01/11/25 15:14 DC Family History: FH: cancer G8 SISTER Review of Systems Constitutional: Denies weight loss, fever and chills. HEENT: Denies changes in vision and hearing. Respiratory: Denies shortness of breath and cough Cardiovascular: Denies chest discomfort or palpitations GI: Denies abdominal pain, nausea, vomiting and diarrhea. : Denies dysuria and urinary frequency. Musculoskeletal: Denies myalgias and joint pain Skin: Denies rash and pruritus. Neurological: Denies dizziness, headache, vision or hearing problems H&P Exam Vital Signs/I&O Vital Sign Date Time Temp Pulse Resp B/P (MAP) Pulse Ox O2 Delivery O2 Flow Rate FiO2 01/12/25 14:44 98.3 96 18 96 01/12/25 12:53 112/59 (76) 01/12/25 08:00 Room Air* 0 21 Intake and Output 01/11/25 01/12/25 19:00 07:00 Intake Total 325 ml 1020 ml Balance 325 ml 1020 ml Intake Oral 325 ml 520 ml Blood Product 250 ml Other 250 ml # Voids 3 2 # Bowel Movements 1 1 Physical Exam Vitals and nursing notes reviewed. General: In no acute distress. HEENT: Normocephalic, atraumatic, moist mucous membranes Respiratory/pulmonary: Clear lungs bilaterally, no associated crackles or wheezes. Cardiovascular: Normal heart sounds S1 and S2 with no associated murmurs Abdomen: Mild abdominal distention. Non-tender. Soft. Normal BS Extremities: Mild bilateral lower extremity edema 2+. Skin: No rashes. Warm and dry. Neurological: Alert and oriented in person, place and time. Intact cranial nerves with no focal neurologic deficits Labs/Diagnostic Data Labs/Diagnostic Data Laboratory Tests Test 01/12/25 11:58 01/12/25 08:05 01/11/25 13:05 01/11/25 05:17 Range/Units Ammonia 61 H 119 *H 11-32 umol/L White Blood Count 2.9 L 1.5 #*L 4.4-10.8 10^3/uL Red Blood Count 2.44 L 2.28 L 4.0-5.20 10^6/uL Hemoglobin 9.0 L 8.3 #L 12.2-16.2 g/dL Hematocrit 25.8 L 23.9 #L 36.0-46.0 % Mean Corpuscular Volume 105.4 H 104.7 H 80.0-100.0 fL Mean Corpuscular Hemoglobin 36.7 H 36.2 H 28.0-32.0 pg Mean Corpuscular Hemoglobin Concent 34.8 34.6 32.0-36.0 g/dL Red Cell Distribution Width 21.7 H 21.9 H 11.8-14.3 % Platelet Count 25 L 10 #*L 140-450 10^3/uL Mean Platelet Volume 10.2 9.2 6.9-10.8 fL Neutrophils (%) (Auto) 70.2 37.0-80.0 % Lymphocytes (%) (Auto) 8.2 L 10.0-50.0 % Monocytes (%) (Auto) 19.3 H 0.0-12.0 % Eosinophils (%) (Auto) 2.0 0.0-7.0 % Basophils (%) (Auto) 0.3 0.0-2.0 % Neutrophils # (Auto) 2.1 1.6-8.6 10 ^3/uL Lymphocytes # (Auto) 0.2 L 0.4-5.4 10 ^3/uL Monocytes # (Auto) 0.6 0-1.3 10 ^3/uL Eosinophils # (Auto) 0.1 0-0.8 10 ^3/uL Basophils # (Auto) 0 0-0.2 10 ^3/uL Nucleated Red Blood Cells 0.0 % Sodium Level 133 L 132 L 136-145 mmol/L Potassium Level 4.4 4.5 3.5-5.1 mmol/L Chloride Level 102 101 98-107 mmol/L Carbon Dioxide Level 25 24 20-31 mmol/L Anion Gap 6 7 5-15 Blood Urea Nitrogen 16 18 9-23 mg/dL Creatinine 0.91 0.96 0.550-1.02 mg/dL Glomerular Filtration Rate Calc 69 64 >90 mL/min BUN/Creatinine Ratio 17.6 18.8 10.0-20.0 Serum Glucose 94 99 74-106 mg/dL Calcium Level 8.3 L 8.1 L 8.7-10.4 mg/dL Differential Total Cells Counted 100.0 100 Neutrophils % (Manual) 72 37.0-80.0 Band Neutrophils % (Manual) 1 Lymphocytes % (Manual) 11 10.0-50.0 Monocytes % (Manual) 14 H 0-12 Eosinophils % (Manual) 2 0-7 Basophils % (Manual) 0 0.0-2.0 Metamyelocytes % (manual) 0 Myelocytes % (Manual) 0 Promyelocytes % (Manual) 0 Blast Cells % (Manual) 0 Reactive Lymphocytes 0 Platelet Estimate Decreased Anisocytosis (manual) Slight Macrocytosis Slight Test 01/10/25 12:52 01/10/25 11:10 01/10/25 05:08 01/09/25 19:31 Range/Units Tumor Marker Alpha Fetoprotein 2.3 0.0-9.2 ng/mL Body Fluid Source Ascities fluid Body Fluid pH 9.0 Body Fluid WBC (Manual) 21 0-200 CUMM Body Fluid RBC (Manual) 1057 0-2000 CUMM Body Fluid Mononuclear Cells 88 % Body Fluid Polymorphonuclear Cells 12 0-25 % Body Fluid Glucose 113 . mg/dL Body Fluid Total Protein 0.4 . g/dL Body Fluid Lactate Dehydrogenase 31 . IU/L White Blood Count 2.8 L 4.4-10.8 10^3/uL Red Blood Count 2.93 L 4.0-5.20 10^6/uL Hemoglobin 10.7 L 12.2-16.2 g/dL Hematocrit 30.4 L 36.0-46.0 % Mean Corpuscular Volume 103.8 H 80.0-100.0 fL Mean Corpuscular Hemoglobin 36.4 H 28.0-32.0 pg Mean Corpuscular Hemoglobin Concent 35.0 32.0-36.0 g/dL Red Cell Distribution Width 21.9 H 11.8-14.3 % Platelet Count 34 L 140-450 10^3/uL Mean Platelet Volume 10.2 6.9-10.8 fL Neutrophils (%) (Auto) 37.0-80.0 % Lymphocytes (%) (Auto) 10.0-50.0 % Monocytes (%) (Auto) 0.0-12.0 % Basophils (%) (Auto) 0.0-2.0 % Neutrophils # (Auto) 1.6-8.6 10 ^3/uL Lymphocytes # (Auto) 0.4-5.4 10 ^3/uL Monocytes # (Auto) 0-1.3 10 ^3/uL Differential Total Cells Counted 100.0 100 Neutrophils % (Manual) 71 37.0-80.0 Band Neutrophils % (Manual) 0 Lymphocytes % (Manual) 7 L 10.0-50.0 Monocytes % (Manual) 18 H 0-12 Eosinophils % (Manual) 4 0-7 Basophils % (Manual) 0 0.0-2.0 Metamyelocytes % (manual) 0 Myelocytes % (Manual) 0 Promyelocytes % (Manual) 0 Blast Cells % (Manual) 0 Reactive Lymphocytes 0 Platelet Estimate Decreased Anisocytosis (manual) Slight Macrocytosis Slight Sodium Level 130 L 136-145 mmol/L Potassium Level 4.2 3.5-5.1 mmol/L Chloride Level 100 98-107 mmol/L Carbon Dioxide Level 25 20-31 mmol/L Anion Gap 5 5-15 Blood Urea Nitrogen 17 9-23 mg/dL Creatinine 0.91 0.550-1.02 mg/dL Glomerular Filtration Rate Calc 69 >90 mL/min BUN/Creatinine Ratio 18.7 10.0-20.0 Serum Glucose 104 74-106 mg/dL Calcium Level 8.0 L 8.7-10.4 mg/dL Total Bilirubin 5.2 H 0.2-1.0 mg/dL Aspartate Amino Transferase (AST) 63 H 13-40 U/L Alanine Aminotransferase (ALT) 52 H 7-40 U/L Alkaline Phosphatase 123 H 46-116 U/L Total Protein 6.1 5.7-8.2 g/dL Albumin 2.1 L 3.2-4.8 g/dL Triglycerides Level 38 < 150 mg/dL Cholesterol Level 99 < 200 mg/dL LDL Cholesterol 49 < 100 mg/dL HDL Cholesterol 29 L 40-59 mg/dL Hepatitis A IgM Antibody Negative Hepatitis B Surface Antigen Negative Negative Hepatitis B Core IgM Antibody Negative Negative Hepatitis C Antibody Negative Negative Ammonia 34 H 11-32 umol/L Test 01/09/25 18:12 01/09/25 16:53 01/09/25 16:27 Range/Units Troponin I High Sensitivity 5 6 </=34 ng/L White Blood Count 3.1 L 4.4-10.8 10^3/uL Red Blood Count 3.08 L 4.0-5.20 10^6/uL Hemoglobin 11.1 L 12.2-16.2 g/dL Hematocrit 32.2 L 36.0-46.0 % Mean Corpuscular Volume 104.6 H 80.0-100.0 fL Mean Corpuscular Hemoglobin 36.2 H 28.0-32.0 pg Mean Corpuscular Hemoglobin Concent 34.6 32.0-36.0 g/dL Red Cell Distribution Width 21.6 H 11.8-14.3 % Platelet Count 84 L 140-450 10^3/uL Mean Platelet Volume 9.3 6.9-10.8 fL Neutrophils (%) (Auto) 70.8 37.0-80.0 % Lymphocytes (%) (Auto) 9.6 L 10.0-50.0 % Monocytes (%) (Auto) 15.8 H 0.0-12.0 % Eosinophils (%) (Auto) 3.6 0.0-7.0 % Basophils (%) (Auto) 0.2 0.0-2.0 % Neutrophils # (Auto) 2.2 1.6-8.6 10 ^3/uL Lymphocytes # (Auto) 0.3 L 0.4-5.4 10 ^3/uL Monocytes # (Auto) 0.5 0-1.3 10 ^3/uL Eosinophils # (Auto) 0.1 0-0.8 10 ^3/uL Basophils # (Auto) 0 0-0.2 10 ^3/uL Nucleated Red Blood Cells 0.1 % Platelet Estimate Decreased Clumped Platelets Few Large Platelets Few Anisocytosis (manual) Slight Microcytosis Macrocytosis Slight Prothrombin Time 18.5 H 9.3-11.8 sec Prothrombin Time INR 1.86 H 0.9-1.15 Activated Partial Thromboplast Time 40.3 H 24.5-34.5 SEC Sodium Level 132 L 136-145 mmol/L Potassium Level 4.4 3.5-5.1 mmol/L Chloride Level 100 98-107 mmol/L Carbon Dioxide Level 25 20-31 mmol/L Anion Gap 7 5-15 Blood Urea Nitrogen 19 9-23 mg/dL Creatinine 0.94 0.550-1.02 mg/dL Glomerular Filtration Rate Calc 66 >90 mL/min BUN/Creatinine Ratio 20.2 H 10.0-20.0 Serum Glucose 122 H 74-106 mg/dL Calcium Level 8.0 L 8.7-10.4 mg/dL Total Bilirubin 6.3 H 0.2-1.0 mg/dL Aspartate Amino Transferase (AST) 74 H 13-40 U/L Alanine Aminotransferase (ALT) 58 H 7-40 U/L Alkaline Phosphatase 130 H 46-116 U/L B-Type Natriuretic Peptide 105.65 0-100 pg/mL Total Protein 6.2 5.7-8.2 g/dL Albumin 2.2 L 3.2-4.8 g/dL Urine Color Yellow Yellow Urine Clarity Clear Clear Urine pH 6.0 5.0-9.0 Urine Specific [place] 1.009 1.001-1.035 Urine Protein Negative Negative Urine Ketones Negative Negative Urine Blood Negative Negative /uL Urine Nitrite Negative Negative Urine Bilirubin Negative Negative Urine Urobilinogen Normal Negative mg/dL Urine Leukocyte Esterase Negative Negative /uL Urine RBC 2 0 - 4 /hpf Urine Microscopic WBC 2 0-5 /HPF Urine Squamous Epithelial Cells Few <5 /hpf Urine Calcium Oxalate Crystals Many None Seen Urine Bacteria Few H None Seen /hpf Urine Hyaline Casts Few 0 - 2 /lpf Urine Glucose Normal Normal mg/dL Assessment Abdominal distention with ascites Liver cirrhosis Pancytopenia secondary to the above Transaminitis Severe protein malnutrition with associated hypoalbuminemia Hyperammonemia Hyponatremia Plan/Recommendation Agreement with your ongoing assessment and plan of care. S/p paracentesis. Daily lab monitoring; electrolyte replacement prn. Diuretics with Lasix 40 mg PO daily. Pain management prn. Additional plan as per the hospital course. Plan discussed with: Patient, Other (RN) WYATT VERONICA DO Jan 12, 2025 20:37
--- NOTE | 2025-01-12 20:38 | DVHPN2 ---
Progress Note - Dictate Date Seen: Jan 12, 2025 Has the PT tested + for MRSA If YES, has PT been informed?: No Medical Necessity Reason Pt with a Central, PICC or Fol: No Subjective Patient was seen and evaluated in follow up. No acute events overnight. Patient reports feeling much better from admission. Discharge planning in progress. vital signs Vital Sign Date Time Temp Pulse Resp B/P (MAP) Pulse Ox O2 Delivery O2 Flow Rate FiO2 01/12/25 14:44 98.3 96 18 96 01/12/25 12:53 112/59 (76) 01/12/25 08:00 Room Air* 0 21 Total Intake and Output 01/11/25 01/11/25 01/12/25 15:00 23:00 07:00 Intake Total 325 ml 1020 ml Balance 325 ml 1020 ml objective Vitals and nursing notes reviewed. General: In no acute distress. HEENT: Normocephalic, atraumatic, moist mucous membranes Respiratory/pulmonary: Clear lungs bilaterally, no associated crackles or wheezes. Cardiovascular: Normal heart sounds S1 and S2 with no associated murmurs Abdomen: Mild abdominal distention. Non-tender. Soft. Normal BS Extremities: Bilateral lower extremity edema 2+, improved. Skin: No rashes. Warm and dry. Neurological: Alert and oriented in person, place and time. Intact cranial nerves with no focal neurologic deficits laboratory and microbiology Laboratory Tests 01/12/25 08:05 Test 01/12/25 08:05 Range/Units Serum Glucose 94 74-106 mg/dL Problem List Abdominal distention with ascites Liver cirrhosis Pancytopenia secondary to the above Transaminitis Severe protein malnutrition with associated hypoalbuminemia Hyperammonemia Hyponatremia Assessment/Plan DC planning. Cleared for discharge from Nephrology standpoint. Advised to follow up with PCP. Plan discussed with: Patient, Other (RN) CC Plasma Assessment Blood Product Administration S: [id number] VERONICAWYATT DO Jan 12, 2025 20:38
== END 2025-01-12 15:15 | disposition home or self-care (01) ==
LOC: ER 16:11 → OVERFLOW 19:08 → EAST 01-10 15:23
PROVIDERS: ADMIT Internal Medicine; ATTEND Internal Medicine
PROC: 0W9G3ZZ Drainage of Peritoneal Cavity, Percutaneous Approach (ICD-10-PCS; principal; 2025-01-10)
DX: K74.60 Unspecified cirrhosis of liver (principal); G93.41 Metabolic encephalopathy; D61.818 Other pancytopenia; E43 Unspecified severe protein-calorie malnutrition; E72.20 Disorder of urea cycle metabolism, unspecified; R18.8 Other ascites; E88.09 Other disorders of plasma-protein metabolism, not elsewhere classified; E87.1 Hypo-osmolality and hyponatremia; Z68.41 Body mass index [BMI] 40.0-44.9, adult; H40.9 Unspecified glaucoma; D50.9 Iron deficiency anemia, unspecified; I10 Essential (primary) hypertension; H54.8 Legal blindness, as defined in USA; K80.20 Calculus of gallbladder without cholecystitis without obstruction; Z91.048 Other nonmedicinal substance allergy status; Z79.899 Other long term (current) drug therapy
CPT/HCPCS: 36415; 49083; 71045; 74176; 76942; 80048; 80053; 80061; 80074; 81001; 82105; 82140; 83880; 83986; 84484; 85007; 85025; 85027; 85610; 85730; 86850; 86900; 86901; 87205; 89051; 93005; G0378; P9047

== ENCOUNTER → 2025-01-24 | Outpatient (CLI) | payer MEDICAID ==
[~2025-01-24] MED LIST changes: +ALBUMIN 25% 100 ML IV ONE; -FURO20TA3 PO; +FURO40TA4 PO; +LACT10PA2 PO; -SPIR25TA PO
[2025-01-24] MEDS: ALBUMIN 25% 100 ML IV ONE (10:39)
--- NOTE | 2025-01-24 12:24 | DVH ---
US PARACENTESIS, HISTORY: ASCITES PROCEDURE: Informed consent was obtained. The patient was placed in supine position. A limited locali zation ultrasound of the abdomen was obtained, and the skin site over the largest pocket of fluid was marked and entry site was prepped with chlorhexidine which was allowed to dry and draped in the usua l sterile fashion. Time out was performed. Following administration of 1% lidocaine local anesthetic, a 5 [place] centesis needle catheter was percutaneously inserted into the peritoneal collection until fluid was aspirated. The catheter was advanced into the fluid collection [place] [id number] cc of fluid was aspirated . The catheter was then removed and a sterile dressing applied. 25 gm of albumin colloid infusion was given IV. No immediate complication was identified. FINDINGS: Limited ultrasound imaging demonstrates moderate ascites. Aspirated fluid was clear and ser ous. IMPRESSION: US-guided paracentesis with 10.4L removed.
[2025-01-24 14:56] LABS: Body Fluid Red Blood Cells 1177 CUMM (0-2000); Body Fluid White Blood Cells 125 CUMM (0-200)
[2025-01-25 13:08] LABS: Protein, Body Fluid 0.4 g/dL (.)
== END | disposition home or self-care (01) ==
LOC: US 09:13
DX: R18.8 Other ascites (principal); Z98.891 History of uterine scar from previous surgery; Z87.891 Personal history of nicotine dependence; Z80.9 Family history of malignant neoplasm, unspecified
CPT/HCPCS: 49083; 83986; 87205; 89051; C1729; P9047; 76705; 76942

== ENCOUNTER 2025-03-13 09:33 | Outpatient (CLI) | payer MEDICAID ==
[~2025-03-13 09:33] MED LIST changes: -ALBUMIN 25% 100 ML IV ONE
--- NOTE | 2025-03-13 10:49 | DVH ---
US PARACENTESIS HISTORY: ASCITES PROCEDURE: Informed consent was obtained. The patient was placed in supine position. A limited locali zation ultrasound of the abdomen was obtained, and the skin site over the largest pocket of fluid was marked and entry site was prepped with chlorhexidine which was allowed to dry and draped in the usua l sterile fashion. Time out was performed. Following administration of 1% lidocaine local anesthetic, a 5 [place] centesis needle catheter was percutaneously inserted into the peritoneal collection until fluid was aspirated. The catheter was advanced into the fluid collection [place] [id number] cc of fluid was aspirated . The catheter was then removed and a sterile dressing applied. No immediate complication was identified. FINDINGS: Limited ultrasound imaging demonstrates large ascites. IMPRESSION: US-guided paracentesis with 11.3L removed by dr. murdock.
[2025-03-13 14:53] LABS: Body Fluid White Blood Cells 878 CUMM (0-200)
[2025-03-13 14:54] LABS: Body Fluid Red Blood Cells 93 CUMM (0-2000)
[2025-03-14 12:07] LABS: Protein, Body Fluid 0.5 g/dL (.)
== END 2025-03-13 17:00 | disposition home or self-care (01) ==
LOC: US 09:33
PROVIDERS: ATTEND Internal Medicine
DX: R18.8 Other ascites (principal); K74.60 Unspecified cirrhosis of liver; I85.10 Secondary esophageal varices without bleeding; K75.81 Nonalcoholic steatohepatitis (NASH); C22.0 Liver cell carcinoma; I81 Portal vein thrombosis
CPT/HCPCS: 49083; 76942; 83986; 87205; 89051; C1729

== ENCOUNTER 2025-03-22 22:56 | Inpatient (IN) | payer MEDICAID ==
[~2025-03-22] VITALS: Ht 152.4 cm; Wt 53.1 kg
--- NOTE | 2025-03-22 23:24 | ED.PDOC ---
History of Present Illness HPI Comments per pt's son and EMS, pt has cirrhosis from fatty liver and is on the liver transplant list at [facility]. she has a history of ascites. had paracentesis done on 02/09, but abdomen is more distended with sob on lying flat. per chart review she was admitted on 01/09/25 for ascites, 04/26/24, 03/18/24, 12/29/23 for ascites. 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 she is here because for the lat 72 hours she has pain and swelling of the left leg Time Seen by MD: 23:00 Primary Care Provider: UNKNOWN Reviewed Notes: Nurses Notes, Plastic Panel Installer Notes, Medications, Allergies Allergies: Coded Allergies: Vitamin K (Verified Allergy, Severe, 11/13/23) Ketamine (Verified Allergy, Unknown, 02/21/24) Home Meds Active Scripts Furosemide (Furosemide) 40 Mg Tab, 1 TAB PO DAILY for 30 Days, #30 TAB 5 Refills Prov:GREYSON RICHARDS RESIDENT 01/12/25 Spironolactone (Spironolactone) 100 Mg Tab, 1 TAB PO DAILY for 30 Days, #30 TAB 11 Refills Prov:GREYSON RICHARDS RESIDENT 01/12/25 Lactulose (Lactulose) 10 Gm Cody, 10 GM PO DAILY for 10 Days, #10 PACK Prov:GREYSON RICHARDS RESIDENT 01/12/25 Reported Medications Lactulose (Lactulose) 10 Gm/15 Ml Shreya, 15 ML PO TID PRN for LIVER 02/19/24 Information Source: Patient, Relative (Child), Emergency Med Personnel, DVH Medical Record, Past Medical Record, PMD Records Mode of Arrival: EMS Severity: Mild Timing: Days Duration: Since onset Past Medical History PAST MEDICAL HISTORY: HTN, Liver Past Medical History (Other): cirrhosis, fatty liver, HCA, brain aeurisms, left eye blindness, ascites, pancytopenia, encephalopathy Surgical History (Other): brain aneurism coils COMMODITY LEAD History: No Pertinent COMMODITY LEAD History Family History Family History: Reviewed,noncontributory to illness Social History Smoker: Non-Smoker Alcohol: Denies ETOH Use Drugs: Denies Drug Use Lives In: Home Constitutional: denies: chills, diaphoresis, fatigue, fever, malaise, sweats, weakness, others EENTM: denies: blurred vision, double vision, ear bleeding, ear discharge, ear drainage, ear pain, ear ringing, eye pain, eye redness, hearing loss, mouth pain, mouth swelling, nasal discharge, nose bleeding, nose congestion, nose pain, photophobia, tearing, throat pain, throat swelling, voice changes, others Respiratory: denies: cough, hemoptysis, orthopnea, SOB at rest, shortness of breath, SOB with excertion, stridor, wheezing, others Cardiovascular: reports: edema; denies: chest pain, dizzy spells, diaphoresis, Dyspnea on exertion, irregular heart beat, left arm pain, lightheadedness, palpitations, PND, syncope, others Gastrointestinal: denies: abdomen distended, abdominal pain, blood streaked bowels, constipated, diarrhea, dysphagia, difficulty swallowing, hematemesis, melena, nausea, poor appetite, poor fluid intake, rectal bleeding, rectal pain, vomiting, others Genitourinary: denies: abnormal vagina bleeding, burning, dyspareunia, dysuria, flank pain, frequency, hematuria, incontinence, pain, , vagina discharge, urgency, others Neurological: denies: dizziness, fainting, headache, left sided numbness, left sided weakness, numbness, paresthesia, pre-existing deficit, right sided numbness, right sided weakness, seizure, speech problems, tingling, tremors, weakness, others Musculoskeletal: reports: joint swelling, muscle pain; denies: back pain, gout, joint pain, muscle stiffness, neck pain, others Integumetry: denies: bruises, change in color, change in hair/nails, dryness, laceration, lesions, lumps, rash, wounds, others Allergic/Immunocompromised: denies: Difficulty Healing, Frequent Infections, Hives, Itching, others Hematologic/Lymphatic: denies: anemia, blood clots, easy bleeding, easy bruising, swollen glands, others Psychiatric: denies: anxiety, bipolar disorder, depression, hopeless, panic disorder, schizophrenia, sleepless, suicidal, others All Other Systems: Reviewed and Negative Physical Exam General Appearance: No Apparent Distress, Normal HEENT: Normal ENT Inspection, Pharynx Normal, TMs Normal, Other (left eye with opacified cornea) Neck: Full Range of Motion, Non-Tender, Normal, Normal Inspection Respiratory: Chest Non-Tender, Lungs Clear, No Accessory Muscle Use, No Respiratory Distress, Normal Breath Sounds Cardiovascular: No Edema, No JVD, No Murmur, No Gallop, Normal Peripheral Pulses, Regular Rate/Rhythm Breast Exam: Deferred Gastrointestinal: Distended, No Organomegaly, Non Tender, No Pulsatile Mass, Normal Bowel Sounds, Soft Genitalia: Deferred Pelvic: Deferred Rectal: Deferred Extremities: Normal capillary refill, Normal inspection, Normal range of motion, Swelling (right leg and calf 3+ pitting edema), Tender Musculoskeletal : Apperance: Normal Neurologic: Alert, two needle machine operator II-XII nml as Tested, No Motor Deficits, Normal Affect, Normal Mood, No Sensory Deficits Cerebellar Function: Normal Reflexes: Normal Skin: Dry, Normal Color, Warm Lymphatic: No Adenopathy Was a procedure done? Was a procedure done?: No Differential Dx Considerations may include: dvt, venous insufficiency, venous occlusion, 3rd spacing, hypoalbuminemia, renal failure, liver failure, ascites, chf X-Ray, Labs, Meds, VS Lab Test 03/22/25 23:20 Range/Units White Blood Count 6.5 4.4-10.8 10^3/uL Red Blood Count 3.04 L 4.0-5.20 10^6/uL Hemoglobin 10.9 L 12.2-16.2 g/dL Hematocrit 32.2 L 36.0-46.0 % Mean Corpuscular Volume 105.9 H 80.0-100.0 fL Mean Corpuscular Hemoglobin 36.0 H 28.0-32.0 pg Mean Corpuscular Hemoglobin Concent 34.0 32.0-36.0 g/dL Red Cell Distribution Width 15.8 H 11.8-14.3 % Platelet Count 40 L 140-450 10^3/uL Mean Platelet Volume 9.2 6.9-10.8 fL Neutrophils (%) (Auto) 78.9 37.0-80.0 % Lymphocytes (%) (Auto) 3.1 L 10.0-50.0 % Monocytes (%) (Auto) 16.2 H 0.0-12.0 % Eosinophils (%) (Auto) 0.4 0.0-7.0 % Basophils (%) (Auto) 1.4 0.0-2.0 % Neutrophils # (Auto) 5.1 1.6-8.6 10 ^3/uL Lymphocytes # (Auto) 0.2 L 0.4-5.4 10 ^3/uL Monocytes # (Auto) 1.0 0-1.3 10 ^3/uL Eosinophils # (Auto) 0 0-0.8 10 ^3/uL Basophils # (Auto) 0.1 0-0.2 10 ^3/uL Nucleated Red Blood Cells 0.0 % Platelet Estimate Decrea Clumped Platelets Few Large Platelets Few Macrocytosis Slight Sodium Level 132 L 136-145 mmol/L Potassium Level 5.3 H 3.5-5.1 mmol/L Chloride Level 101 98-107 mmol/L Carbon Dioxide Level 23 20-31 mmol/L Anion Gap 8 5-15 Blood Urea Nitrogen 36 H 9-23 mg/dL Creatinine 1.34 H 0.550-1.02 mg/dL Glomerular Filtration Rate Calc 43 >90 mL/min BUN/Creatinine Ratio 26.9 H 10.0-20.0 Serum Glucose 108 H 74-106 mg/dL Calcium Level 7.8 L 8.7-10.4 mg/dL Total Bilirubin 5.0 H 0.2-1.0 mg/dL Aspartate Amino Transferase (AST) 69 H <34 U/L Alanine Aminotransferase (ALT) 74 H 7-40 U/L Alkaline Phosphatase 125 H 46-116 U/L Total Protein 6.4 5.7-8.2 g/dL Albumin 2.3 L 3.2-4.8 g/dL Time of 1ST Reevaluation: 00:35 Reevaluation 1ST: Unchanged Patient Education/Counseling: Diagnosis, Treatment, Prognosis, Need For Follow Up Family Education/Counseling: Diagnosis, Treatment, Prognosis, Need For Follow Up Comments pt has large ascites causing her diaphragm to be encroached and decreased in lung capacity. this is the cause of her sob, her right leg also has edema and discomfort, likely related to the 3rd spacing. US is negative for DVT. she will be admitted for paracentesis SEPSIS Sepsis Screen Physician Orders Chest Portable (03/22/25 23:05) Rt Lower Dvt (03/22/25 23:05) Laboratory Tests Test 03/22/25 23:20 White Blood Count 6.5 10^3/uL (4.4-10.8) Departure 1 Departure Time of Disposition: 00:37 Impression: Primary Impression: Abdominal ascites Qualified Codes: R18.8 - Other ascites Additional Impressions: Acute dyspnea Leg edema, right Cirrhosis Qualified Codes: K74.69 - Other cirrhosis of liver Anemia Qualified Codes: D64.9 - Anemia, unspecified Renal insufficiency Transaminitis Disposition: ADMITTED INPATIENT Admit to: Med Surg Condition: Serious Discharged With: Self, Relative Critical Care Note Critical Care Time?: Yes (55 min-critical care time only) Critical care comment: Due to concerns for patients condition deteriorating, the care required my highest level of attention and readiness to intervene. I assessed the patient, reviewed the medical records, ordered the appropriate tests and treatments, then reassessed for results and responsiveness. I communicated with medical personnel and consultants and formulated a plan of care. Total critical care time excludes any procedures Stability Stability form required: AUDREY Garza MD Mar 22, 2025 23:24
[2025-03-22 23:31] LABS: Hematocrit 32.2 % (36.0-46.0); Hemoglobin 10.9 g/dL (12.2-16.2); Mean Corpuscular Hemoglobin 36.0 pg (28.0-32.0); Mean Corpuscular Volume 105.9 fL (80.0-100.0); Nucleated Red Blood Cells % 0.0 %
[2025-03-22 23:47] LABS: Alanine Aminotransferase 74 U/L (7-40); Albumin 2.3 g/dL (3.2-4.8); Alkaline Phosphatase 125 U/L (46-116); Anion Gap 8 (5-15); BUN/Creatinine Ratio 26.9 (10.0-20.0); Bilirubin, Total 5.0 mg/dL (0.2-1.0); Blood Urea Nitrogen 36 mg/dL (9-23); Calcium 7.8 mg/dL (8.7-10.4); Carbon Dioxide 23 mmol/L (20-31); Chloride 101 mmol/L (98-107); Glucose 108 mg/dL (74-106); Potassium 5.3 mmol/L (3.5-5.1); Sodium 132 mmol/L (136-145); Total Protein 6.4 g/dL (5.7-8.2)
[2025-03-23 00:12] LABS: Macrocytosis Slight
--- NOTE | 2025-03-23 00:26 | DVH ---
RIGHT LOWER EXTREMITY VENOUS DOPPLER ULTRASOUND CLINICAL HISTORY: Swelling. r/o dvt COMPARISON: None TECHNIQUE: Grayscale ultrasound with compression, Color Doppler flow and duplex spectral Doppler son ography of the right lower extremity femoral popliteal deep venous system is performed. FINDINGS: Right common femoral vein: Negative. Right greater saphenous vein: Negative. Right deep femoral vein: Negative. Right femoral vein: Negative. Right popliteal vein: Negative. Other: Visualized popliteal trifurcation and posterior tibial vein demonstrate color flow. Subcutaneo us edema noted. IMPRESSION: No sonographic evidence of deep venous thrombosis in the right lower extremity at this time. Subcutaneous edema.
--- NOTE | 2025-03-23 00:27 | DVH ---
EXAMINATIONS: AP portable chest radiograph CLINICAL HISTORY: sob COMPARISON: XY CHEST PORTABLE on DOS: 01/09/25 FINDINGS: Mild diffuse interstitial prominence. No lobar consolidation is identified. No sizable pleural effusi ons or pneumothorax. Aortic calcifications. The cardiomediastinal silhouette otherwise appears withi n normal limits given technique. IMPRESSION: Interstitial prominence is relatively nonspecific but can be seen with edema, reactive airway changes as well as atypical / viral infection. Please correlate clinically.
[2025-03-23 00:30] VITALS: PULSE 99; RESP 12; O2SAT 97
[2025-03-23 01:10] LABS: INR 1.97 (0.9-1.15); Partial Thromboplastin Time 39.6 SEC (24.5-34.5); Prothrombin Time 19.5 sec (9.3-11.8)
[2025-03-23] MEDS ORDERED: ONDANSETRON HCL 4 MG/2 ML VIAL IV PRN (04:45)
[2025-03-23] MEDS ORDERED: IBUPROFEN 400 MG TAB PO PRN (04:45)
[2025-03-23 05:47] LABS: Hematocrit 30.4 % (36.0-46.0); Hemoglobin 10.4 g/dL (12.2-16.2); Mean Corpuscular Hemoglobin 36.1 pg (28.0-32.0); Mean Corpuscular Volume 105.5 fL (80.0-100.0); Nucleated Red Blood Cells % 0.0 %
[2025-03-23 05:55] LABS: Alanine Aminotransferase 68 U/L (7-40); Albumin 2.1 g/dL (3.2-4.8); Alkaline Phosphatase 112 U/L (46-116); Anion Gap 7 (5-15); BUN/Creatinine Ratio 25.9 (10.0-20.0); Bilirubin, Total 4.5 mg/dL (0.2-1.0); Blood Urea Nitrogen 36 mg/dL (9-23); Calcium 7.7 mg/dL (8.7-10.4); Carbon Dioxide 24 mmol/L (20-31); Chloride 101 mmol/L (98-107); Glucose 130 mg/dL (74-106); Potassium 5.3 mmol/L (3.5-5.1); Sodium 132 mmol/L (136-145); Total Protein 6.0 g/dL (5.7-8.2)
[2025-03-23] MEDS ORDERED: MORPHINE SULFATE INJ 2 MG/ml SYRG IV PRN (06:00)
[2025-03-23] MEDS ORDERED: NITROGLYCERIN 0.4 MG SL TAB SL PRN (06:00)
[2025-03-23 06:16] LABS: Macrocytosis Slight
[2025-03-23] MEDS: SODIUM CHLOR 0.9% PF (SALINE LOCK) 10ML VIAL/SYR IV SCH (06:22)
--- NOTE | 2025-03-23 06:39 | DVHHP2 ---
History of Present Illness Reason for Visit: Abdominal ascites History of Present Illness The patient is a 70-year-old female with multiple past medical history including liver cirrhosis, hypertension, and ascites presented to [facility] ED with complaint of generalized weakness. Patient has liver cirrhosis and is on liver transplant list at [facility]. Patient reports symptoms progressively get worse with distended abdomen, shortness of breaths when lying flat, had paracentesis done on 02/09/2025, patient was seen and evaluated in the ED, laboratory data shows WBC 6.5, hemoglobin 10.9, hematocrit 32.2, platelets 75062, sodium 132, potassium 5.3, BUN 36, creatinine 1.34, glucose 108, calcium 7.8, AST 69, ALT 74, albumin 2.3, PT 19.5, INR 1.95, PTT 39.6, blood pressure 123/69, heart rate 93, temperature 98.4 F, O2 saturation 97% on room air. Extremity venous study showed no sonographic evidence of deep venous thrombosis in the right lower extremity at this time, subcutaneous edema present. Chest x-ray revealing interstitial prominence is relatively nonspecific but can be seen with edema, reactive airway changes as well as atypical/viral infection. Please see medication orders section in the computer. On my assessment, patient denied chest pain, no headache, no dizziness, no shortness a breath, no diarrhea, no n ausea, no vomiting, no fever, no chills. Patient was admitted for further evaluation and medical management. Past Medical History HTN, Liver cirrhosis, Fatty liver, HCA, brain aneurysm, Left eye blindness, Ascites, Pancytopenia, Encephalopathy, Past Surgical History Brain aneurism coils Family History Reviewed, noncontributory to the management of this case. Past Social History The patient lives at home, denies smoking, alcohol or illicit drugs abuse. Review of Systems Constitutional: Yes: Weakness; No: Fever, Chills, Sweats, Malaise, Other Eyes: Other (Left eye blindness); No: Pain, Vision change, Conjunctivae inflammation, Eyelid inflammation, Redness ENT: No: Ear pain, Ear discharge, Nose pain, Nose discharge, Nose congestion, Mouth pain, Mouth swelling, Throat pain, Throat swelling, Other Respiratory: No: Cough, Dry, Shortness of breath, SOB with excertion, Wheezing, Hemoptysis, Pleuritic Pain, Sputum, Wheezing, Other Cardiovascular: Edema; No: Chest Pain, Palpitations, Orthopnea, Paroxysmal Noc. Dyspnea, Lt Headedness, Other Gastrointestinal: Abdominal Pain, Other (Distended abdomen); No: Nausea, Vomiting, Diarrhea, Constipation, Melena, Hematochezia Genitourinary: No Dysuria, No Frequency, No Incontinence, No Hematuria, No Retention, No Other Musculoskeletal: other (Right lower extremity swelling); No: neck pain, shoulder pain, arm pain, back pain, hand pain, leg pain, foot pain Skin: No: Rash, Lesions, Jaundice, Bruising, Other Neurological: No: Weakness, Numbness, Incoordination, Change in speech, Confusion, Seizures, Other Allergies: Coded Allergies: Vitamin K (Verified Allergy, Severe, 11/13/23) Ketamine (Verified Allergy, Unknown, 02/21/24) Medications Current Medications Medications Dose Ordered Sig/Luis A Route Start Time Stop Time Status Last Admin Dose Admin Lactulose 30 ml Q4HR PO 03/23/25 06:00 Spironolactone 50 mg DAILY PO 03/23/25 10:00 Sodium Chloride 10 ml Q8HR IV 03/23/25 06:00 Acetaminophen/ Hydrocodone Bitart 1 tab Q4HP PRN PO 03/23/25 04:45 Ondansetron HCl 4 mg Q4HP PRN IV 03/23/25 04:45 Ibuprofen 400 mg Q6HP PRN PO 03/23/25 04:45 Exam Vital Signs Vital Signs Date Time Temp Pulse Resp B/P (MAP) Pulse Ox O2 Delivery O2 Flow Rate FiO2 03/23/25 04:00 98.5 97 14 139/75 (96) 96 98.5 03/23/25 00:30 Room Air* 0 21 General Appearance: Alert, Oriented X3, Cooperative, No acute distress HEENT: Atraumatic, PERRLA, EOMI, Mucous membr. moist/pink Respiratory: Normal air movement Cardiovascular: Regular rate, Normal S1, Normal S2, No murmurs Abdominal: Normal bowel sounds, Soft, No tenderness, No hepatospenomegaly, No masses Extremities: No clubbing, No cyanosis, Normal pulses, Other (Lower extremity tenderness/swelling) Skin: No rashes, No significant lesion Neuro: Normal speech, Normal tone, Sensation intact, Cranial nerves 3-12 NL, Reflexes 2+, Other (Generalized weakness) Psych/Mental Status: Mental status NL, Mood NL Labs/Xrays Labs Test 03/23/25 05:14 03/22/25 23:20 Range/Units White Blood Count 5.4 4.4-10.8 10^3/uL Red Blood Count 2.88 L 4.0-5.20 10^6/uL Hemoglobin 10.4 L 12.2-16.2 g/dL Hematocrit 30.4 L 36.0-46.0 % Mean Corpuscular Volume 105.5 H 80.0-100.0 fL Mean Corpuscular Hemoglobin 36.1 H 28.0-32.0 pg Mean Corpuscular Hemoglobin Concent 34.2 32.0-36.0 g/dL Red Cell Distribution Width 16.6 H 11.8-14.3 % Mean Platelet Volume 9.9 6.9-10.8 fL Neutrophils (%) (Auto) 80.2 H 37.0-80.0 % Lymphocytes (%) (Auto) 3.7 L 10.0-50.0 % Monocytes (%) (Auto) 15.8 H 0.0-12.0 % Eosinophils (%) (Auto) 0.1 0.0-7.0 % Basophils (%) (Auto) 0.2 0.0-2.0 % Neutrophils # (Auto) 4.3 1.6-8.6 10 ^3/uL Lymphocytes # (Auto) 0.2 L 0.4-5.4 10 ^3/uL Monocytes # (Auto) 0.9 0-1.3 10 ^3/uL Eosinophils # (Auto) 0 0-0.8 10 ^3/uL Basophils # (Auto) 0 0-0.2 10 ^3/uL Nucleated Red Blood Cells 0.0 % Sodium Level 132 L 136-145 mmol/L Potassium Level 5.3 H 3.5-5.1 mmol/L Chloride Level 101 98-107 mmol/L Carbon Dioxide Level 24 20-31 mmol/L Anion Gap 7 5-15 Blood Urea Nitrogen 36 H 9-23 mg/dL Creatinine 1.39 H 0.550-1.02 mg/dL Glomerular Filtration Rate Calc 41 >90 mL/min BUN/Creatinine Ratio 25.9 H 10.0-20.0 Serum Glucose 130 H 74-106 mg/dL Calcium Level 7.7 L 8.7-10.4 mg/dL Total Bilirubin 4.5 H 0.2-1.0 mg/dL Aspartate Amino Transferase (AST) 63 H <34 U/L Alanine Aminotransferase (ALT) 68 H 7-40 U/L Alkaline Phosphatase 112 46-116 U/L Total Protein 6.0 5.7-8.2 g/dL Albumin 2.1 L 3.2-4.8 g/dL Clumped Platelets Few Large Platelets Few Macrocytosis Slight Prothrombin Time 19.5 H 9.3-11.8 sec Prothrombin Time INR 1.97 H 0.9-1.15 Activated Partial Thromboplast Time 39.6 H 24.5-34.5 SEC PATIENT: RODERICK PRATTACCT: [id number] UNIT: [id number] : 1955 LOC: ER ROOM / BED: / AGE / SEX: 70 / F ADM STATUS: REG ER SERVICE 04 ORDERING PHYSICIAN: AUDREY PATRICIO MD PROCEDURE(s): RLDVT - RT Lower DVT REASON: r/o dvt ORDER NUMBER(s): [id number], ACCESSION NUMBER(s): [id number] RIGHT LOWER EXTREMITY VENOUS DOPPLER ULTRASOUND CLINICAL HISTORY: Swelling. r/o dvt COMPARISON: None TECHNIQUE: Grayscale ultrasound with compression, Color Doppler flow and duplex spectral Doppler sonography of the right lower extremity femoral popliteal deep venous system is performed. FINDINGS: Right common femoral vein: Negative. Right greater saphenous vein: Negative. Right deep femoral vein: Negative. Right femoral vein: Negative. Right popliteal vein: Negative. Other: Visualized popliteal trifurcation and posterior tibial vein demonstrate color flow. Subcutaneous edema noted. IMPRESSION: No sonographic evidence of deep venous thrombosis in the right lower extremity at this time. Subcutaneous edema. ORDERING PHYSICIAN: AUDREY PATRICIO MD PROCEDURE(s): CXRP - CHEST PORTABLE REASON: sob ORDER NUMBER(s): [id number], ACCESSION NUMBER(s): [id number] EXAMINATIONS: AP portable chest radiograph CLINICAL HISTORY: sob COMPARISON: XY CHEST PORTABLE on DOS: 01/09/25 FINDINGS: Mild diffuse interstitial prominence. No lobar consolidation is identified. No sizable pleural effusions or pneumothorax. Aortic calcifications. The cardiomediastinal silhouette otherwise appears within normal limits given technique. IMPRESSION: Interstitial prominence is relatively nonspecific but can be seen with edema, reactive airway changes as well as atypical/viral infection. Please correlate clinically. Assessment/Plan Assessment/Plan Abdominal ascites Transaminitis Elevated liver enzymes Acute dyspnea Leg edema, right Cirrhosis of liver Anemia of chronic disease Renal insufficiency Thrombocytopenia Electrolyte imbalance Generalized weakness Plan 1. Admit to telemetry unit 2. Breathing treatment 3. Pain control management 4. IV antibiotic management 5. Management of fluids and electrolytes 6. Consultation for hospitalist 7. Diagnostic test extremity venous study 8. DVT prophylaxis-on SCD RLE 9. Repeat labs CBC, CMP in a.m. 10. Home medication reviewed and reconciled 11. Continue with current medical management 12. Treatment plan discussed with patient and RN. Patient verbalized understanding. Plan discussed with: Patient, Other (RN) My Orders Orders - CALLIE DAVILA DNP Procedure Category Date Status Time Complete Blood Count LAB 03/23/25 In Process 04:31 Lactulose Oral PHA 03/23/25 In Process 06:00 Paracentesis US 03/23/25 Logged 04:31 Spironolactone PHA 03/23/25 In Process (Aldactone) 10:00 Allergies SWATI 03/23/25 In Process 04:31 Code Status CODE 03/23/25 Transmitted 04:31 Sodium Chloride Lock PHA 03/23/25 In Process (Saline Lock Ns) 06:00 Oxygen Per Hour RT 03/23/25 Transmitted 04:31 Hydrocodone-Acet PHA 03/23/25 In Process 5/325mg Tab ([place] 04:45 Ondansetron Hcl PHA 03/23/25 In Process (Zofran) 04:45 Fall Risk Precautions SWATI 03/23/[address] 04:31 Complete Blood Count LAB 03/24/25 Verified 04:00 Comprehensive LAB 03/24/25 Verified Metabolic Panel 04:00 Cardiac DIET 03/23/25 Transmitted Diet-2gna,Lofat,Lochol Breakfast Condition: Serious SWATI 03/23/25 In Process 04:31 Maintain Bed Rest SWATI 03/23/25 In Process 04:31 Sequential SWATI 03/23/25 In Process Compression Device Ibuprofen Tablet PHA 03/23/25 In Process (Motrin Tablet) 04:45 Rbc Morphology LAB 03/23/25 In Process 05:14 Admit ADMIT 03/23/25 Transmitted 05:56 Nitroglycerin PHA 03/23/25 Transmitted Sublingual (Ntrostat 06:00 Morphine Sulfate PHA 03/23/25 Transmitted Injection 06:00 Stat Ekg For Chest [facility] 03/23/25 Transmitted Pain 05:56 Notify Md Of Changes [facility] 03/23/25 Transmitted From Base 05:56 Dry Cleaning Attendant For [facility] 03/23/25 Transmitted 24 Hours 05:56 Emergency Dysrhythmia [facility] 03/23/25 Transmitted Protocol 05:56 Rhythm Strips Once [facility] 03/23/25 Transmitted Every Shift 05:56 Oxygen By Nasal 03/23/25 Transmitted Cannula 05:56 Problem List: (1) Abdominal ascites (2) Renal insufficiency (3) Transaminitis (4) Leg edema, right (5) Acute dyspnea (6) Cirrhosis of liver (7) Elevated liver enzymes (8) Anemia of chronic disease (9) Thrombocytopenia (10) Generalized weakness (11) Electrolyte imbalance Date of Service: Mar 23, 2025 Billing Provider: CALLIE DAVILA DNP Common Visit Codes: [id number] INP/OBS CARE (HIGH) CALLIE DAVILA DNP Mar 23, 2025 06:39
[2025-03-23] MEDS: LACTULOSE 20Gm/30ML SOLN PO SCH (06:42)
[2025-03-23] MEDS: CALCIUM GLUC 1,000mg/50ml-NS 50 ML IV ONE (06:42)
[2025-03-23] MEDS: ALBUMIN 25% 100 ML IV ONE (07:42)
[2025-03-23] MEDS: HYDROcodone-ACET 5/325MG TAB PO PRN (07:52)
[2025-03-23] MEDS: cefTRIAXone 1GM/50ML D5W 50 ML IV ONE (08:27)
--- NOTE | 2025-03-23 09:08 | DVH ---
Limited abdominal ultrasound INDICATION: ASCITES Technique: 2-D real-time ultrasound was performed with axial and sagittal images submitted for evalu ation. FINDINGS/IMPRESSION: There is a moderate amount of ascites seen in all 4 quadrants of the abdomen.
[2025-03-23] MEDS: SPIRONOLACTONE 25 MG TAB PO SCH (10:04)
--- NOTE | 2025-03-23 13:48 | DVHPNRES ---
Progress Note Date Seen: Mar 23, 2025 Resident Creating Document: JESS GUERRERO RESIDENT Medical Necessity Reason Pt with a Central, PICC or Fol: No Subjective Review of Systems Patient seen and examined at bedside. Patient is alert and oriented in person, place and time. 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 Upon my examination, patient has bilateral lower extremity 3+ pitting edema extending all the way from the foots to the abdomen with massive ascites. Consulted interventional radiologist for paracentesis. Patient denies fever/chills, chest pain, abdominal tenderness or any other symptoms. Objective vital signs Vital Sign Date Time Temp Pulse Resp B/P (MAP) Pulse Ox O2 Delivery O2 Flow Rate FiO2 03/23/25 13:29 92 12 128/73 (91) 97 03/23/25 11:15 98.3 98.3 03/23/25 07:48 Room Air* 0 21 medications Current Medications Medications Dose Ordered Sig/Luis A Route Start Time Stop Time Status Last Admin Dose Admin Lactulose 30 ml Q4HR PO 03/23/25 06:00 03/23/25 10:04 30 ML Spironolactone 50 mg DAILY PO 03/23/25 10:00 03/23/25 10:04 50 MG Sodium Chloride 10 ml Q8HR IV 03/23/25 06:00 03/23/25 06:22 10 ML Acetaminophen/ Hydrocodone Bitart 1 tab Q4HP PRN PO 03/23/25 04:45 03/23/25 07:52 1 TAB Ondansetron HCl 4 mg Q4HP PRN IV 03/23/25 04:45 Ibuprofen 400 mg Q6HP PRN PO 03/23/25 04:45 Nitroglycerin 0.4 mg Q5MINP PRN SL 03/23/25 06:00 Morphine Sulfate 2 mg Q30M PRN IV 03/23/25 06:00 Ceftriaxone Sodium 50 ml @ 100 mls/hr Q24H IV 03/24/25 06:00 Examination General: Patient alert and oriented in person, place and time. Patient following commands. HEENT: Normocephalic, atraumatic, moist mucous membranes; blind left eye with white deformity covering the whole conjunctivae Respiratory/pulmonary: Clear lungs bilaterally, no associated crackles or wheezes. Cardiovascular: Normal heart sounds S1 and S2 with no associated murmurs Abdomen: There is significant abdominal distention with anasarca and 3+ pitting edema from bilateral lower extremities all the way up to the abdomen. Fluid waves positive with significant ascites. No tenderness to palpation to the abdomen. Extremities: There is significant peripheral edema present on both lower extremities, 3+ pitting edema extending to the abdomen/anasarca. Peripheral Pulses: 3+ Radial (R). 3+ Radial (L). 3+ Dorsalis pedis (R). 3+ Dorsalis pedis(L) Skin: No rashes or pruritus, there is no sacral edema present at this time. Neurological: Intact cranial nerves with no focal neurologic deficits laboratory and microbiology Laboratory Tests 03/23/25 05:14 Test 03/23/25 05:14 Range/Units Serum Glucose 130 H 74-106 mg/dL Labs and/or images reviewed: Labs reviewed by me, Image(s) reviewed by me Problem List/Assessment/Plan Problem List/Assessment/Plan # Acute decompensated liver cirrhosis with massive ascites # Acute severe massive ascites # Possible SBP # Possible acute metabolic encephalopathy likely due to above #Coagulopathy due to liver cirrhosis # Severe thrombocytopenia due to liver cirrhosis -start lactulose 30 cc daily -start spironolactone 100 mg p.o. daily -start furosemide 40 mg p.o. daily -consulted interventional radiologist for paracentesis because of coagulopathy due to cirrhosis -patient denies alcohol/drugs or smoking history -liver enzymes, alkaline phosphatase and total bilirubin are elevated. -on IV antibiotics - Avoid hepatotoxic age HINA; vasomotor nephropathy versus hepatorenal syndrome # Hyperkalemia - K+ level is 5.3 - hold spironolactone for now. 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 -monitor labs # Blindness of the left eye #Right eye glaucoma -patient following up Ophthalmology in the outpatient setting # Primary hypertension -blood pressure in the lower side -continue furosemide and spironolactone as described above -monitor blood pressure closely Goals of care discussed with the patient for 20 mins: Full Code Plan discussed with Dr. Pino. Plan discussed with: Patient, Other (RN) Addendum Addendum Addendum I was physically present for the stern portions of the service provided to patient by THE RESIDENT. I have reviewed the documentation, discussed the case with resident and agree with the resident's documentation except as noted. Also the patient's clinical case was discussed with the patient's nurse. This medical document was created using an electronic medical record system with computerized dictation system. Although this document has been carefully reviewed, there might still be some phonetic and typographical errors. These areas are purely typographical due to imperfections of the software programs, and do not reflect any compromise in the patient's medical care. Late signature. Date of Service: Mar 23, 2025 Billing Provider: KEITH GARCIA MD Common Visit Codes: [id number] INP/OBS CARE(HIGH) Secondary Visit Codes: [id number] CARE PLAN 30 MINUTES (20 minutes) JESS GUERRERO RESIDENT Mar 23, 2025 13:48 KEITH GARCIA MD Mar 24, 2025 16:30
[2025-03-23] MEDS: SODIUM ZIRCONIUM CYCL 10 GM PAK PO ONE (14:04)
[2025-03-23 15:13] VITALS: PULSE 100; RESP 15; O2SAT 96
[2025-03-23 21:00] VITALS: BP 135/78; PULSE 94; RESP 19; TEMP 97.7; O2SAT 98
[2025-03-23 22:33] VITALS: PULSE 94; RESP 19; O2SAT 98
[2025-03-24] VITALS (12 sets, daily range): BP systolic 112–134; BP diastolic 64–82; PULSE 92–104; RESP 16–18; TEMP 97.1–98.6; O2SAT 96–98
--- NOTE | 2025-03-24 01:22 | DVHINCON2 ---
Date of service: Mar 24, [address] Walden Reason for Consultation Liver cirrhosis and ascites History of Present Illness The patient is a 70-year-old female with multiple past medical history including cryptogenic liver cirrhosis, hypertension, and ascites presented to [facility] ED with complaint of generalized weakness. Patient has liver cirrhosis and is on liver transplant list at [facility]. Patient reports symptoms progressively get worse with distended abdomen, shortness of breaths when lying flat, had paracentesis done on 02/09/2025, pt has reaccumulation of ascites. Patient was hospitalized here in December this year and also last year in 2023 for similar symptoms Past Medical History Past Medical History HTN, Liver cirrhosis, Fatty liver, HCA, brain aneurysm, Left eye blindness, Ascites, Pancytopenia, Encephalopathy, Past Surgical History Past Surgical History Brain aneurism coils Family History: FH: cancer G8 SISTER Allergies: Coded Allergies: Vitamin K (Verified Allergy, Severe, 11/13/23) Ketamine (Verified Allergy, Unknown, 02/21/24) Home Meds Active Scripts Furosemide (Furosemide) 40 Mg Tab, 1 TAB PO DAILY for 30 Days, #30 TAB 5 Refills Prov:GREYSON RICHARDS RESIDENT 01/12/25 Reported Medications Lactulose (Lactulose) 10 Gm/15 Ml Shreya, 15 ML PO TID PRN for LIVER 02/19/24 Current Medications Current Medications Medications (Trade) Dose Ordered Sig/Luis A Route PRN Reason Start Time Stop Time Status Last Admin Lactulose 30 ml Q4HR PO 03/23/25 06:00 03/23/25 22:34 Spironolactone (Aldactone) 50 mg DAILY PO 03/23/25 10:00 Hold 03/23/25 10:04 Sodium Chloride (Saline Lock Ns) 10 ml Q8HR IV 03/23/25 06:00 03/23/25 22:35 Acetaminophen/ Hydrocodone Bitart ([place] 5/325MG Tab) 1 tab Q4HP PRN PO MODERATE PAIN (4-6 PAIN SCALE) 03/23/25 04:45 03/23/25 07:52 Ondansetron HCl (Zofran) 4 mg Q4HP PRN IV NAUSEA / VOMITING 03/23/25 04:45 Ibuprofen (Motrin Tablet) 400 mg Q6HP PRN PO PAIN SCALE 1-3 OR TEMP>100.4 03/23/25 04:45 Nitroglycerin (Ntrostat Sublingual) 0.4 mg Q5MINP PRN SL FOR CHEST PAIN 03/23/25 06:00 Morphine Sulfate 2 mg Q30M PRN IV FOR CHEST PAIN 03/23/25 06:00 Ceftriaxone Sodium 50 ml @ 100 mls/hr Q24H IV 03/24/25 06:00 Furosemide (Lasix Tablet) 40 mg DAILY PO 03/24/25 10:00 Vital Signs Vital Signs Date Time Temp Pulse Resp B/P (MAP) Pulse Ox O2 Delivery O2 Flow Rate FiO2 03/23/25 22:33 94 19 98 Room Air* 0 21 03/23/25 21:00 97.7 135/78 (97) 97.7 Physical Exam General Appearance: Alert, Oriented X3, Cooperative, No acute distress HEENT: Atraumatic, PERRLA, EOMI, Mucous membr. moist/pink Respiratory: Normal air movement Cardiovascular: Regular rate, Normal S1, Normal S2, No murmurs Abdominal: Normal bowel sounds, Soft, No tenderness, No hepatospenomegaly, No masses moderate distension with tense ascites Extremities: No clubbing, No cyanosis, Normal pulses, Other (Lower extremity tenderness/swelling) Labs/Diagnostic Data Labs Test 03/23/25 05:14 03/22/25 23:20 Range/Units White Blood Count 5.4 4.4-10.8 10^3/uL Red Blood Count 2.88 L 4.0-5.20 10^6/uL Hemoglobin 10.4 L 12.2-16.2 g/dL Hematocrit 30.4 L 36.0-46.0 % Mean Corpuscular Volume 105.5 H 80.0-100.0 fL Mean Corpuscular Hemoglobin 36.1 H 28.0-32.0 pg Mean Corpuscular Hemoglobin Concent 34.2 32.0-36.0 g/dL Red Cell Distribution Width 16.6 H 11.8-14.3 % Platelet Count 27 L 140-450 10^3/uL Mean Platelet Volume 9.9 6.9-10.8 fL Neutrophils (%) (Auto) 80.2 H 37.0-80.0 % Lymphocytes (%) (Auto) 3.7 L 10.0-50.0 % Monocytes (%) (Auto) 15.8 H 0.0-12.0 % Eosinophils (%) (Auto) 0.1 0.0-7.0 % Basophils (%) (Auto) 0.2 0.0-2.0 % Neutrophils # (Auto) 4.3 1.6-8.6 10 ^3/uL Lymphocytes # (Auto) 0.2 L 0.4-5.4 10 ^3/uL Monocytes # (Auto) 0.9 0-1.3 10 ^3/uL Eosinophils # (Auto) 0 0-0.8 10 ^3/uL Basophils # (Auto) 0 0-0.2 10 ^3/uL Nucleated Red Blood Cells 0.0 % Platelet Estimate Decrea Clumped Platelets Few Large Platelets Few Macrocytosis Slight Sodium Level 132 L 136-145 mmol/L Potassium Level 5.3 H 3.5-5.1 mmol/L Chloride Level 101 98-107 mmol/L Carbon Dioxide Level 24 20-31 mmol/L Anion Gap 7 5-15 Blood Urea Nitrogen 36 H 9-23 mg/dL Creatinine 1.39 H 0.550-1.02 mg/dL Glomerular Filtration Rate Calc 41 >90 mL/min BUN/Creatinine Ratio 25.9 H 10.0-20.0 Serum Glucose 130 H 74-106 mg/dL Calcium Level 7.7 L 8.7-10.4 mg/dL Total Bilirubin 4.5 H 0.2-1.0 mg/dL Aspartate Amino Transferase (AST) 63 H <34 U/L Alanine Aminotransferase (ALT) 68 H 7-40 U/L Alkaline Phosphatase 112 46-116 U/L Total Protein 6.0 5.7-8.2 g/dL Albumin 2.1 L 3.2-4.8 g/dL Prothrombin Time 19.5 H 9.3-11.8 sec Prothrombin Time INR 1.97 H 0.9-1.15 Activated Partial Thromboplast Time 39.6 H 24.5-34.5 SEC ABD USG FINDINGS/IMPRESSION: There is a moderate amount of ascites seen in all 4 quadrants of the abdomen. Problems(with codes): (1) Abdominal ascites (2) Cirrhosis (3) Anemia of chronic disease (4) Generalized weakness (5) Thrombocytopenia (6) Elevated liver enzymes (7) Elevated liver function tests (8) Metabolic encephalopathy (9) Decompensated liver disease (10) Ascites (11) Hyperammonemia Plan/Recommendation Plan Start this patient on IV diuretics and oral spironolactone Arrange large volume paracentesis followed by IV albumin MELD score is 26 points suggestive of 19.6% three-month mortality Lactulose 30 mL p.o. twice a day for her hepatic encephalopathy Transfuse one pack of 10 units platelets 4 paracentesis Correct coagulopathy with vitamin K Monitor labs, diet as tolerated Once the patient is stabilized she needs to follow up with [facility] for further workup and to confirm if she is still active on the transplant list Overall her prognosis is guarded and condition is poor Plan discussed with: Patient ANIL RYDER MD Mar 24, 2025 01:21
[2025-03-24] MEDS: cefTRIAXone 1GM/50ML D5W 50 ML IV SCH (05:46)
[2025-03-24] MEDS: PANTOPRAZOLE 40 MG TAB PO SCH (05:47)
[2025-03-24 06:58] LABS: Alkaline Phosphatase 96 U/L (46-116); Anion Gap 7 (5-15); BUN/Creatinine Ratio 30.7 (10.0-20.0); Carbon Dioxide 23 mmol/L (20-31); Chloride 101 mmol/L (98-107); Glucose 97 mg/dL (74-106); Total Protein 5.8 g/dL (5.7-8.2)
[2025-03-24 07:00] LABS: Alanine Aminotransferase 77 U/L (7-40); Albumin 2.3 g/dL (3.2-4.8); Bilirubin, Total 5.2 mg/dL (0.2-1.0); Blood Urea Nitrogen 35 mg/dL (9-23); Calcium 8.5 mg/dL (8.7-10.4); Potassium 5.5 mmol/L (3.5-5.1); Sodium 131 mmol/L (136-145)
[2025-03-24 07:34] LABS: Hematocrit 28.7 % (36.0-46.0); Hemoglobin 9.9 g/dL (12.2-16.2)
[2025-03-24 07:38] LABS: Mean Corpuscular Hemoglobin 36.6 pg (28.0-32.0); Mean Corpuscular Volume 106.1 fL (80.0-100.0); Nucleated Red Blood Cells % 0.0 %
[2025-03-24] MEDS: FUROSEMIDE 40 MG TAB PO SCH (10:00)
--- NOTE | 2025-03-24 12:13 | DVHPN2 ---
Subjective The patient is seen and examined at bedside. The patient complained of severe abdominal pain. Reviewed: Care Plan, H&P, Labs, Medications, Previous Orders, Radiology Changes from previous H/P or p: No Changes Eyes: No Pain, No Vision change, No Conjunctivae inflammation, No Eyelid inflammation; Other (Left eye blindness); No Redness ENT: No Ear pain, No Ear discharge, No Nose pain, No Nose discharge, No Nose congestion, No Mouth pain, No Mouth swelling, No Throat pain, No Throat swelling, No Other Cardiovascular: No Chest Pain, No Palpitations, No Orthopnea, No Paroxysmal Noc. Dyspnea; Edema; No Lt Headedness, No Other Respiratory: No Cough, No Dry, No Shortness of breath, No SOB with excertion, No Wheezing, No Hemoptysis, No Pleuritic Pain, No Sputum, No Other Gastrointestinal: No Nausea, No Vomiting; Abdominal Pain; No Diarrhea, No Constipation, No Melena, No Hematochezia; Other (Distended abdomen) Genitourinary: No Dysuria, No Frequency, No Incontinence, No Hematuria, No Retention, No Other Musculoskeletal: other (Right lower extremity swelling); No neck pain, No shoulder pain, No arm pain, No back pain, No hand pain, No leg pain, No foot pain Skin: No Rash, No Lesions, No Jaundice, No Bruising, No Other Objective Vitals Vital Signs Date Time Temp Pulse Resp B/P (MAP) Pulse Ox O2 Delivery O2 Flow Rate FiO2 03/24/25 05:00 97.7 102 18 127/82 (97) 97 97.7 03/23/25 22:33 Room Air* 0 21 Intake/Output Intake and Output 03/24/25 07:00 Intake Total 150 ml Balance 150 ml Intake Oral 100 ml IV Total 50 ml # Voids 1 # Bowel Movements 1 General Appearance: Alert, Oriented X3, Cooperative, No acute distress HEENT: Atraumatic, PERRLA, EOMI, Mucous membr. moist/pink Neck: Supple Lungs: Clear to auscultation, Normal air movement Abdomen: Normal bowel sounds, Other (Distended due to ascites) Neuro: Cranial nerves 3-12 NL Psych/Mental Status: Mental status NL Medications Current Medications Medications Dose Ordered Sig/Luis A Route Start Time Stop Time Status Last Admin Dose Admin Lactulose 30 ml Q4HR PO 03/23/25 06:00 03/24/25 11:46 30 ML Spironolactone 50 mg DAILY PO 03/23/25 10:00 Hold 03/23/25 10:04 50 MG Sodium Chloride 10 ml Q8HR IV 03/23/25 06:00 03/24/25 05:46 10 ML Acetaminophen/ Hydrocodone Bitart 1 tab Q4HP PRN PO 03/23/25 04:45 03/24/25 11:44 1 TAB Ondansetron HCl 4 mg Q4HP PRN IV 03/23/25 04:45 Ibuprofen 400 mg Q6HP PRN PO 03/23/25 04:45 Nitroglycerin 0.4 mg Q5MINP PRN SL 03/23/25 06:00 Morphine Sulfate 2 mg Q30M PRN IV 03/23/25 06:00 Ceftriaxone Sodium 50 ml @ 100 mls/hr Q24H IV 03/24/25 06:00 03/24/25 05:46 100 MLS/HR Furosemide 40 mg DAILY PO 03/24/25 10:00 Pantoprazole Sodium 40 mg DAILY@0600 PO 03/24/25 06:00 Laboratory Results Laboratory Tests 03/24/25 06:09 Chemistry Test 03/24/25 06:09 Albumin 2.3 g/dL (3.2-4.8) L Calcium Level 8.5 mg/dL (8.7-10.4) L Total Protein 5.8 g/dL (5.7-8.2) LFT Test 03/24/25 06:09 Alanine Aminotransferase (ALT) 77 U/L (7-40) H Alkaline Phosphatase 96 U/L (46-116) Aspartate Amino Transferase (AST) 84 U/L (<34) H Total Bilirubin 5.2 mg/dL (0.2-1.0) H Labs and/or images reviewed: Labs reviewed by me Assessment/Plan Assessment/Plan # Acute decompensated liver cirrhosis with massive ascites # Acute severe massive ascites # Possible SBP # Possible acute metabolic encephalopathy likely due to above #Coagulopathy due to liver cirrhosis # Severe thrombocytopenia due to liver cirrhosis -start lactulose 30 cc daily -start spironolactone 100 mg p.o. daily -start furosemide 40 mg p.o. daily -consulted interventional radiologist for paracentesis because of coagulopathy due to cirrhosis -patient denies alcohol/drugs or smoking history -liver enzymes, alkaline phosphatase and total bilirubin are elevated. -on IV antibiotics - Avoid hepatotoxic age HINA; vasomotor nephropathy versus hepatorenal syndrome # Hyperkalemia - K+ level is 5.5 - hold spironolactone for now. - avoid nephrotoxic agents - Monitor BMP -I am adding one dose of Lokelma 10 g. 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 Paracentesis was consulted by IR because low platelets I will order one platelet and 2 units of fresh frozen plasma We will try the paracentesis again tomorrow Using air pollution analyst explained to the patient the need of transfusions and also plan of treatment. This medical document was created using an electronic medical record system with [employer] computerized dictation system. Although this document has been carefully reviewed, there may still be some phonetic and typographical errors. These areas are purely typographical due to imperfections of the software programs, and do not reflect any compromise in the patient's medical care. Plan discussed with: Patient, Other (impregnation operator and RN) Date of Service: Mar 24, 2025 Billing Provider: BEST PARKER MD Common Visit Codes: [id number] INP/OBS CARE(HIGH) BEST PARKER MD Mar 24, 2025 12:13
[2025-03-24] MEDS: SODIUM ZIRCONIUM CYCL 10 GM PAK PO ONE (14:56)
[2025-03-25] VITALS (12 sets, daily range): BP systolic 109–135; BP diastolic 63–75; PULSE 87–101; RESP 16–19; TEMP 97.1–98.4; O2SAT 95–99
[2025-03-25 06:53] LABS: Anion Gap 8 (5-15); Carbon Dioxide 23 mmol/L (20-31); Chloride 104 mmol/L (98-107); Potassium 4.7 mmol/L (3.5-5.1)
[2025-03-25 06:54] LABS: Calcium 8.8 mg/dL (8.7-10.4)
[2025-03-25 06:59] LABS: BUN/Creatinine Ratio 25.0 (10.0-20.0); Glucose 101 mg/dL (74-106)
[2025-03-25 07:03] LABS: Blood Urea Nitrogen 35 mg/dL (9-23); Sodium 135 mmol/L (136-145)
[2025-03-25 07:08] LABS: Hematocrit 25.1 % (36.0-46.0); Hemoglobin 8.6 g/dL (12.2-16.2); Mean Corpuscular Hemoglobin 36.3 pg (28.0-32.0); Mean Corpuscular Volume 106.0 fL (80.0-100.0); Nucleated Red Blood Cells % 0.3 %
[2025-03-25 07:32] LABS: INR 1.8 (0.9-1.15); Prothrombin Time 18.0 sec (9.3-11.8)
[2025-03-25 08:58] LABS: Macrocytosis Moderate
--- NOTE | 2025-03-25 11:24 | DVH ---
PROCEDURE: ULTRASOUND GUIDED PARACENTESIS HISTORY: 70 Female requiring paracentesis. TECHNIQUE: The risks and benefits of the procedure including but not limited to bleeding, infection and injury t o abdominal organs were explained to the patient and written informed consent was obtained. Optimal site for puncture was determined using ultrasound and the area sterilized and draped. Using a 5 Faroese Yueh catheter, paracentesis was performed in the right lower quadrant abdomen. Approximate ly 7.55 liters of serous fluid was removed. The patient tolerated the procedure well. There were no immediate complications. IMPRESSION: Ultrasound-guided paracentesis with no immediate complications. Performed by Dr. Virk.
--- NOTE | 2025-03-25 12:15 | DVHPN2 ---
Subjective The patient is seen and examined at bedside. The patient complained of severe abdominal pain. Reviewed: Care Plan, H&P, Labs, Medications, Previous Orders, Radiology Changes from previous H/P or p: No Changes Eyes: No Pain, No Vision change, No Conjunctivae inflammation, No Eyelid inflammation; Other (Left eye blindness); No Redness ENT: No Ear pain, No Ear discharge, No Nose pain, No Nose discharge, No Nose congestion, No Mouth pain, No Mouth swelling, No Throat pain, No Throat swelling, No Other Cardiovascular: No Chest Pain, No Palpitations, No Orthopnea, No Paroxysmal Noc. Dyspnea; Edema; No Lt Headedness, No Other Respiratory: No Cough, No Dry, No Shortness of breath, No SOB with excertion, No Wheezing, No Hemoptysis, No Pleuritic Pain, No Sputum, No Other Gastrointestinal: No Nausea, No Vomiting; Abdominal Pain; No Diarrhea, No Constipation, No Melena, No Hematochezia; Other (Distended abdomen) Genitourinary: No Dysuria, No Frequency, No Incontinence, No Hematuria, No Retention, No Other Musculoskeletal: other (Right lower extremity swelling); No neck pain, No shoulder pain, No arm pain, No back pain, No hand pain, No leg pain, No foot pain Skin: No Rash, No Lesions, No Jaundice, No Bruising, No Other Objective Vitals Vital Signs Date Time Temp Pulse Resp B/P (MAP) Pulse Ox O2 Delivery O2 Flow Rate FiO2 03/25/25 09:00 97.9 99 17 128/75 (92) 97 97.9 03/25/25 08:10 Room Air* 0 21 Intake/Output Intake and Output 03/25/25 07:00 Intake Total 743 ml Balance 743 ml Intake Oral 50 ml Blood Product 693 ml # Voids 3 # Bowel Movements 6 General Appearance: Alert, Oriented X3, Cooperative, No acute distress HEENT: Atraumatic, PERRLA, EOMI, Mucous membr. moist/pink Neck: Supple Lungs: Clear to auscultation, Normal air movement Abdomen: Normal bowel sounds, Other (Distended due to ascites) Neuro: Cranial nerves 3-12 NL Psych/Mental Status: Mental status NL Medications Current Medications Medications Dose Ordered Sig/Luis A Route Start Time Stop Time Status Last Admin Dose Admin Lactulose 30 ml Q4HR PO 03/23/25 06:00 7/1/25 11:39 30 ML Spironolactone 50 mg DAILY PO 03/23/25 10:00 Hold 03/23/25 10:04 50 MG Sodium Chloride 10 ml Q8HR IV 03/23/25 06:00 03/25/25 05:27 10 ML Acetaminophen/ Hydrocodone Bitart 1 tab Q4HP PRN PO 03/23/25 04:45 03/25/25 11:46 1 TAB Ondansetron HCl 4 mg Q4HP PRN IV 03/23/25 04:45 Ibuprofen 400 mg Q6HP PRN PO 03/23/25 04:45 Nitroglycerin 0.4 mg Q5MINP PRN SL 03/23/25 06:00 Morphine Sulfate 2 mg Q30M PRN IV 03/23/25 06:00 Ceftriaxone Sodium 50 ml @ 100 mls/hr Q24H IV 03/24/25 06:00 03/25/25 06:03 100 MLS/HR Furosemide 40 mg DAILY PO 03/24/25 10:00 Pantoprazole Sodium 40 mg DAILY@0600 PO 03/24/25 06:00 03/25/25 06:03 40 MG Laboratory Results Laboratory Tests 03/25/25 05:44 Chemistry Test 03/25/25 05:44 Calcium Level 8.8 mg/dL (8.7-10.4) Coagulation Test 03/25/25 05:44 Prothrombin Time 18.0 sec (9.3-11.8) H Prothrombin Time INR 1.80 (0.9-1.15) H Labs and/or images reviewed: Labs reviewed by me Assessment/Plan Assessment/Plan # Acute decompensated liver cirrhosis with massive ascites # Acute severe massive ascites # Possible SBP # Possible acute metabolic encephalopathy likely due to above #Coagulopathy due to liver cirrhosis # Severe thrombocytopenia due to liver cirrhosis -start lactulose 30 cc daily -start spironolactone 100 mg p.o. daily -start furosemide 40 mg p.o. daily -consulted interventional radiologist for paracentesis because of coagulopathy due to cirrhosis -patient denies alcohol/drugs or smoking history -liver enzymes, alkaline phosphatase and total bilirubin are elevated. -on IV antibiotics - Avoid hepatotoxic age HINA; vasomotor nephropathy versus hepatorenal syndrome # Hyperkalemia - K+ level is 5.5 - hold spironolactone for now. - avoid nephrotoxic agents - Monitor BMP -I am adding one dose of Lokelma 10 g. 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 Paracentesis was consulted by IR because low platelets I will order one platelet and 2 units of fresh frozen plasma We will try the paracentesis again tomorrow Using color room attendant explained to the patient the need of transfusions and also plan of treatment. 03/25/25 Patient platelet improved and INR improved after receive FFP and platelet. Proceed to paracentesis today. This medical document was created using an electronic medical record system with [employer] direct computerized dictation system. Although this document has been carefully reviewed, there may still be some phonetic and typographical errors. These areas are purely typographical due to imperfections of the software programs, and do not reflect any compromise in the patient's medical care. Plan discussed with: Patient My Orders Orders - BEST PARKER MD Procedure Category Date Status Time Cardiac DIET 03/24/25 Transmitted Diet-2gna,Lofat,Lochol Dinner Apply Z-Guard SWATI 03/24/25 In Process 14:05 Date of Service: Mar 25, 2025 Billing Provider: BEST PARKER MD Common Visit Codes: [id number] INP/OBS CARE(HIGH) BEST PARKER MD Mar 25, 2025 12:15
--- NOTE | 2025-03-25 14:37 | DVHPN2 ---
Progress Note - Dictate Date Seen: Mar 25, 2025 Medical Necessity Reason Pt with a Central, PICC or Fol: No Subjective Patient seen at bedside Slightly more awake and alert She is tolerating a diet Patient is S/P paracentesis with removal of 7.5 L of fluid No evidence of SBP on the fluid analysis Liver tests are abnormal but [place] [address] vital signs Vital Sign Date Time Temp Pulse Resp B/P (MAP) Pulse Ox O2 Delivery O2 Flow Rate FiO2 03/25/25 14:00 121/65 03/25/25 09:00 97.9 99 17 97 97.9 03/25/25 08:10 Room Air* 0 21 Total Intake and Output 03/24/25 03/24/25 03/25/25 15:00 23:00 07:00 Intake Total 268 ml 475 ml Balance 268 ml 475 ml medications Current Medications Medications Dose Ordered Sig/Luis A Route Start Time Stop Time Status Last Admin Dose Admin Lactulose 30 ml Q4HR PO 03/23/25 06:00 03/25/25 13:49 30 ML Spironolactone 50 mg DAILY PO 03/23/25 10:00 Hold 03/23/25 10:04 50 MG Sodium Chloride 10 ml Q8HR IV 03/23/25 06:00 03/25/25 14:01 10 ML Acetaminophen/ Hydrocodone Bitart 1 tab Q4HP PRN PO 03/23/25 04:45 03/25/25 11:46 1 TAB Ondansetron HCl 4 mg Q4HP PRN IV 03/23/25 04:45 Ibuprofen 400 mg Q6HP PRN PO 03/23/25 04:45 Nitroglycerin 0.4 mg Q5MINP PRN SL 03/23/25 06:00 Morphine Sulfate 2 mg Q30M PRN IV 03/23/25 06:00 Ceftriaxone Sodium 50 ml @ 100 mls/hr Q24H IV 03/24/25 06:00 03/25/25 06:03 100 MLS/HR Furosemide 40 mg DAILY PO 03/24/25 10:00 03/25/25 14:00 40 MG Pantoprazole Sodium 40 mg DAILY@0600 PO 03/24/25 06:00 03/25/25 06:03 40 MG objective General Appearance: Alert, Oriented X3, Cooperative, No acute distress; blindness HEENT: Atraumatic, PERRLA, EOMI, Mucous membr. moist/pink Respiratory: Normal air movement Cardiovascular: Regular rate, Normal S1, Normal S2, No murmurs Abdominal: Normal bowel sounds, Soft, No tenderness, No hepatospenomegaly, No masses; less distention ascites Extremities: No clubbing, No cyanosis, Normal pulses, Other (Lower extremity tenderness/swelling) laboratory and microbiology Laboratory Tests 03/25/25 05:44 Test 03/25/25 05:44 Range/Units Serum Glucose 101 74-106 mg/dL Problems(with codes): (1) Cirrhosis (2) Abdominal ascites (3) Anemia of chronic disease (4) Generalized weakness (5) Cirrhosis of liver (6) Elevated liver enzymes (7) Thrombocytopenia (8) Metabolic encephalopathy (9) Hyperammonemia Prognosis Plan Patient has decompensated cirrhosis with a MELD score of 23 points She also has acute on chronic renal insufficiency Continue supportive care Advance diet as tolerated Low-dose diuretics can be initiated and monitor her labs Outpatient follow up with [facility] for further management and transplant evaluation I believe the patient may not be a good candidate for transplant because of her age and left eye blindness however we will defer that to the [place] transplant team for evaluation Plan discussed with: Patient ANIL RYDER MD Mar 25, 2025 14:37
[2025-03-26] VITALS (8 sets, daily range): BP systolic 107–125; BP diastolic 62–70; PULSE 92–103; RESP 16–20; TEMP 97.6–98.6; O2SAT 96–100
[2025-03-26 13:07] LABS: Glucose, Body Fluid 120.0 mg/dL (.); LD, Body Fluid 54.0 IU/L (.)
[2025-03-26] MEDS ORDERED: FURO40TA4 PO (13:47)
--- NOTE | 2025-03-26 13:48 | DVHDS2 ---
Discharge Summary Date of Admission Mar 23, 2025 at 05:56 Date of Discharge: Mar 26, 2025 Labs/Diagnostic Data: Laboratory Results Test 03/25/25 10:45 03/25/25 05:44 03/24/25 06:09 03/23/25 05:14 Body Fluid Source Peritoneal fluid Body Fluid pH 9.0 Body Fluid WBC (Manual) 260 CUMM (0-200) Body Fluid RBC (Manual) 353 CUMM (0-2000) Body Fluid Mononuclear Cells 35 % Body Fluid Polymorphonuclear Cells 65 % (0-25) Body Fluid Glucose 120 mg/dL (.) Body Fluid Total Protein 0.5 g/dL (.) Body Fluid Lactate Dehydrogenase 54 IU/L (.) White Blood Count 3.3 10^3/uL (4.4-10.8) Red Blood Count 2.37 10^6/uL (4.0-5.20) Hemoglobin 8.6 g/dL (12.2-16.2) Hematocrit 25.1 % (36.0-46.0) Mean Corpuscular Volume 106.0 fL (80.0-100.0) Mean Corpuscular Hemoglobin 36.3 pg (28.0-32.0) Mean Corpuscular Hemoglobin Concent 34.3 g/dL (32.0-36.0) Red Cell Distribution Width 15.9 % (11.8-14.3) Platelet Count 41 10^3/uL (140-450) Mean Platelet Volume 9.4 fL (6.9-10.8) Neutrophils (%) (Auto) 80.9 % (37.0-80.0) Lymphocytes (%) (Auto) 3.5 % (10.0-50.0) Monocytes (%) (Auto) 14.6 % (0.0-12.0) Eosinophils (%) (Auto) 0.9 % (0.0-7.0) Basophils (%) (Auto) 0.1 % (0.0-2.0) Neutrophils # (Auto) 2.6 10 ^3/uL (1.6-8.6) Lymphocytes # (Auto) 0.1 10 ^3/uL (0.4-5.4) Monocytes # (Auto) 0.5 10 ^3/uL (0-1.3) Eosinophils # (Auto) 0 10 ^3/uL (0-0.8) Basophils # (Auto) 0 10 ^3/uL (0-0.2) Nucleated Red Blood Cells 0.3 % Platelet Estimate Decreased Clumped Platelets Present Macrocytosis Moderate Prothrombin Time 18.0 sec (9.3-11.8) Prothrombin Time INR 1.80 (0.9-1.15) Sodium Level 135 mmol/L (136-145) Potassium Level 4.7 mmol/L (3.5-5.1) Chloride Level 104 mmol/L (98-107) Carbon Dioxide Level 23 mmol/L (20-31) Anion Gap 8 (5-15) Blood Urea Nitrogen 35 mg/dL (9-23) Creatinine 1.40 mg/dL (0.550-1.02) Glomerular Filtration Rate Calc 41 mL/min (>90) BUN/Creatinine Ratio 25.0 (10.0-20.0) Serum Glucose 101 mg/dL (74-106) Calcium Level 8.8 mg/dL (8.7-10.4) Total Bilirubin 5.2 mg/dL (0.2-1.0) Aspartate Amino Transferase (AST) 84 U/L (<34) Alanine Aminotransferase (ALT) 77 U/L (7-40) Alkaline Phosphatase 96 U/L (46-116) Ammonia 28 umol/L (11-32) Total Protein 5.8 g/dL (5.7-8.2) Albumin 2.3 g/dL (3.2-4.8) Large Platelets Few Test 03/22/25 23:20 Activated Partial Thromboplast Time 39.6 SEC (24.5-34.5) Other Laboratory Tests 03/25/25 05:44 Final Diagnosis/Problems List ascites Discharge Disposition: Home Discharge Instruct/Medications Diet: Cardiac 2g Na,low cholest Activity: No Restrictions, As Tolerated Follow Up/Referral: pcp 1-2 weeks Scheduled Furosemide (Furosemide), 1 TAB PO DAILY Scheduled PRN Lactulose (Lactulose), 15 ML PO TID PRN for LIVER, (Reported) Discharge Statement: "Patient was advised to return to the ER or call 911 if any headaches, dizziness, shortness of breath, chest pain, abdominal pain, bleeding, fevers, or worsening of medical condition. Patient was counseled about treatment plan, medications, possible side effects, patientverbalized understanding. All questions were answered to the best of my ability. This discharge took greater then 30 minutes in planning, reviewing documentation, counseling the patient, and discussing with other team members." ASSESSMENT ASSESSMENT Assessment ascites BEST PARKER MD Mar 26, 2025 13:48
--- NOTE | 2025-03-26 17:43 | DVH ---
Right lower extremity venous duplex Clinical History: R/O DVT, right lower extremity swollen Comparison: US RT LOWER DVT on DOS: 03/22/25 Technique: Duplex Doppler evaluation of the deep venous system of the right lower extremity from the common femo ral vein to the popliteal vein including color Doppler and spectral/pulsed waveform analysis was perf ormed. Findings: The common femoral vein demonstrates appropriate compressibility and waveform variability. There is compressibility/patency of the great saphenous vein at the proximal thigh. The femoral vein demonstrates appropriate compressibility and waveform variability. The deep femoral vein demonstrates appropriate compressibility and waveform variability. The popliteal vein demonstrates appropriate compressibility and waveform variability. There is normal compressibility at the tibioperoneal trunk. Impression: 1. No right femoropopliteal venous thrombosis.
--- NOTE | 2025-03-26 22:36 | DVHPN2 ---
Subjective The patient is seen and examined at bedside. The patient complained complains of knee weakness. Reviewed: Care Plan, H&P, Labs, Medications, Previous Orders, Radiology Changes from previous H/P or p: No Changes Eyes: No Pain, No Vision change, No Conjunctivae inflammation, No Eyelid inflammation; Other (Left eye blindness); No Redness ENT: No Ear pain, No Ear discharge, No Nose pain, No Nose discharge, No Nose congestion, No Mouth pain, No Mouth swelling, No Throat pain, No Throat swelling, No Other Cardiovascular: No Chest Pain, No Palpitations, No Orthopnea, No Paroxysmal Noc. Dyspnea; Edema; No Lt Headedness, No Other Respiratory: No Cough, No Dry, No Shortness of breath, No SOB with excertion, No Wheezing, No Hemoptysis, No Pleuritic Pain, No Sputum, No Other Gastrointestinal: No Nausea, No Vomiting; Abdominal Pain; No Diarrhea, No Constipation, No Melena, No Hematochezia; Other (Distended abdomen) Genitourinary: No Dysuria, No Frequency, No Incontinence, No Hematuria, No Retention, No Other Musculoskeletal: other (Right lower extremity swelling); No neck pain, No shoulder pain, No arm pain, No back pain, No hand pain, No leg pain, No foot pain Skin: No Rash, No Lesions, No Jaundice, No Bruising, No Other Objective Vitals Vital Signs Date Time Temp Pulse Resp B/P (MAP) Pulse Ox O2 Delivery O2 Flow Rate FiO2 03/26/25 17:00 98.0 92 16 119/69 (86) 99 98.0 03/26/25 08:00 Room Air* 0 21 Intake/Output Intake and Output 03/26/25 07:00 Intake Total 1346 ml Balance 1346 ml Intake Oral 1296 ml IV Total 50 ml # Voids 5 # Bowel Movements 11 General Appearance: Alert, Oriented X3, Cooperative, No acute distress HEENT: Atraumatic, PERRLA, EOMI, Mucous membr. moist/pink Neck: Supple Lungs: Clear to auscultation, Normal air movement Abdomen: Normal bowel sounds, Other (Distended due to ascites) Neuro: Cranial nerves 3-12 NL Psych/Mental Status: Mental status NL Medications Current Medications Medications Dose Ordered Sig/Luis A Route Start Time Stop Time Status Last Admin Dose Admin Lactulose 30 ml Q4HR PO 03/23/25 06:00 03/26/25 21:33 30 ML Spironolactone 50 mg DAILY PO 03/23/25 10:00 Hold 03/23/25 10:04 50 MG Sodium Chloride 10 ml Q8HR IV 03/23/25 06:00 03/26/25 21:33 10 ML Acetaminophen/ Hydrocodone Bitart 1 tab Q4HP PRN PO 03/23/25 04:45 03/26/25 21:46 1 TAB Ondansetron HCl 4 mg Q4HP PRN IV 03/23/25 04:45 Ibuprofen 400 mg Q6HP PRN PO 03/23/25 04:45 Nitroglycerin 0.4 mg Q5MINP PRN SL 03/23/25 06:00 Morphine Sulfate 2 mg Q30M PRN IV 03/23/25 06:00 Ceftriaxone Sodium 50 ml @ 100 mls/hr Q24H IV 03/24/25 06:00 03/26/25 05:06 100 MLS/HR Furosemide 40 mg DAILY PO 03/24/25 10:00 03/26/25 10:41 40 MG Pantoprazole Sodium 40 mg DAILY@0600 PO 03/24/25 06:00 03/26/25 05:05 40 MG Laboratory Results Laboratory Tests 03/25/25 05:44 Microbiology Microbiology Date/Time Source Procedure Growth Status 03/25/25 10:45 Ascities Fluid Gram Stain - Final Resulted 03/25/25 10:45 Ascities Fluid Body Fluid Culture - Preliminary Resulted Labs and/or images reviewed: Labs reviewed by me Assessment/Plan Assessment/Plan # Acute decompensated liver cirrhosis with massive ascites # Acute severe massive ascites # Possible SBP # Possible acute metabolic encephalopathy likely due to above #Coagulopathy due to liver cirrhosis # Severe thrombocytopenia due to liver cirrhosis -start lactulose 30 cc daily -start spironolactone 100 mg p.o. daily -start furosemide 40 mg p.o. daily -consulted interventional radiologist for paracentesis because of coagulopathy due to cirrhosis -patient denies alcohol/drugs or smoking history -liver enzymes, alkaline phosphatase and total bilirubin are elevated. -on IV antibiotics - Avoid hepatotoxic age HINA; vasomotor nephropathy versus hepatorenal syndrome # Hyperkalemia - K+ level is 5.5 - hold spironolactone for now. - avoid nephrotoxic agents - Monitor BMP -I am adding one dose of Lokelma 10 g. 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 Paracentesis was consulted by IR because low platelets I will order one platelet and 2 units of fresh frozen plasma We will try the paracentesis again tomorrow Using mathematical statistician explained to the patient the need of transfusions and also plan of treatment. 03/25/25 Patient platelet improved and INR improved after receive FFP and platelet. Proceed to paracentesis today. 03/26/25: plan to discharge patient home. However, she has severe right knee pain and cannot stand up. Patient also has right leg edema. will order Knee Xray to rule out fracture and also US RLE r/o DVT This medical document was created using an electronic medical record system with [employer] direct computerized dictation system. Although this document has been carefully reviewed, there may still be some phonetic and typographical errors. These areas are purely typographical due to imperfections of the software programs, and do not reflect any compromise in the patient's medical care. Plan discussed with: Patient My Orders Orders - BEST PARKER MD Procedure Category Date Status Time Discharge DISCHARGE 03/26/25 Transmitted 13:47 Rt Lower Dvt US 03/26/25 Resulted 16:33 Date of Service: Mar 26, 2025 Billing Provider: BEST PARKER MD Common Visit Codes: [id number] INP/OBS CARE(HIGH) BEST PARKER MD Mar 26, 2025 22:36
[2025-03-27 01:00] VITALS: BP 124/62; PULSE 102; RESP 19; TEMP 98.3; O2SAT 98
[2025-03-27 05:00] VITALS: BP_SYST 123; BP_SYST 124; BP_DIAS 56; BP_DIAS 57; PULSE 92; PULSE 94; RESP 17; TEMP 98.2; TEMP 98.4; O2SAT 94; O2SAT 98
[2025-03-27 08:00] VITALS: PULSE 94; PULSE 96; RESP 17; O2SAT 99
[2025-03-27 09:00] VITALS: BP 117/69; PULSE 96; RESP 17; TEMP 98.1; O2SAT 99
--- NOTE | 2025-03-27 11:05 | DVH ---
EXAM: XY R KNEE 3V XRAY CLINICAL INDICATION: RULE OUT FRACTURE TECHNIQUE: XY R KNEE 3V XRAY Comparison: None FINDINGS/IMPRESSION: There is no evidence of acute fracture or dislocation. Moderate right knee osteoarthritis. The alignment is anatomical. There is no radiopaque foreign body.
[2025-03-27 12:44] VITALS: BP 122/66; PULSE 100; RESP 16; TEMP 97.7; O2SAT 95
[2025-03-27] MEDS: HYDROcodone-ACET 10/325MG TAB PO PRN (14:30)
[2025-03-27 16:45] VITALS: BP 120/68; PULSE 100; RESP 16; TEMP 98; O2SAT 95
[2025-03-27] MEDS ORDERED: TRAM100T32 PO (17:29)
== END 2025-03-27 19:20 | disposition home or self-care (01) ==
LOC: EDBD 22:56 → ER 22:56 → OVERFLOW 03-23 05:56 → TELE-WESTW 03-23 21:01
PROVIDERS: ADMIT Internal Medicine; ATTEND Internal Medicine
PROC: 30233K1 Transfusion of Nonautologous Frozen Plasma into Peripheral Vein, Percutaneous Approach (ICD-10-PCS; 2025-03-24)
PROC: 0W9G3ZZ Drainage of Peritoneal Cavity, Percutaneous Approach (ICD-10-PCS; principal; 2025-03-25)
DX: K74.60 Unspecified cirrhosis of liver (principal); D61.818 Other pancytopenia; Z76.82 Awaiting organ transplant status; N17.9 Acute kidney failure, unspecified; R18.8 Other ascites; D68.4 Acquired coagulation factor deficiency; D63.8 Anemia in other chronic diseases classified elsewhere; D69.59 Other secondary thrombocytopenia; I10 Essential (primary) hypertension; D50.9 Iron deficiency anemia, unspecified; K76.0 Fatty (change of) liver, not elsewhere classified; N28.9 Disorder of kidney and ureter, unspecified; H54.62 Unqualified visual loss, left eye, normal vision right eye; E87.5 Hyperkalemia; H40.89 Other specified glaucoma; Z88.8 Allergy status to other drugs, medicaments and biological substances; Z85.05 Personal history of malignant neoplasm of liver
CPT/HCPCS: 36415; 71045; 73562; 76705; 76942; 80048; 80053; 82140; 83986; 85025; 85610; 85730; 86850; 86900; 86901; 87205; 89051; 93971; 96365; 97163; 99291; G0378; P9047